=== PATIENT | male | born 1955 | race Caucasian/White ===

== ENCOUNTER → 2016-10-04 | Outpatient (REF) | payer MEDICARE, OTHER ==
[~2016-10-04] MED LIST: AMLO5TAB OR; ASPI81TA31 OR; CLAR5CHW OR; HYDR25TA6 OR; MAXA10TA17 OR; MELOPOW PO; MICA40TA OR; NEXI20CA OR; PERC5TAB8 OR; SYMB80AE IN; TELM20TA OR; VENTAER IN
== END | disposition home or self-care (01) ==
LOC: M LAB REF 16:20
PROVIDERS: ATTEND Surgery
DX: D23.4 Other benign neoplasm of skin of scalp and neck (principal); D18.01 Hemangioma of skin and subcutaneous tissue

== ENCOUNTER → 2016-10-14 | Outpatient (REF) | payer MEDICARE, OTHER | END | disposition home or self-care (01) | LOC: EEVIPCON 16:36 → M LAB REF 16:36 | PROVIDERS: ATTEND Physician Assistant | DX: T81.4XXD Infection following a procedure, subsequent encounter (principal) ==

== ENCOUNTER → 2017-04-26 | Outpatient (REF) | payer MEDICARE, OTHER ==
[~2017-04-26] MED LIST changes: +ALLE10TA2 PO; +ALLO15TA PO; +ASPI81CH PO; +ATOR40TA75 PO; +BREO1INH3 INH; +CELE100C PO; +IMBR1CAP PO; +MAXA10TA15 PO; +METH1TAB40 PO; +MICA40TA PO; +MYRB25TA PO; +PANT40TA2 PO; +PERCOCET PO; +PRED50TA PO; +PROAAER10 INH; +ROBA750T4 PO
[2017-04-26 19:51] LABS: REASON FOR REVIEW COMPREHENSIVE REVIEW
[2017-04-26 20:06] LABS: IMMUNOGLOBULIN M 29.7 MG/DL (40-230)
[2017-04-29 00:07] LABS: BETA 2 MICROGLOBULIN 3.1 mg/L (0.6-2.4); FREE KAPPA LIGHT CHAINS SERUM 51.8 mg/L (3.3-19.4); FREE LAMBDA LIGHT CHAINS SERUM 11.5 mg/L (5.7-26.3); KAPPA/LAMBDA RATIO SERUM 4.5 (0.26-1.65)
== END ==
LOC: M LAB REF 16:45
PROVIDERS: ATTEND Internal Medicine Medical Oncology
DX: R59.0 Localized enlarged lymph nodes (principal); D72.829 Elevated white blood cell count, unspecified

== ENCOUNTER → 2017-05-02 | Outpatient (CLI) | payer MEDICARE, OTHER ==
[~2017-05-02] MED LIST changes: +GASTROGRAFIN SOLUTION 30ML (Q9963) As Ordered ONE; +ISOVUE-370 76% 100ML VIAL (Q9967) As Ordered ONE
--- NOTE | 2017-05-02 16:39 | REP ---
CT NECK WITH CONTRAST: HISTORY: Lymphadenopathy. CONTRAST: Isovue-370 75 mL. The naso-, fransisca-, hypopharynx, larynx, and subglottic trachea are normal in appearance. An enlarged lymph node 1.3 cm in width is present in the left parotid gland. The right parotid submandibular and thyroid glands are normal in size and density. There are multiple enlarged lymph nodes in the internal jugular chains, posterior triangles, submandibular, submental and supraclavicular areas. The largest lymph node mass in the right internal jugular chain measures 2.6 cm. The largest lymph node mass in the left internal jugular chain measures 2 cm. An enlarged lymph node 2.4 cm in width is present in the right submandibular area. An enlarged lymph node mass 2.8 cm in width is present in the left submandibular area. The largest lymph node in the submental area measures 1.2 cm. The largest lymph node in the right posterior triangle measures 1.7 cm. The largest lymph node mass in the left posterior triangle measures 2.7 cm. The largest lymph node mass in the right supraclavicular area measures 1.4 cm. The largest lymph node mass in the left supraclavicular area measures 2.7 cm. Multiple lymph nodes are present in the visualized mediastinum. The largest lymph node measures 1.7 cm in width. The lung apices are clear. Minimal degenerative change is present in the cervical spine. The sinuses are clear. IMPRESSION:Lymphadenopathy as described above. Signed by Ron Myers MD 05/02/2017 04:51 P
--- NOTE | 2017-05-02 16:56 | REP ---
The CT of the chest with IV contrast: Comparison is eight 11/14/2010. There are no lung masses, nodules, infiltrates or effusions. There are multiple enlarged axillary nodes bilaterally. This is an interval change. There are multiple mediastinal nodes, some of which are enlarged measuring up to 15 mm. This is an interval change. There are enlarged bilateral hilar nodes as an interval change measuring up to 11 mm on the right and 11 mm on the left. The thoracic aorta is unremarkable. Cardiac size normal. There is no pericardial effusion. Impression: Multiple enlarged mediastinal, hilar and axillary nodes bilaterally. Signed by Tray Triana MD 05/02/2017 04:49 P
--- NOTE | 2017-05-02 17:05 | REP ---
CT abdomen pelvis without and with IV contrast and with bowel contrast: Comparison is 10/29/2014. The liver is homogeneous and normal size. The spleen is homogeneous and enlarged measuring 15 cm craniocaudad (10 cm previously). The gallbladder and pancreas are unremarkable. There are numerous mesenteric and retroperitoneal lymph nodes many of which are enlarged. These were not present previously. The adrenals are unremarkable. The kidneys are unremarkable. The aorta is unremarkable. There are numerous small round filling defects within the opacified small bowel loops. This is nonspecific and could represent an ingested material or could represent numerous small bowel wall, polypoid lesions. Pelvis: The appendix is unremarkable. There are enlarged internal and external iliac nodes and enlarged femoral nodes bilaterally. There are enlarged inguinal nodes bilaterally. The bladder is unremarkable. There is descending colon and sigmoid colon diverticulosis without diverticulitis. Impression: There are numerous retroperitoneal nodes including periaortic, internal, and external iliac, femoral and inguinal nodes. There are numerous mesenteric nodes. There is no ascites. There are numerous small round filling defects in the opacified small bowel loops, ingested material versus polypoid lesions. Splenomegaly. No ascites. Signed by Tray Triana MD 05/02/2017 04:57 P
== END ==
LOC: M RAD 13:35
PROVIDERS: ATTEND Internal Medicine Medical Oncology
DX: R59.0 Localized enlarged lymph nodes (principal); K57.90 Diverticulosis of intestine, part unspecified, without perforation or abscess without bleeding; R16.1 Splenomegaly, not elsewhere classified; D72.820 Lymphocytosis (symptomatic)
CPT/HCPCS: 70491; 71260; 74178; Q9963; Q9967

== ENCOUNTER → 2017-05-09 | Outpatient (REF) | payer MEDICARE, OTHER ==
[~2017-05-09] MED LIST changes: -GASTROGRAFIN SOLUTION 30ML (Q9963) As Ordered ONE; -ISOVUE-370 76% 100ML VIAL (Q9967) As Ordered ONE
[2017-05-09 19:25] LABS: INR 0.94
== END ==
LOC: M LAB REF 16:30
PROVIDERS: ATTEND Internal Medicine Medical Oncology
DX: D64.9 Anemia, unspecified (principal); D72.829 Elevated white blood cell count, unspecified; D69.6 Thrombocytopenia, unspecified

== ENCOUNTER → 2017-05-10 | Outpatient (REF) | payer MEDICARE, OTHER | LOC: M LAB REF 13:37 | PROVIDERS: ATTEND Internal Medicine Medical Oncology | DX: C91.10 Chronic lymphocytic leukemia of B-cell type not having achieved remission (principal) ==

== ENCOUNTER → 2017-05-15 | Outpatient (CLI) | payer MEDICARE, OTHER ==
[~2017-05-15] MED LIST changes: +GASTROGRAFIN SOLUTION 30ML (Q9963) As Ordered ONE; +ISOVUE-370 76% 100ML VIAL (Q9967) As Ordered ONE
--- NOTE | 2017-05-15 12:41 | REP ---
ABDOMINAL SERIES: Two views. HISTORY: Acute right lower quadrant pain. Rebound tenderness. Comparison is made with recent CT study May 02, 2017. FINDINGS: Supine and erect views of the abdomen are obtained. There is air and stool in a nondistended colon. There are a few small bowel air-fluid levels. No evidence of free air. No mass or organomegaly seen. The spleen appears enlarged and being somewhat elongate in the left upper quadrant 14.6 cm in craniocaudal span on the upright image. There are several loops of air and fluid-filled small bowel, which are mildly dilated in the left mid abdomen. These are nonspecific. Air and stool is seen in a nondistended colon proximally and distally. IMPRESSION: 1. Splenomegaly. 2. Nonspecific mildly dilated air and fluid filled loops of small bowel in the left mid abdomen. Ileus versus obstruction. No colonic dilation seen. Signed by Fidencio Negro MD 05/15/2017 03:01 P
--- NOTE | 2017-05-15 14:48 | REP ---
CT ABDOMEN PELVIS WITH IV AND ORAL CONTRAST: HISTORY: Acute right lower quadrant pain. Rebound tenderness. Comparison CT study May 02, 2017. Comparison is made with today's radiographs. CT contrast dose: 100 mL of intravenous Isovue [address] FINDINGS: The lung bases are clear. The spleen remains enlarged measuring 15.8 cm in greatest anteroposterior span, 17.0 cm on May 02, 2017. No focal splenic lesion is seen. Liver is unremarkable. Gallbladder and pancreas show no abnormality. No adrenal lesion is seen. There is cortical scarring affecting the right kidney unchanged. Small and large bowel loops show no evidence of obstruction. There is left colonic diverticulosis without CT evidence of diverticulitis. There is no evidence of free intraperitoneal air. There is diffuse retroperitoneal bilateral iliac and bilateral inguinal lymphadenopathy. Many of these have enlarged since the recent study of May 02, 2017. There is a lymph node between the portal vein and the vena cava in the upper abdomen, which measures 2.3 cm in short axis dimension today, 1.6 cm on May 02. At the level of the lower pole right kidney, there is a retrocaval lymph node measuring 1.8 cm in short axis dimension today, previously 1.4 cm. A distal left periaortic node has increased from 1.5 to 1.9 cm in short axis dimension. There is a right common iliac artery lymph node which measures 2.8 x 2.7 cm today, previously 2.0 x 2.2 cm. There are several bulky right external iliac lymph nodes and there is some surrounding fat streaking implying edema. Similar slight enlargement is seen in bilateral inguinal and left iliac lymph nodes since the recent prior study. No other acute finding. IMPRESSION: No evidence of bowel obstruction seen. There is progressive and fairly extensive adenopathy in the celiac axis, periportal, periaortic pericaval, bilateral external and internal iliac, and bilateral inguinal lymph node chains. Several lymph nodes at multiple sites have enlarged somewhat since the May 02, 2017 study. Signed by Fidencio Negro MD 05/15/2017 03:08 P
== END ==
LOC: M RAD 11:40
PROVIDERS: ATTEND Internal Medicine Medical Oncology
DX: R16.1 Splenomegaly, not elsewhere classified (principal)
CPT/HCPCS: 74020; 74177; Q9963; Q9967

== ENCOUNTER → 2017-05-17 | Outpatient (CLI) | payer MEDICARE, OTHER ==
[~2017-05-17] MED LIST changes: -GASTROGRAFIN SOLUTION 30ML (Q9963) As Ordered ONE; -ISOVUE-370 76% 100ML VIAL (Q9967) As Ordered ONE
--- NOTE | 2017-05-17 14:30 | REP ---
PET/CT: HISTORY: Restaging B-cell non-Hodgkin's lymphoma. COMPARISONS: Comparison is made with recent CT studies of the neck, chest, abdomen and pelvis. No comparison PET/ CT. TECHNIQUE: 58 minutes following the intravenous injection of a 10.9 mCi dose of F-18 FDG, three-dimensional PET scintigraphy is acquired from the skull base to the proximal thighs. Triplanar noncontrast CT scanning is acquired through the same anatomic range for attenuation correction, and image registration with scan parameters optimized to minimize radiation exposure to the patient. PET scintigraphy and CT datasets were fused and displayed on a workstation with multiplanar and projection display capability. PET/CT FINDINGS: There is fairly extensive hypermetabolic lymphadenopathy bilaterally in the neck, axillary, mediastinal, upper and lower retroperitoneal, iliac, and inguinal lymph node chains. Maximum standard uptake value in the cervical nodes and axillary nodes bilaterally is in the range of 9.8. Mediastinal nodes are somewhat smaller and a little less avid with maximum standard uptake value in the range of 5.6. Retroperitoneal lymph node avidity is fairly high with maximum standard uptake value 11.1 in upper abdominal retroperitoneal nodes. Sofia uptake in the common iliac lymph node chains is in the range of 10.6 to 10.9. Inguinal hypermetabolic sofia uptake shows standard uptake values of 8.0 and 9.3 on the right and left. No abnormal skeletal hypermetabolic uptake is seen. No abnormal pulmonary parenchymal hypermetabolic uptake. IMPRESSION: Extensive hypermetabolic bilateral lymphadenopathy in the neck, axillary, mediastinal, upper and lower retroperitoneal, iliac, and inguinal lymph node chains. Signed by Fidencio Negro MD 05/17/2017 03:25 P
== END ==
LOC: M PLARAD 08:12
PROVIDERS: ATTEND Internal Medicine Medical Oncology
DX: C85.10 Unspecified B-cell lymphoma, unspecified site (principal)
CPT/HCPCS: 78815; A9552

== ENCOUNTER 2017-05-22 10:38 | Day surgery (SDC) | payer MEDICARE, OTHER ==
[~2017-05-22] VITALS: Ht 170.2 cm; Wt 95.7 kg
[~2017-05-22 10:38] MED LIST changes: -ALLO15TA PO; -PERCOCET PO; -PRED50TA PO; -PROAAER10 INH
[2017-05-22] MEDS ORDERED: LR 1,000 ML IV ONE (10:45)
[2017-05-22] MEDS ORDERED: PERCOCET PO (11:37)
[2017-05-22] MEDS ORDERED: BACITRACIN OINT 30GM As Ordered ONE (13:03)
[2017-05-22] MEDS ORDERED: LIDOCAINE W/EPINEPHRINE 1% 20ML VIAL As Ordered ONE (13:04)
[2017-05-22] MEDS ORDERED: fentaNYL 100 MCG/2 ML INJECTION (J3010) As Ordered ONE ×2 (13:41→13:44)
[2017-05-22] MEDS ORDERED: dexameTHASONE 4 MG/ML 1ML VIAL (J1100) As Ordered ONE (13:41)
[2017-05-22] MEDS ORDERED: MIDAZOLAM INJ 2 MG/2 ML VIAL (J2250) As Ordered ONE (13:41)
[2017-05-22] MEDS ORDERED: PHENYLephrine HCL 500 MCG/5 ML (100MCG/ML) SYRINGE (J2370) As Ordered ONE (13:42)
[2017-05-22] MEDS ORDERED: ePHEDrine SULFATE 25 MG/5 ML(5MG/ML) SYRINGE As Ordered ONE ×2 (13:42→14:37)
[2017-05-22] MEDS ORDERED: VASOPRESSIN INJ 20 UNITS/ML VIAL As Ordered ONE (13:56)
[2017-05-22] MEDS ORDERED: ROCURONIUM BROMIDE 50 MG/5 ML VIAL/SYRINGE As Ordered ONE (13:58)
[2017-05-22] MEDS ORDERED: PROPOFOL 200 MG/20 ML VIAL As Ordered ONE ×2 (13:59→14:19)
[2017-05-22] MEDS ORDERED: SUCCINYLCHOLINE 100 MG/5 ML SYRINGE (J0330) As Ordered ONE (13:59)
[2017-05-22] MEDS ORDERED: NEOSTIGMINE 1MG/ML 5 ML SYRINGE (J2710) As Ordered ONE (14:03)
[2017-05-22] MEDS ORDERED: GLYCOPYRROLATE INJ 0.2 MG/ML 2 ML VIAL As Ordered ONE (14:03)
[2017-05-22] MEDS ORDERED: ONDANSETRON 4MG/2ML VIAL (J2405) As Ordered ONE (14:04)
[2017-05-22] MEDS ORDERED: LIDOCAINE 2% INJ 100 MG/5 ML SDV (FOR ANES.) As Ordered ONE (14:05)
[2017-05-22] MEDS: ePHEDrine SULFATE 25 MG/5 ML(5MG/ML) SYRINGE IV SCH ×3 (14:30→14:38)
[2017-05-22] MEDS ORDERED: LR 1,000 ML IV SCH (14:45)
[2017-05-22] MEDS ORDERED: fentaNYL 100 MCG/2 ML INJECTION (J3010) IV PRN (14:45)
[2017-05-22] MEDS ORDERED: PERCOCET 5MG/325MG TAB PO PRN ×2 (14:45)
[2017-05-22] MEDS ORDERED: ONDANSETRON 4 MG TAB (S0181) PO PRN (14:45)
[2017-05-22] MEDS ORDERED: ONDANSETRON 4MG/2ML VIAL (J2405) IV PRN (14:45)
[2017-05-22] MEDS ORDERED: METOCLOPRAMIDE INJ 10MG/2ML VIAL (J2765) IV PRN (14:45)
[2017-05-22 17:30] VITALS: BP 137/79
--- NOTE | 2017-05-22 20:20 | RO ---
DATE OF PROCEDURE: 05/22/2017 PREPROCEDURE DIAGNOSIS: Lymphadenopathy. POSTPROCEDURE DIAGNOSIS: Lymphadenopathy. PROCEDURE: Excision of posterior triangle lymph nodes. SURGEON: Dr. Fabricio Marmolejo FLAT KNITTER: ANESTHESIA: INDICATIONS: This is a patient who presents with diffuse lymphadenopathy, thought to have a hematological or lymphatic neoplasm. Tissue diagnosis is required for establishing treatment plan. DESCRIPTION OF PROCEDURE: Satisfactory general endotracheal anesthesia was administered, patient was placed in a position that allowed access to the posterior triangle of his right neck. He was positioned properly. Then, the neck was prepped and draped in the usual sterile fashion. Horizontal incision was made in nature skin crease of the posterior triangle. Platysma muscle was divided. Immediately below the platysma, a large matted group of lymph nodes was visible everywhere. With hemostat dissection, the largest lymph node in the surgical field was dissected free and removed in its entirety and sent for permanent section. Small vessels feeding lymph node were cauterized using bipolar cautery. One larger pedicle was clamped, cut and then ligated with a #4-0 Vicryl suture. The incision was closed using interrupted #3-0 Vicryl suture, skin was closed using a running locking #5-0 nylon suture. He tolerated the procedure well and was sent to recovery in satisfactory condition. He will be seen back in the office in 1 week for suture removal. Copy To: Dr. Iliana Lombardi, Hematology/Oncology
[2017-06-23] MEDS ORDERED: PRED50TA PO (12:37)
[2017-06-23] MEDS ORDERED: ALLO15TA PO (12:37)
[2017-06-23] MEDS ORDERED: PROAAER10 INH (12:37)
== END 2017-05-22 17:40 | disposition home or self-care (01) ==
LOC: M SDC 10:38
PROVIDERS: ATTEND Specialist
DX: C83.11 Mantle cell lymphoma, lymph nodes of head, face, and neck (principal); D64.9 Anemia, unspecified; I11.9 Hypertensive heart disease without heart failure; J45.909 Unspecified asthma, uncomplicated; G47.33 Obstructive sleep apnea (adult) (pediatric); I45.10 Unspecified right bundle-branch block; Z86.14 Personal history of Methicillin resistant Staphylococcus aureus infection; I25.2 Old myocardial infarction; E78.00 Pure hypercholesterolemia, unspecified; K21.9 Gastro-esophageal reflux disease without esophagitis; C91.10 Chronic lymphocytic leukemia of B-cell type not having achieved remission; N40.0 Benign prostatic hyperplasia without lower urinary tract symptoms; Z79.899 Other long term (current) drug therapy; Z79.51 Long term (current) use of inhaled steroids; Z79.82 Long term (current) use of aspirin; Z88.1 Allergy status to other antibiotic agents; Z86.73 Personal history of transient ischemic attack (TIA), and cerebral infarction without residual deficits
CPT/HCPCS: 38510; 88307; J0330; J1100; J2250; J2370; J2405; J2710; J3010

== ENCOUNTER → 2017-05-23 | Outpatient (REF) | payer MEDICARE, OTHER ==
[~2017-05-23] MED LIST changes: +ALLO15TA PO; +PERCOCET PO; +PRED50TA PO; +PROAAER10 INH
== END ==
LOC: M LAB REF 13:07
PROVIDERS: ATTEND Internal Medicine Medical Oncology
DX: C91.10 Chronic lymphocytic leukemia of B-cell type not having achieved remission (principal)

== ENCOUNTER → 2017-05-24 | Outpatient (REF) | payer MEDICARE, OTHER | LOC: M LAB REF 15:12 | PROVIDERS: ATTEND Internal Medicine Medical Oncology | DX: C91.10 Chronic lymphocytic leukemia of B-cell type not having achieved remission (principal) ==

== ENCOUNTER → 2017-05-25 | Outpatient (REF) | payer MEDICARE, OTHER | LOC: M LAB REF 14:17 | PROVIDERS: ATTEND Internal Medicine Medical Oncology | DX: C91.10 Chronic lymphocytic leukemia of B-cell type not having achieved remission (principal) ==

== ENCOUNTER → 2017-05-26 | Outpatient (REF) | payer MEDICARE, OTHER | LOC: M LAB REF 08:06 | PROVIDERS: ATTEND Internal Medicine Medical Oncology | DX: D72.829 Elevated white blood cell count, unspecified (principal) ==

== ENCOUNTER → 2017-05-30 | Outpatient (REF) | payer MEDICARE, OTHER | LOC: M LAB REF 17:11 | PROVIDERS: ATTEND Internal Medicine Medical Oncology | DX: C91.10 Chronic lymphocytic leukemia of B-cell type not having achieved remission (principal) ==

== ENCOUNTER → 2017-06-14 | Outpatient (CLI) | payer MEDICARE, OTHER ==
[~2017-06-14] MED LIST changes: +ISOVUE-370 76% 100ML VIAL (Q9967) As Ordered ONE
--- NOTE | 2017-06-14 16:44 | REP ---
CT pulmonary angiogram: With IV contrast. History: Increasing back pain. Dyspnea. The patient has known B-cell non-Hodgkin's lymphoma. Comparison studies: Comparison chest CT with contrast from May 02, 2017. Contrast dose: 75 cc's of Isovue [address] technique: Helical scanning is acquired and overlapping 1.5 mm and contiguous 3 mm axial images are reformatted. In addition, a 3-D work station is deployed to generate thick slab maximum intensity projection images in sagittal and coronal imaging projections. CT pulmonary angiographic findings: There is good opacification of the pulmonary arterial tree and there is no CT evidence of pulmonary embolism. Maximum intensity projection images show no vessel cutoff or filling defect in the pulmonary arterial tree. The thoracic aorta enhances homogeneously and is normal in caliber and course. There is no evidence of dissection or aneurysm. No hilar or mediastinal mass is seen. There are scattered normal-sized mediastinal lymph nodes again noted. Bilateral axillary adenopathy is noted, unchanged. No retrocrural adenopathy is seen. There are multiple small celiac axis upper abdominal lymph nodes. The mediastinal lymph nodes and the celiac axis lymph nodes may be somewhat smaller than on the May 02, 2017 study. Lung window settings show no evidence of infiltrate or significant atelectasis. No bony destructive lesion is seen. Impression: 1. No CT evidence of pulmonary embolus or thoracic aortic dissection or aneurysm. 2. Bilateral axillary lymphadenopathy, unchanged. 3. Scattered mediastinal and upper abdominal lymph nodes are a little less prominent than on May 02, 2017.4. Otherwise no significant finding. Signed by Fidencio Negro MD 06/14/2017 06:40 P
== END ==
LOC: M RAD 15:29
PROVIDERS: ATTEND Nurse Practitioner Family
DX: C83.13 Mantle cell lymphoma, intra-abdominal lymph nodes (principal)
CPT/HCPCS: 71275; 81001; Q9967

== ENCOUNTER → 2017-06-14 | Outpatient (REF) | payer MEDICARE, OTHER ==
[~2017-06-14] MED LIST changes: -ISOVUE-370 76% 100ML VIAL (Q9967) As Ordered ONE
[2017-06-14 18:23] LABS: CALCIUM OXALATE CRYSTALS SMALL
== END ==
LOC: M LAB REF 17:23
PROVIDERS: ATTEND Internal Medicine Medical Oncology
DX: C83.13 Mantle cell lymphoma, intra-abdominal lymph nodes (principal)

== ENCOUNTER → 2017-06-16 | Outpatient (REF) | payer MEDICARE, OTHER ==
[2017-06-16 14:06] LABS: INR 0.9
== END ==
LOC: M LAB REF 13:26
PROVIDERS: ATTEND Internal Medicine Medical Oncology
DX: C83.10 Mantle cell lymphoma, unspecified site (principal)

== ENCOUNTER → 2017-06-23 | Outpatient (CLI) | payer MEDICARE, OTHER ==
[2017-06-23 10:49] LABS: BASO # 0.2 10^3/uL (0.0-0.2); BASO % 1.1 % (0.0-1.0); EOS % 0.1 % (0.0-3.0); IMMATURE GRANULOCYTE % 4.7 % (0-0); LYMPH # 0.9 10^3/uL (1.5-4.5); LYMPH % 6.5 % (24.0-44.0); MEAN CORPUSCULAR HEMOGLOBIN 29.9 pg (27.0-33.0); MEAN CORPUSCULAR HGB CONC 34.1 g/dl (32.0-36.5); MEAN CORPUSCULAR VOLUME 87.7 fl (80.0-96.0); MONO # 1.1 10^3/uL (0.0-0.8); MONO % 7.6 % (0.0-5.0); NEUTROPHILS # 11.4 10^3/uL (1.8-7.7); PLATELET COUNT, AUTOMATED 280 10^3/uL (150-450); RED CELL DISTRIBUTION WIDTH 14.1 % (11.5-14.5); WHITE BLOOD COUNT 14.3 10^3/uL (4.0-10.0)
[2017-06-23 11:23] LABS: ANION GAP 8 MEQ/L (8-16); BLOOD UREA NITROGEN 13 MG/DL (7-18); CALCIUM LEVEL 8.8 MG/DL (8.8-10.2); CARBON DIOXIDE LEVEL 24 MEQ/L (21-32); CHLORIDE LEVEL 105 MEQ/L (98-107); CREATININE FOR GFR 1.05 MG/DL (0.70-1.30); GLOMERULAR FILTRATION RATE > 60.0 (>49); GLUCOSE, FASTING 123 MG/DL (80-110); POTASSIUM SERUM 4.2 MEQ/L (3.5-5.1); SODIUM LEVEL 137 MEQ/L (136-145)
--- NOTE | 2017-06-23 16:39 | REP ---
The lung nash are clear. The cardiac size is normal The avtar, mediastinum, and bony thorax are unremarkable. Impression: Negative PA and lateral chest. : Comparison is 08/09/2011. The lung nash are clear. The cardiac size is normal The avtar, mediastinum, and bony thorax are unremarkable. Impression: Negative PA and lateral chest. There is no interval change. Signed by Tray Triana MD 06/23/2017 04:30 P
--- NOTE | 2017-06-23 23:29 | ECGEPIP ---
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
== END ==
LOC: M LAB 10:10
PROVIDERS: ATTEND Thoracic Surgery (Cardiothoracic Vascular Surgery)
DX: Z01.818 Encounter for other preprocedural examination (principal)

== ENCOUNTER → 2017-06-26 | Outpatient (REF) | payer MEDICARE, OTHER | LOC: M LAB REF 13:25 | PROVIDERS: ATTEND Internal Medicine Medical Oncology | DX: C85.90 Non-Hodgkin lymphoma, unspecified, unspecified site (principal) ==

== ENCOUNTER 2017-06-27 08:23 | Day surgery (SDC) | payer MEDICARE, OTHER ==
[~2017-06-27] VITALS: Ht 170.2 cm; Wt 89.8 kg
[2017-06-27] MEDS ORDERED: VANCOMYCIN 1000 MG/20 ML VIAL (J3370) As Ordered ONE (08:37)
[2017-06-27] MEDS ORDERED: HEPARIN SOD (PORCINE) 5000 UNITS/ML VIAL As Ordered ONE (08:39)
[2017-06-27] MEDS ORDERED: BUPIVACAINE LIPOSOME/PF 1.3% 20 ML VIAL (13.3MG/ML)(EXPAREL) As Ordered ONE (08:39)
[2017-06-27] MEDS ORDERED: LIDOCAINE 1% SDV INJ 30 ML VIAL As Ordered ONE (08:40)
[2017-06-27] MEDS ORDERED: LR 1,000 ML IV ONE (08:45)
[2017-06-27] MEDS ORDERED: VANCOMYCIN HCL 1,000 MG, VIAL MATE ADAPTER 1 EACH in D5W 250 ML IV ONE (08:45)
[2017-06-27] MEDS ORDERED: MUPIROCIN 2% OINT 22 GM TUBE TOP ONE (08:45)
[2017-06-27] MEDS ORDERED: fentaNYL 100 MCG/2 ML INJECTION (J3010) As Ordered ONE (10:19)
[2017-06-27] MEDS ORDERED: MIDAZOLAM INJ 2 MG/2 ML VIAL (J2250) As Ordered ONE (10:19)
[2017-06-27] MEDS ORDERED: dexameTHASONE 4 MG/ML 1ML VIAL (J1100) As Ordered ONE (10:20)
[2017-06-27] MEDS ORDERED: LIDOCAINE 2% INJ 100 MG/5 ML SDV (FOR ANES.) As Ordered ONE (10:20)
[2017-06-27] MEDS ORDERED: ONDANSETRON 4MG/2ML VIAL (J2405) As Ordered ONE (10:20)
[2017-06-27] MEDS ORDERED: PROPOFOL 200 MG/20 ML VIAL As Ordered ONE (10:20)
[2017-06-27 11:30] VITALS: BP 133/82
--- NOTE | 2017-06-27 11:51 | REP ---
Chest x-ray: Limited study three views. History: Hswzzz-E-Lxwr insertion. 38 seconds of fluoroscopy time is reported. Findings: A sequence of three last image hold fluoroscopic spot radiographs of the chest document left subclavian Njuzsd-J-Nmso catheter placement. Signed by Fidencio Negro MD 06/27/2017 03:31 P
--- NOTE | 2017-06-27 12:04 | REP ---
Portable chest x-ray: Single view. History: Status post Zpfoth-Z-Vads placement. Comparison study: June 23, 2017. Findings: A left subclavian Lobajf-R-Gfiw catheter has been inserted with its tip in the expected location of the superior vena cava. Heart is not enlarged. There is no evidence of pneumothorax. Pleural angles are sharp. Pulmonary vasculature is not increased. Impression: Ntmgzx-O-Vqyn catheter in place. No pneumothorax or other complication seen. Signed by Fidencio Negro MD 06/27/2017 03:32 P
--- NOTE | 2017-06-27 16:08 | RO ---
DATE OF PROCEDURE: 06/27/2017 PREPROCEDURE DIAGNOSES: Mantle cell lymphoma, need for chemotherapy vascular access. POSTPROCEDURE DIAGNOSES: Mantle cell lymphoma, need for chemotherapy, vascular access. OPERATIVE PROCEDURE: Insertion of left subclavian Jimmcf-W-Fuhn under fluoroscopic control. SURGEON: Freeman Nicolas MD FOOTWEAR STITCHER: ANESTHESIA: FINDINGS: All contours were smooth at the end of the procedure and the catheter was positioned at the junction of the right atrium and superior vena cava. DESCRIPTION OF PROCEDURE: Under satisfactory monitored anesthesia care (MAC) anesthesia, the patient was prepped and draped in the usual sterile fashion. The left infraclavicular fossa was infiltrated with 1% lidocaine and the subclavian vein was found on the second pass. A wire was placed and confirmed via fluoroscopic control. The port incision was then marked, infiltrated with Exparel and an incision was made. A subcutaneous pocket was made by use of electrocautery and sharp and blunt dissection. Hemostasis was controlled by use of electrocautery. The entry point wire site was incised and a dilator passed. A Peel-Away introducer was then attached and the catheter was placed low numbers down into the right atrium. A tunnel was created and the catheter pulled through the tunnel. It has been positioned at the junction of the right atrium and superior vena cava. Catheter was cut to an appropriate length. Collar was placed and the port was placed upon the catheter. The port was secured to the chest wall with #2-0 silk sutures. Port was flushed with heparin and saline and then with a final flush of 100 units per mL of heparin. Subcutaneous tissues were closed with a running #3-0 Vicryl suture and the skin was closed with running #4-0 Monocryl subcuticular suture. The patient tolerated the procedure well and left the operating room in satisfactory condition for recovery.
== END 2017-06-27 11:52 | disposition home or self-care (01) ==
LOC: M SDC 08:23
PROVIDERS: ATTEND Thoracic Surgery (Cardiothoracic Vascular Surgery)
DX: C83.11 Mantle cell lymphoma, lymph nodes of head, face, and neck (principal); C83.12 Mantle cell lymphoma, intrathoracic lymph nodes; I10 Essential (primary) hypertension; I25.2 Old myocardial infarction; K21.9 Gastro-esophageal reflux disease without esophagitis; M12.9 Arthropathy, unspecified; G43.909 Migraine, unspecified, not intractable, without status migrainosus; J45.909 Unspecified asthma, uncomplicated; G47.33 Obstructive sleep apnea (adult) (pediatric); Z88.1 Allergy status to other antibiotic agents; Z79.899 Other long term (current) drug therapy; Z79.82 Long term (current) use of aspirin
CPT/HCPCS: 36561; 71010; 76000; 96374; C1788; J2250; J2405; J3010; J3370

== ENCOUNTER → 2017-06-28 | Outpatient (CLI) | payer MEDICARE, OTHER ==
--- NOTE | 2017-06-29 05:24 | ECHO ---
DATE OF PROCEDURE: 06/28/2017 DATE OF : 1955 AGE: 61 REFERRING PROVIDER: Dr. Iliana Lombardi PATIENT LOCATION: Outpatient. REASON FOR THE ECHOCARDIOGRAM: Chemotherapy drug monitoring. 2D MEASUREMENTS: IVS: 1.2 cm LV: 4.1 cm LVPW: 1.2 cm LA: 3.4 cm Aorta: 3.7 cm IVC: 1.7 cm DOPPLER MEASUREMENTS: Peak velocity across the aortic valve: 1.3 m/s Peak velocity across the LVOT: 0.96 m/s Mitral E: 0.76, Mitral A: 1.1 with a ratio of 0.7 Maximum tricuspid valve velocity: 2.2 m/s 2D COMMENTS: 1. Normal left ventricular size, wall thickness, and normal global left ventricular systolic function. The estimated left ventricular systolic ejection fraction is 65-70%. 2. Normal left atrium. Normal right atrium and right ventricle. 3. The atrial septum appeared to be normal without evidence of defect or shunt. 4. Normal aortic root. 5. Trace pericardial effusion noted, no evidence of cardiac tamponade. 6. The aortic valve, mitral valve, tricuspid valve, and pulmonic valve appear to be normal. The proximal pulmonary artery branches were not well visualized. 7. The inferior vena cava was normal in size, central venous pressure is most likely normal. DOPPLER: It detects mild mitral regurgitation and trace to mild tricuspid regurgitation. The calculated pulmonary artery systolic pressure was normal. Abnormal relaxation pattern was noted across the mitral valve leaflets as well as the mitral valve annulus consistent with grade 1 left ventricular diastolic dysfunction. IMPRESSION: 1. Normal global left ventricular systolic function. There were features of left ventricular diastolic dysfunction manifested by abnormal relaxation. 2. Mild mitral regurgitation. 3. Trace to mild tricuspid regurgitation with a normal calculated pulmonary artery systolic pressure. 4. Trace pericardial effusion noted, no evidence of cardiac tamponade. 5. Patient was noted to be mildly tachycardic during the test with a heart rate that varied between 100-110 beats per minute. Edited: 06/29/2017 0535 robert DIEGO
== END ==
LOC: M CARPUL 11:09
PROVIDERS: ATTEND Internal Medicine Medical Oncology
DX: R06.02 Shortness of breath (principal)

== ENCOUNTER → 2017-06-30 | Outpatient (CLI) | payer MEDICARE, OTHER ==
[~2017-06-30] MED LIST changes: +GASTROGRAFIN SOLUTION 30ML (Q9963) As Ordered ONE; +ISOVUE-370 76% 100ML VIAL (Q9967) As Ordered ONE
--- NOTE | 2017-06-30 15:36 | REP ---
CT of the chest with IV contrast: Comparisons are 05/02/2017 and 06/14/2017. There are bilateral enlarged axillary nodes although they has significantly decreased in size from both prior studies. There are mediastinal nodes. These nodes have decreased in size and appear to be normal size. There is no hilar adenopathy on the right on the left. The hilar adenopathy identified 05/14/2017 has resolved. There are no infiltrates or effusions. The thoracic aorta is unremarkable. Cardiac size is normal. There is no pericardial effusion. No lytic, blastic or destructive skeletal changes are identified. Impression: The previously enlarged axillary nodes have significantly decreased in size. Some are now borderline enlarged. The others appear normal size. The previous enlarged mediastinal and bilateral hilar nodes are not wall normal size. Signed by Tray Triana MD 06/30/2017 03:27 P
--- NOTE | 2017-06-30 16:02 | REP ---
CT of the abdomen pelvis with IV and oral contrast: Comparisons are 05/02/2017 and 05/15/2017. The mesenteric nodes have significantly decreased in number and size . Is difficult to a even the find a mesenteric node on the study today.. The retroperitoneal nodes have significantly decreased in number and size. The remaining mesenteric and retroperitoneal nodes are normal size. There is no ascites. The multiple filling defects that were identified in small bowel loops 05/02/2017 are no longer identified. There is wall thickening of the ascending colon, transverse colon, descending colon and sigmoid colon as an interval change. This is compatible with colitis in the appropriate clinical setting. This was not present on the prior studies. There is no ascites. There are focal zones of renal cortical scarring in the right kidney, unchanged from the prior studies, likely residual of pyelonephritis or renal infarcts. No renal masses are identified. The spleen is enlarged measuring 14 cm craniocaudad. This is unchanged. The number of lymph nodes in the pelvis has decreased bilaterally. These lymph nodes are now normal size. Impression: The number of lymph nodes has significantly decreased. The remaining lymph nodes are normal size. There is wall thickening of the colon. The appropriate clinical setting this is compatible with colitis. This was not present previously. The small bowel filling defects identified on 05/02/2017 are no longer present. Signed by Tray Triana MD 06/30/2017 03:53 P
== END ==
LOC: M RAD 12:53
PROVIDERS: ATTEND Internal Medicine Medical Oncology
DX: C83.30 Diffuse large B-cell lymphoma, unspecified site (principal)
CPT/HCPCS: 71260; 74178; Q9963; Q9967

== ENCOUNTER → 2017-07-03 | Outpatient (CLI) | payer MEDICARE, OTHER ==
[~2017-07-03] MED LIST changes: -GASTROGRAFIN SOLUTION 30ML (Q9963) As Ordered ONE; -ISOVUE-370 76% 100ML VIAL (Q9967) As Ordered ONE
--- NOTE | 2017-07-03 11:24 | REP ---
Chest two views HISTORY: Lymphoma Comparison: 06/27/2017 The lungs are clear. The heart is normal in size. The pulmonary vasculature is normal in appearance. The bony structure is intact. An Utjvib-Q-Qftv catheter is present. IMPRESSION: No acute disease. Signed by Ron Myers MD 07/03/2017 11:16 A
== END ==
LOC: M SMT 10:14
PROVIDERS: ATTEND Thoracic Surgery (Cardiothoracic Vascular Surgery)
DX: C83.10 Mantle cell lymphoma, unspecified site (principal)

== ENCOUNTER → 2017-07-25 | Outpatient (REF) | payer MEDICARE, OTHER | LOC: M LAB REF 13:20 | PROVIDERS: ATTEND Internal Medicine Medical Oncology | DX: C85.90 Non-Hodgkin lymphoma, unspecified, unspecified site (principal) ==

== ENCOUNTER → 2017-08-10 | Outpatient (REF) | payer MEDICARE, OTHER | LOC: M LAB REF 13:33 | PROVIDERS: ATTEND Internal Medicine Medical Oncology | DX: C83.10 Mantle cell lymphoma, unspecified site (principal) ==

== ENCOUNTER → 2017-08-28 | Outpatient (REF) | payer MEDICARE, OTHER ==
[2017-08-28 14:33] LABS: MAGNESIUM LEVEL 1.9 MG/DL (1.8-2.4); URIC ACID 4.7 MG/DL (3.5-7.2)
== END ==
LOC: M LAB REF 13:54
PROVIDERS: ATTEND Internal Medicine Medical Oncology
DX: C83.10 Mantle cell lymphoma, unspecified site (principal)

== ENCOUNTER → 2017-08-31 | Outpatient (REF) | payer MEDICARE, OTHER | LOC: M LAB REF 13:44 | PROVIDERS: ATTEND Internal Medicine Medical Oncology | DX: C83.10 Mantle cell lymphoma, unspecified site (principal) ==

== ENCOUNTER 2017-09-04 18:42 | Outpatient (CLI) | payer MEDICARE, OTHER ==
[~2017-09-04] VITALS: Ht 170.2 cm; Wt 94.6 kg
[2017-09-04] MEDS ORDERED: SODIUM CHLORIDE 0.9% INJ 10 ML SYR IV PRN (19:00)
[2017-09-04] MEDS ORDERED: ACETAMINOPHEN TAB 650MG DOSE (2X325MG) PO ONE (19:15)
[2017-09-04] MEDS ORDERED: diphenhydrAMINE 25 MG CAP PO ONE (19:15)
[2017-09-05] MEDS ORDERED: SODIUM CHLORIDE 0.9% INJ 10 ML SYR IV SCH (09:00)
== END 2017-09-04 23:21 | disposition home or self-care (01) ==
LOC: M INFU 18:42 → M MSPAV 18:46 → M INFU 23:21
PROVIDERS: ATTEND Nurse Practitioner Family
DX: T45.1X5A Adverse effect of antineoplastic and immunosuppressive drugs, initial encounter (principal); C83.10 Mantle cell lymphoma, unspecified site; D69.59 Other secondary thrombocytopenia; Z79.82 Long term (current) use of aspirin; Z79.899 Other long term (current) drug therapy; Z88.1 Allergy status to other antibiotic agents
CPT/HCPCS: 36430; 86900; 86901; P9036

== ENCOUNTER → 2017-09-04 | Outpatient (REF) | payer MEDICARE, OTHER | LOC: M LAB REF 12:11 | PROVIDERS: ATTEND Nurse Practitioner Family | DX: C83.10 Mantle cell lymphoma, unspecified site (principal); D69.59 Other secondary thrombocytopenia; T45.1X5A Adverse effect of antineoplastic and immunosuppressive drugs, initial encounter ==

== ENCOUNTER 2017-09-26 16:21 | Outpatient (CLI) | payer MEDICARE, OTHER ==
[2017-09-26] MEDS: ACETAMINOPHEN TAB 650MG DOSE (2X325MG) PO (17:09)
[2017-09-26] MEDS: diphenhydrAMINE 25 MG CAP PO (17:09)
[2017-09-26] MEDS: SODIUM CHLORIDE 0.9% INJ 10 ML SYR IV (22:45)
== END 2017-09-26 22:50 | disposition home or self-care (01) ==
LOC: M OPCLI4PR 22:50 → M MS4PR 16:29
DX: D64.81 Anemia due to antineoplastic chemotherapy (principal)
CPT/HCPCS: 36430

== ENCOUNTER → 2017-09-26 | Outpatient (REF) | payer MEDICARE, OTHER ==
[2017-09-26 17:52] LABS: IMMEDIATE SPIN CROSSMATCH 1 4
== END ==
LOC: M LAB REF 11:33
DX: D64.81 Anemia due to antineoplastic chemotherapy (principal)

== ENCOUNTER → 2017-10-09 | Outpatient (REF) | payer MEDICARE, OTHER ==
[2017-10-10 10:59] LABS: IMMEDIATE SPIN CROSSMATCH 1 2
== END ==
LOC: M LAB REF 12:24
DX: D64.81 Anemia due to antineoplastic chemotherapy (principal)
CPT/HCPCS: 86900

== ENCOUNTER 2017-10-10 08:39 | Outpatient (CLI) | payer MEDICARE, OTHER ==
[2017-10-10] MEDS: ACETAMINOPHEN TAB 650MG DOSE (2X325MG) PO (08:50)
[2017-10-10] MEDS: diphenhydrAMINE 25 MG CAP PO (08:51)
[2017-10-10] MEDS: SODIUM CHLORIDE 0.9% INJ 10 ML SYR IV (13:03)
== END 2017-10-10 13:30 | disposition home or self-care (01) ==
LOC: M INFU 08:39
DX: D64.81 Anemia due to antineoplastic chemotherapy (principal); C83.13 Mantle cell lymphoma, intra-abdominal lymph nodes; I10 Essential (primary) hypertension; G47.30 Sleep apnea, unspecified; R16.0 Hepatomegaly, not elsewhere classified; J45.909 Unspecified asthma, uncomplicated; M19.90 Unspecified osteoarthritis, unspecified site; Z79.82 Long term (current) use of aspirin; Z79.899 Other long term (current) drug therapy; Z88.0 Allergy status to penicillin; Z98.61 Coronary angioplasty status; Z86.73 Personal history of transient ischemic attack (TIA), and cerebral infarction without residual deficits; Z99.89 Dependence on other enabling machines and devices
CPT/HCPCS: 36430

== ENCOUNTER → 2017-11-02 | Outpatient (CLI) | payer MEDICARE, OTHER | LOC: M RAD 15:48 | DX: C83.10 Mantle cell lymphoma, unspecified site (principal); Z92.21 Personal history of antineoplastic chemotherapy | CPT/HCPCS: 71046 ==

== ENCOUNTER → 2017-11-08 | Outpatient (REF) | payer MEDICARE, OTHER | LOC: M LAB REF 16:18 | DX: C83.10 Mantle cell lymphoma, unspecified site (principal) | CPT/HCPCS: 88300 ==

== ENCOUNTER → 2017-11-23 | Outpatient (REF) | payer MEDICARE, OTHER ==
[2017-11-23 18:59] LABS: ALBUMIN 3.6 GM/DL (3.2-5.2); ALBUMIN/GLOBULIN RATIO 1.44 (1.00-1.93); ALKALINE PHOSPHATASE 86 U/L (45-117); ALT/SGPT 36 U/L (12-78); ANION GAP 8 MEQ/L (8-16); AST/SGOT 19 U/L (7-37); BILIRUBIN,TOTAL 0.5 MG/DL (0.2-1.0); BLOOD UREA NITROGEN 9 MG/DL (7-18); CALCIUM LEVEL 8.6 MG/DL (8.8-10.2); CARBON DIOXIDE LEVEL 28 MEQ/L (21-32); CHLORIDE LEVEL 107 MEQ/L (98-107); CHOLESTEROL LEVEL 156 MG/DL (<200); CREATININE FOR GFR 0.97 MG/DL (0.70-1.30); FREE T4 0.99 NG/DL (0.76-1.46); GLOMERULAR FILTRATION RATE > 60.0 (>49); GLUCOSE, FASTING 165 MG/DL (70-100); HDL CHOLESTEROL 52 MG/DL (>40); LDL CHOLESTEROL 64.6 MG/DL (<100); NON-HDL-C 104 MG/DL; POTASSIUM SERUM 3.7 MEQ/L (3.5-5.1); SODIUM LEVEL 143 MEQ/L (136-145); THYROID STIMULATING HORMONE 0.904 uIU/ML (0.358-3.740); TOTAL PROTEIN 6.1 GM/DL (6.4-8.2); TRIGLYCERIDES LEVEL 197 MG/DL (<150)
[2017-11-23 19:49] LABS: ESTIMATED AVERAGE GLUCOSE 97 MG/DL (60-110)
[2017-11-23 20:04] LABS: TOTAL 25(OH) VITAMIN D 22.5 NG/ML (30.0-100.0)
[2017-11-23 20:05] LABS: FOLATE 11.3 NG/ML; VITAMIN B12 LEVEL > 2000 PG/ML
== END ==
LOC: M LAB REF 17:20
DX: C85.17 Unspecified B-cell lymphoma, spleen (principal); Z79.899 Other long term (current) drug therapy
CPT/HCPCS: 82746

== ENCOUNTER → 2018-03-30 | Outpatient (REF) | payer MEDICARE, OTHER ==
[2018-03-30 13:30] LABS: BASO % 0.3 % (0.0-1.0); EOS # 1.1 10^3/uL (0.0-0.50); EOS % 12.1 % (0.0-3.0); HEMATOCRIT 34.7 % (42.0-52.0); HEMOGLOBIN 12.1 g/dl (13.5-17.5); IMMATURE GRANULOCYTE % 0.4 % (0-3.0); LYMPH # 1.4 10^3/uL (1.5-4.5); LYMPH % 15.3 % (24.0-44.0); MEAN CORPUSCULAR HEMOGLOBIN 32.4 pg (27.0-33.0); MEAN CORPUSCULAR HGB CONC 34.9 g/dl (32.0-36.5); MEAN CORPUSCULAR VOLUME 92.8 fl (80.0-96.0); MONO # 0.8 10^3/uL (0.0-0.8); MONO % 8.3 % (0.0-5.0); NEUTROPHILS # 5.8 10^3/uL (1.8-7.7); NEUTROPHILS % 63.6 % (36.0-66.0); PLATELET COUNT, AUTOMATED 275 10^3/uL (150-450); RED BLOOD COUNT 3.74 10^6/uL (4.30-6.10); RED CELL DISTRIBUTION WIDTH 13.4 % (11.5-14.5); WHITE BLOOD COUNT 9.1 10^3/uL (4.0-10.0)
[2018-03-30 13:57] LABS: ALBUMIN 3.8 GM/DL (3.2-5.2); ALBUMIN/GLOBULIN RATIO 1.36 (1.00-1.93); ALKALINE PHOSPHATASE 117 U/L (45-117); ALT/SGPT 48 U/L (12-78); ANION GAP 9 MEQ/L (8-16); AST/SGOT 24 U/L (7-37); BILIRUBIN,TOTAL 0.4 MG/DL (0.2-1.0); BLOOD UREA NITROGEN 16 MG/DL (7-18); CALCIUM LEVEL 8.9 MG/DL (8.8-10.2); CARBON DIOXIDE LEVEL 24 MEQ/L (21-32); CHLORIDE LEVEL 108 MEQ/L (98-107); CREATININE FOR GFR 1.72 MG/DL (0.70-1.30); GLOMERULAR FILTRATION RATE 43.3 (>49); GLUCOSE, FASTING 202 MG/DL (70-100); LDH LACTATE DEHYDROGENASE 236 U/L (87-241); POTASSIUM SERUM 4.2 MEQ/L (3.5-5.1); SODIUM LEVEL 141 MEQ/L (136-145); TOTAL PROTEIN 6.6 GM/DL (6.4-8.2)
[2018-04-01 16:58] LABS: FK 506 (TACROLIMUS) LABCORP 14.6 ng/mL (2.0-20.0)
== END ==
LOC: M LAB REF 13:19
DX: C83.10 Mantle cell lymphoma, unspecified site (principal); Z94.81 Bone marrow transplant status
CPT/HCPCS: 83615

== ENCOUNTER → 2018-04-06 | Outpatient (REF) | payer MEDICARE, OTHER ==
[2018-04-06 14:32] LABS: BASO # 0.1 10^3/uL (0.0-0.2); BASO % 0.9 % (0.0-1.0); EOS # 1.1 10^3/uL (0.0-0.50); HEMATOCRIT 34.7 % (42.0-52.0); IMMATURE GRANULOCYTE % 0.7 % (0-3.0); LYMPH # 1.3 10^3/uL (1.5-4.5); LYMPH % 23.1 % (24.0-44.0); MEAN CORPUSCULAR HEMOGLOBIN 32.5 pg (27.0-33.0); MEAN CORPUSCULAR HGB CONC 34.6 g/dl (32.0-36.5); MONO # 0.6 10^3/uL (0.0-0.8); MONO % 11.7 % (0.0-5.0); NEUTROPHILS # 2.3 10^3/uL (1.8-7.7); NEUTROPHILS % 43.2 % (36.0-66.0); PLATELET COUNT, AUTOMATED 236 10^3/uL (150-450); RED BLOOD COUNT 3.69 10^6/uL (4.30-6.10); RED CELL DISTRIBUTION WIDTH 13.4 % (11.5-14.5); WHITE BLOOD COUNT 5.4 10^3/uL (4.0-10.0)
[2018-04-06 15:05] LABS: ALBUMIN 3.7 GM/DL (3.2-5.2); ALBUMIN/GLOBULIN RATIO 1.28 (1.00-1.93); ALKALINE PHOSPHATASE 142 U/L (45-117); ALT/SGPT 61 U/L (12-78); ANION GAP 10 MEQ/L (8-16); AST/SGOT 33 U/L (7-37); BILIRUBIN,TOTAL 0.2 MG/DL (0.2-1.0); BLOOD UREA NITROGEN 15 MG/DL (7-18); CALCIUM LEVEL 8.6 MG/DL (8.8-10.2); CARBON DIOXIDE LEVEL 24 MEQ/L (21-32); CHLORIDE LEVEL 107 MEQ/L (98-107); CREATININE FOR GFR 1.73 MG/DL (0.70-1.30); GLUCOSE, FASTING 193 MG/DL (70-100); LDH LACTATE DEHYDROGENASE 234 U/L (87-241); MAGNESIUM LEVEL 1.5 MG/DL (1.8-2.4); POTASSIUM SERUM 4.6 MEQ/L (3.5-5.1); SODIUM LEVEL 141 MEQ/L (136-145); TOTAL PROTEIN 6.6 GM/DL (6.4-8.2)
[2018-04-06 15:16] LABS: EOS % 20.4 % (0.0-3.0); POSITIVE DIFF POS FLAG
[2018-04-11 17:28] LABS: FK 506 (TACROLIMUS) LABCORP 13.1 ng/mL (2.0-20.0)
== END ==
LOC: M LAB REF 13:22
DX: C83.10 Mantle cell lymphoma, unspecified site (principal); Z94.81 Bone marrow transplant status
CPT/HCPCS: 83615

== ENCOUNTER → 2018-04-13 | Outpatient (REF) | payer MEDICARE, OTHER ==
[2018-04-13 14:08] LABS: BASO # 0.1 10^3/uL (0.0-0.2); BASO % 0.8 % (0.0-1.0); EOS # 1.2 10^3/uL (0.0-0.50); EOS % 18.8 % (0.0-3.0); HEMATOCRIT 34.2 % (42.0-52.0); HEMOGLOBIN 11.7 g/dl (13.5-17.5); IMMATURE GRANULOCYTE % 0.2 % (0-3.0); LYMPH % 15.8 % (24.0-44.0); MEAN CORPUSCULAR HEMOGLOBIN 31.5 pg (27.0-33.0); MEAN CORPUSCULAR HGB CONC 34.2 g/dl (32.0-36.5); MEAN CORPUSCULAR VOLUME 92.2 fl (80.0-96.0); MONO # 0.6 10^3/uL (0.0-0.8); MONO % 8.7 % (0.0-5.0); NEUTROPHILS # 3.6 10^3/uL (1.8-7.7); NEUTROPHILS % 55.7 % (36.0-66.0); PLATELET COUNT, AUTOMATED 254 10^3/uL (150-450); RED BLOOD COUNT 3.71 10^6/uL (4.30-6.10); RED CELL DISTRIBUTION WIDTH 13.3 % (11.5-14.5); WHITE BLOOD COUNT 6.5 10^3/uL (4.0-10.0)
[2018-04-13 14:22] LABS: ALBUMIN 3.8 GM/DL (3.2-5.2); ALBUMIN/GLOBULIN RATIO 1.41 (1.00-1.93); ALKALINE PHOSPHATASE 122 U/L (45-117); ALT/SGPT 62 U/L (12-78); ANION GAP 7 MEQ/L (8-16); AST/SGOT 30 U/L (7-37); BILIRUBIN,TOTAL 0.3 MG/DL (0.2-1.0); BLOOD UREA NITROGEN 16 MG/DL (7-18); CALCIUM LEVEL 8.7 MG/DL (8.8-10.2); CARBON DIOXIDE LEVEL 27 MEQ/L (21-32); CHLORIDE LEVEL 107 MEQ/L (98-107); CREATININE FOR GFR 1.75 MG/DL (0.70-1.30); GLOMERULAR FILTRATION RATE 42.4 (>49); GLUCOSE, FASTING 140 MG/DL (70-100); LDH LACTATE DEHYDROGENASE 228 U/L (87-241); MAGNESIUM LEVEL 1.6 MG/DL (1.8-2.4); POTASSIUM SERUM 4.6 MEQ/L (3.5-5.1); SODIUM LEVEL 141 MEQ/L (136-145); TOTAL PROTEIN 6.5 GM/DL (6.4-8.2)
[2018-04-16 10:08] LABS: FK 506 (TACROLIMUS) LABCORP 7.5 ng/mL (2.0-20.0)
== END ==
LOC: M LAB REF 13:16
DX: C83.10 Mantle cell lymphoma, unspecified site (principal); Z94.81 Bone marrow transplant status
CPT/HCPCS: 83615

== ENCOUNTER → 2018-04-20 | Outpatient (REF) | payer MEDICARE, OTHER ==
[2018-04-20 13:47] LABS: BASO # 0.1 10^3/uL (0.0-0.2); BASO % 1.2 % (0.0-1.0); EOS # 0.4 10^3/uL (0.0-0.50); EOS % 8.4 % (0.0-3.0); HEMATOCRIT 34.9 % (42.0-52.0); IMMATURE GRANULOCYTE % 0.6 % (0-3.0); LYMPH % 20.3 % (24.0-44.0); MEAN CORPUSCULAR HEMOGLOBIN 32.4 pg (27.0-33.0); MEAN CORPUSCULAR HGB CONC 34.4 g/dl (32.0-36.5); MEAN CORPUSCULAR VOLUME 94.3 fl (80.0-96.0); MONO # 0.5 10^3/uL (0.0-0.8); MONO % 10.5 % (0.0-5.0); PLATELET COUNT, AUTOMATED 243 10^3/uL (150-450); RED CELL DISTRIBUTION WIDTH 13.6 % (11.5-14.5); WHITE BLOOD COUNT 5.1 10^3/uL (4.0-10.0)
[2018-04-20 14:21] LABS: ALBUMIN 3.9 GM/DL (3.2-5.2); ALBUMIN/GLOBULIN RATIO 1.39 (1.00-1.93); ALKALINE PHOSPHATASE 102 U/L (45-117); ALT/SGPT 57 U/L (12-78); ANION GAP 7 MEQ/L (8-16); AST/SGOT 30 U/L (7-37); BILIRUBIN,TOTAL 0.3 MG/DL (0.2-1.0); BLOOD UREA NITROGEN 16 MG/DL (7-18); CARBON DIOXIDE LEVEL 27 MEQ/L (21-32); CHLORIDE LEVEL 107 MEQ/L (98-107); GLOMERULAR FILTRATION RATE 50.7 (>49); GLUCOSE, FASTING 127 MG/DL (70-100); LDH LACTATE DEHYDROGENASE 200 U/L (87-241); MAGNESIUM LEVEL 1.5 MG/DL (1.8-2.4); POTASSIUM SERUM 4.7 MEQ/L (3.5-5.1); SODIUM LEVEL 141 MEQ/L (136-145); TOTAL PROTEIN 6.7 GM/DL (6.4-8.2)
[2018-04-24 10:21] LABS: FK 506 (TACROLIMUS) LABCORP 8.8 ng/mL (2.0-20.0)
== END ==
LOC: M LAB REF 13:09
DX: C83.10 Mantle cell lymphoma, unspecified site (principal)
CPT/HCPCS: 83615

== ENCOUNTER → 2018-04-27 | Outpatient (REF) | payer MEDICARE, OTHER ==
[2018-04-27 13:59] LABS: BASO # 0.1 10^3/uL (0.0-0.2); BASO % 1.4 % (0.0-1.0); EOS # 0.6 10^3/uL (0.0-0.50); EOS % 10.5 % (0.0-3.0); HEMATOCRIT 35.9 % (42.0-52.0); HEMOGLOBIN 12.5 g/dl (13.5-17.5); IMMATURE GRANULOCYTE % 2.2 % (0-3.0); LYMPH # 1.1 10^3/uL (1.5-4.5); LYMPH % 20.2 % (24.0-44.0); MEAN CORPUSCULAR HEMOGLOBIN 32.2 pg (27.0-33.0); MEAN CORPUSCULAR HGB CONC 34.8 g/dl (32.0-36.5); MEAN CORPUSCULAR VOLUME 92.5 fl (80.0-96.0); MONO # 0.6 10^3/uL (0.0-0.8); MONO % 10.6 % (0.0-5.0); NEUTROPHILS # 3.1 10^3/uL (1.8-7.7); NEUTROPHILS % 55.1 % (36.0-66.0); PLATELET COUNT, AUTOMATED 293 10^3/uL (150-450); RED BLOOD COUNT 3.88 10^6/uL (4.30-6.10); RED CELL DISTRIBUTION WIDTH 13.5 % (11.5-14.5); WHITE BLOOD COUNT 5.6 10^3/uL (4.0-10.0)
[2018-04-27 14:12] LABS: ANION GAP 7 MEQ/L (8-16); BLOOD UREA NITROGEN 21 MG/DL (7-18); CARBON DIOXIDE LEVEL 26 MEQ/L (21-32); CHLORIDE LEVEL 109 MEQ/L (98-107); CREATININE FOR GFR 1.63 MG/DL (0.70-1.30); GLUCOSE, FASTING 128 MG/DL (70-100); POTASSIUM SERUM 4.5 MEQ/L (3.5-5.1); SODIUM LEVEL 142 MEQ/L (136-145)
[2018-04-27 14:13] LABS: ALBUMIN 3.8 GM/DL (3.2-5.2); ALBUMIN/GLOBULIN RATIO 1.36 (1.00-1.93); ALKALINE PHOSPHATASE 105 U/L (45-117); ALT/SGPT 58 U/L (12-78); AST/SGOT 27 U/L (7-37); BILIRUBIN,TOTAL 0.3 MG/DL (0.2-1.0); CALCIUM LEVEL 9.1 MG/DL (8.8-10.2); LDH LACTATE DEHYDROGENASE 177 U/L (87-241); MAGNESIUM LEVEL 1.7 MG/DL (1.8-2.4); TOTAL PROTEIN 6.6 GM/DL (6.4-8.2)
[2018-05-01 00:06] LABS: FK 506 (TACROLIMUS) LABCORP 8.4 ng/mL (2.0-20.0)
== END ==
LOC: M LAB REF 13:43
DX: Z94.81 Bone marrow transplant status (principal)
CPT/HCPCS: 83615

== ENCOUNTER → 2018-05-04 | Outpatient (REF) | payer MEDICARE, OTHER ==
[2018-05-04 13:33] LABS: BASO # 0.1 10^3/uL (0.0-0.2); BASO % 1.1 % (0.0-1.0); EOS # 0.4 10^3/uL (0.0-0.50); EOS % 7.9 % (0.0-3.0); HEMOGLOBIN 12.8 g/dl (13.5-17.5); IMMATURE GRANULOCYTE % 0.9 % (0-3.0); LYMPH % 22.4 % (24.0-44.0); MEAN CORPUSCULAR HEMOGLOBIN 31.8 pg (27.0-33.0); MEAN CORPUSCULAR HGB CONC 34.6 g/dl (32.0-36.5); MONO # 0.6 10^3/uL (0.0-0.8); MONO % 13.8 % (0.0-5.0); NEUTROPHILS # 2.5 10^3/uL (1.8-7.7); NEUTROPHILS % 53.9 % (36.0-66.0); PLATELET COUNT, AUTOMATED 268 10^3/uL (150-450); RED BLOOD COUNT 4.02 10^6/uL (4.30-6.10); RED CELL DISTRIBUTION WIDTH 13.2 % (11.5-14.5); WHITE BLOOD COUNT 4.6 10^3/uL (4.0-10.0)
[2018-05-04 14:00] LABS: ALBUMIN/GLOBULIN RATIO 1.38 (1.00-1.93); ALKALINE PHOSPHATASE 108 U/L (45-117); ALT/SGPT 54 U/L (12-78); ANION GAP 8 MEQ/L (8-16); AST/SGOT 24 U/L (7-37); BILIRUBIN,TOTAL 0.3 MG/DL (0.2-1.0); BLOOD UREA NITROGEN 23 MG/DL (7-18); CALCIUM LEVEL 9.2 MG/DL (8.8-10.2); CARBON DIOXIDE LEVEL 26 MEQ/L (21-32); CHLORIDE LEVEL 106 MEQ/L (98-107); CREATININE FOR GFR 1.95 MG/DL (0.70-1.30); GLOMERULAR FILTRATION RATE 37.4 (>49); GLUCOSE, FASTING 204 MG/DL (70-100); LDH LACTATE DEHYDROGENASE 174 U/L (87-241); MAGNESIUM LEVEL 1.7 MG/DL (1.8-2.4); POTASSIUM SERUM 4.6 MEQ/L (3.5-5.1); SODIUM LEVEL 140 MEQ/L (136-145); TOTAL PROTEIN 6.9 GM/DL (6.4-8.2)
[2018-05-08 08:19] LABS: FK 506 (TACROLIMUS) LABCORP 7.4 ng/mL (2.0-20.0)
== END ==
LOC: M LAB REF 13:24
DX: Z94.81 Bone marrow transplant status (principal)
CPT/HCPCS: 83615

== ENCOUNTER → 2018-05-17 | Outpatient (REF) | payer MEDICARE, OTHER ==
[2018-05-17 14:19] LABS: EOS # 0.3 10^3/uL (0.0-0.50); EOS % 15.4 % (0.0-3.0); HEMOGLOBIN 11.8 g/dl (13.5-17.5); IMMATURE GRANULOCYTE % 0.5 % (0-3.0); LYMPH # 0.7 10^3/uL (1.5-4.5); LYMPH % 35.4 % (24.0-44.0); MEAN CORPUSCULAR HEMOGLOBIN 31.9 pg (27.0-33.0); MEAN CORPUSCULAR HGB CONC 34.7 g/dl (32.0-36.5); MEAN CORPUSCULAR VOLUME 91.9 fl (80.0-96.0); MONO # 0.4 10^3/uL (0.0-0.8); NEUTROPHILS % 27.7 % (36.0-66.0); PLATELET COUNT, AUTOMATED 208 10^3/uL (150-450)
[2018-05-17 14:30] LABS: NEUTROPHILS # 0.5 10^3/uL (1.8-7.7)
[2018-05-17 14:31] LABS: POS COUNT POS FLAG; POSITIVE DIFF POS FLAG
[2018-05-17 14:39] LABS: ALBUMIN 3.4 GM/DL (3.2-5.2); ALBUMIN/GLOBULIN RATIO 1.36 (1.00-1.93); ALKALINE PHOSPHATASE 75 U/L (45-117); ALT/SGPT 35 U/L (12-78); ANION GAP 6 MEQ/L (8-16); AST/SGOT 21 U/L (7-37); BILIRUBIN,TOTAL 0.4 MG/DL (0.2-1.0); BLOOD UREA NITROGEN 16 MG/DL (7-18); CALCIUM LEVEL 8.5 MG/DL (8.8-10.2); CARBON DIOXIDE LEVEL 29 MEQ/L (21-32); CHLORIDE LEVEL 107 MEQ/L (98-107); CREATININE FOR GFR 1.47 MG/DL (0.70-1.30); GLOMERULAR FILTRATION RATE 51.8 (>49); GLUCOSE, FASTING 166 MG/DL (70-100); LDH LACTATE DEHYDROGENASE 174 U/L (87-241); MAGNESIUM LEVEL 1.3 MG/DL (1.8-2.4); POTASSIUM SERUM 4.1 MEQ/L (3.5-5.1); SODIUM LEVEL 142 MEQ/L (136-145); TOTAL PROTEIN 5.9 GM/DL (6.4-8.2)
[2018-05-19 11:31] LABS: FK 506 (TACROLIMUS) LABCORP 5.1 ng/mL (2.0-20.0)
== END ==
LOC: M LAB REF 13:20
DX: Z94.81 Bone marrow transplant status (principal); C83.10 Mantle cell lymphoma, unspecified site
CPT/HCPCS: 83615

== ENCOUNTER → 2018-06-01 | Outpatient (REF) | payer MEDICARE, OTHER ==
[2018-06-01 13:52] LABS: BASO % 1.8 % (0.0-1.0); EOS # 0.4 10^3/uL (0.0-0.50); EOS % 17.2 % (0.0-3.0); HEMATOCRIT 35.7 % (42.0-52.0); HEMOGLOBIN 12.3 g/dl (13.5-17.5); IMMATURE GRANULOCYTE % 0.5 % (0-3.0); LYMPH # 0.8 10^3/uL (1.5-4.5); LYMPH % 33.9 % (24.0-44.0); MEAN CORPUSCULAR HEMOGLOBIN 31.2 pg (27.0-33.0); MEAN CORPUSCULAR HGB CONC 34.5 g/dl (32.0-36.5); MEAN CORPUSCULAR VOLUME 90.6 fl (80.0-96.0); MONO # 0.4 10^3/uL (0.0-0.8); MONO % 17.6 % (0.0-5.0); PLATELET COUNT, AUTOMATED 218 10^3/uL (150-450); RED BLOOD COUNT 3.94 10^6/uL (4.30-6.10); RED CELL DISTRIBUTION WIDTH 12.8 % (11.5-14.5); WHITE BLOOD COUNT 2.2 10^3/uL (4.0-10.0)
[2018-06-01 14:30] LABS: ALBUMIN 3.5 GM/DL (3.2-5.2); ALBUMIN/GLOBULIN RATIO 1.25 (1.00-1.93); ALKALINE PHOSPHATASE 98 U/L (45-117); ALT/SGPT 27 U/L (12-78); ANION GAP 8 MEQ/L (8-16); AST/SGOT 15 U/L (7-37); BILIRUBIN,TOTAL 0.4 MG/DL (0.2-1.0); BLOOD UREA NITROGEN 14 MG/DL (7-18); CALCIUM LEVEL 8.4 MG/DL (8.8-10.2); CARBON DIOXIDE LEVEL 26 MEQ/L (21-32); CHLORIDE LEVEL 109 MEQ/L (98-107); CREATININE FOR GFR 1.16 MG/DL (0.70-1.30); GLOMERULAR FILTRATION RATE > 60.0 (>49); GLUCOSE, FASTING 165 MG/DL (70-100); LDH LACTATE DEHYDROGENASE 176 U/L (87-241); MAGNESIUM LEVEL 1.5 MG/DL (1.8-2.4); POTASSIUM SERUM 4.4 MEQ/L (3.5-5.1); SODIUM LEVEL 143 MEQ/L (136-145); TOTAL PROTEIN 6.3 GM/DL (6.4-8.2)
[2018-06-01 14:36] LABS: NEUTROPHILS # 0.6 10^3/uL (1.8-7.7); POSITIVE DIFF POS FLAG
[2018-06-05 00:07] LABS: FK 506 (TACROLIMUS) LABCORP 7.4 ng/mL (2.0-20.0)
== END ==
LOC: M LAB REF 13:25
DX: C83.10 Mantle cell lymphoma, unspecified site (principal); Z94.81 Bone marrow transplant status
CPT/HCPCS: 83615

== ENCOUNTER → 2018-06-08 | Outpatient (REF) | payer MEDICARE, OTHER ==
[2018-06-08 13:41] LABS: HEMATOCRIT 33.9 % (42.0-52.0); HEMOGLOBIN 11.9 g/dl (13.5-17.5); MEAN CORPUSCULAR HEMOGLOBIN 31.2 pg (27.0-33.0); MEAN CORPUSCULAR HGB CONC 35.1 g/dl (32.0-36.5); MEAN CORPUSCULAR VOLUME 88.7 fl (80.0-96.0); PLATELET COUNT, AUTOMATED 214 10^3/uL (150-450); RED BLOOD COUNT 3.82 10^6/uL (4.30-6.10); RED CELL DISTRIBUTION WIDTH 12.8 % (11.5-14.5); WHITE BLOOD COUNT 2.4 10^3/uL (4.0-10.0)
[2018-06-08 13:49] LABS: POSITIVE DIFF POS FLAG
[2018-06-08 13:50] LABS: ADD MANUAL DIFFER YES; DIFF SLIDE NUMBER 265
[2018-06-08 14:10] LABS: ALBUMIN 3.7 GM/DL (3.2-5.2); ALBUMIN/GLOBULIN RATIO 1.61 (1.00-1.93); ALKALINE PHOSPHATASE 97 U/L (45-117); ALT/SGPT 35 U/L (12-78); ANION GAP 8 MEQ/L (8-16); AST/SGOT 21 U/L (7-37); BILIRUBIN,TOTAL 0.5 MG/DL (0.2-1.0); BLOOD UREA NITROGEN 9 MG/DL (7-18); CALCIUM LEVEL 8.6 MG/DL (8.8-10.2); CARBON DIOXIDE LEVEL 25 MEQ/L (21-32); CHLORIDE LEVEL 109 MEQ/L (98-107); CREATININE FOR GFR 1.18 MG/DL (0.70-1.30); GLOMERULAR FILTRATION RATE > 60.0 (>49); GLUCOSE, FASTING 167 MG/DL (70-100); LDH LACTATE DEHYDROGENASE 163 U/L (87-241); MAGNESIUM LEVEL 1.4 MG/DL (1.8-2.4); SODIUM LEVEL 142 MEQ/L (136-145)
[2018-06-08 14:31] LABS: ATYPICAL LYMPH 19 % (0-5); BASOPHILS 1 % (0-4); EOSINOPHILS 25 % (0-5); LYMPHOCYTES 16 % (16-52); MONOCYTES 39 % (0-8); PLATELET ESTIMATE NORMAL (NORMAL)
[2018-06-08 14:32] LABS: TOXIC VACUOLATION 1+
[2018-06-12 08:06] LABS: FK 506 (TACROLIMUS) LABCORP 6.9 ng/mL (2.0-20.0)
== END ==
LOC: M LAB REF 13:23
DX: C83.10 Mantle cell lymphoma, unspecified site (principal); Z94.81 Bone marrow transplant status
CPT/HCPCS: 83615

== ENCOUNTER → 2018-06-15 | Outpatient (REF) | payer MEDICARE, OTHER ==
[2018-06-15 14:11] LABS: BASO # 0.1 10^3/uL (0.0-0.2); BASO % 1.9 % (0.0-1.0); EOS # 0.4 10^3/uL (0.0-0.50); EOS % 10.1 % (0.0-3.0); HEMATOCRIT 35.9 % (42.0-52.0); HEMOGLOBIN 12.2 g/dl (13.5-17.5); IMMATURE GRANULOCYTE % 0.9 % (0-3.0); LYMPH % 23.8 % (24.0-44.0); MEAN CORPUSCULAR HEMOGLOBIN 30.7 pg (27.0-33.0); MEAN CORPUSCULAR VOLUME 90.2 fl (80.0-96.0); MONO # 0.4 10^3/uL (0.0-0.8); MONO % 8.9 % (0.0-5.0); NEUTROPHILS # 2.3 10^3/uL (1.8-7.7); NEUTROPHILS % 54.4 % (36.0-66.0); PLATELET COUNT, AUTOMATED 211 10^3/uL (150-450); RED BLOOD COUNT 3.98 10^6/uL (4.30-6.10); RED CELL DISTRIBUTION WIDTH 13.1 % (11.5-14.5); WHITE BLOOD COUNT 4.3 10^3/uL (4.0-10.0)
[2018-06-15 14:27] LABS: LDH LACTATE DEHYDROGENASE 190 U/L (87-241)
[2018-06-15 14:27] LABS: MAGNESIUM LEVEL 1.7 MG/DL (1.8-2.4)
[2018-06-18 14:36] LABS: FK 506 (TACROLIMUS) LABCORP 5.8 ng/mL (2.0-20.0)
== END ==
LOC: M LAB REF 13:35
DX: Z94.81 Bone marrow transplant status (principal)
CPT/HCPCS: 83615

== ENCOUNTER → 2018-06-22 | Outpatient (REF) | payer MEDICARE, OTHER ==
[2018-06-22 12:27] LABS: BASO # 0.1 10^3/uL (0.0-0.2); BASO % 1.7 % (0.0-1.0); EOS # 0.3 10^3/uL (0.0-0.50); EOS % 6.1 % (0.0-3.0); HEMATOCRIT 35.9 % (42.0-52.0); HEMOGLOBIN 12.5 g/dl (13.5-17.5); IMMATURE GRANULOCYTE % 0.2 % (0-3.0); LYMPH # 1.1 10^3/uL (1.5-4.5); LYMPH % 21.5 % (24.0-44.0); MEAN CORPUSCULAR HEMOGLOBIN 30.6 pg (27.0-33.0); MEAN CORPUSCULAR HGB CONC 34.8 g/dl (32.0-36.5); MONO # 0.4 10^3/uL (0.0-0.8); NEUTROPHILS # 3.3 10^3/uL (1.8-7.7); NEUTROPHILS % 62.5 % (36.0-66.0); PLATELET COUNT, AUTOMATED 236 10^3/uL (150-450); RED BLOOD COUNT 4.08 10^6/uL (4.30-6.10); RED CELL DISTRIBUTION WIDTH 13.2 % (11.5-14.5); WHITE BLOOD COUNT 5.2 10^3/uL (4.0-10.0)
[2018-06-22 13:21] LABS: ALBUMIN 3.9 GM/DL (3.2-5.2); ALBUMIN/GLOBULIN RATIO 1.77 (1.00-1.93); ALKALINE PHOSPHATASE 84 U/L (45-117); ALT/SGPT 29 U/L (12-78); ANION GAP 10 MEQ/L (8-16); AST/SGOT 16 U/L (7-37); BILIRUBIN,TOTAL 0.4 MG/DL (0.2-1.0); BLOOD UREA NITROGEN 14 MG/DL (7-18); CALCIUM LEVEL 8.9 MG/DL (8.8-10.2); CARBON DIOXIDE LEVEL 24 MEQ/L (21-32); CHLORIDE LEVEL 108 MEQ/L (98-107); CREATININE FOR GFR 1.12 MG/DL (0.70-1.30); GLOMERULAR FILTRATION RATE > 60.0 (>49); GLUCOSE, FASTING 133 MG/DL (70-100); LDH LACTATE DEHYDROGENASE 170 U/L (87-241); POTASSIUM SERUM 4.4 MEQ/L (3.5-5.1); SODIUM LEVEL 142 MEQ/L (136-145); TOTAL PROTEIN 6.1 GM/DL (6.4-8.2)
[2018-06-25 14:16] LABS: FK 506 (TACROLIMUS) LABCORP 6.2 ng/mL (2.0-20.0)
== END ==
LOC: M LAB REF 12:11
DX: Z94.81 Bone marrow transplant status (principal); C83.10 Mantle cell lymphoma, unspecified site
CPT/HCPCS: 83615

== ENCOUNTER → 2018-06-29 | Outpatient (REF) | payer MEDICARE, OTHER ==
[2018-06-29 12:43] LABS: BASO # 0.1 10^3/uL (0.0-0.2); BASO % 0.9 % (0.0-1.0); EOS # 0.5 10^3/uL (0.0-0.50); EOS % 8.5 % (0.0-3.0); HEMATOCRIT 37.1 % (42.0-52.0); HEMOGLOBIN 12.6 g/dl (13.5-17.5); IMMATURE GRANULOCYTE % 0.3 % (0-3.0); LYMPH # 1.2 10^3/uL (1.5-4.5); LYMPH % 21.5 % (24.0-44.0); MEAN CORPUSCULAR HEMOGLOBIN 30.5 pg (27.0-33.0); MEAN CORPUSCULAR VOLUME 89.8 fl (80.0-96.0); MONO # 0.5 10^3/uL (0.0-0.8); MONO % 8.7 % (0.0-5.0); NEUTROPHILS # 3.5 10^3/uL (1.8-7.7); NEUTROPHILS % 60.1 % (36.0-66.0); PLATELET COUNT, AUTOMATED 234 10^3/uL (150-450); RED BLOOD COUNT 4.13 10^6/uL (4.30-6.10); RED CELL DISTRIBUTION WIDTH 13.2 % (11.5-14.5); WHITE BLOOD COUNT 5.8 10^3/uL (4.0-10.0)
[2018-06-29 13:19] LABS: ALBUMIN 3.8 GM/DL (3.2-5.2); ALBUMIN/GLOBULIN RATIO 1.46 (1.00-1.93); ALKALINE PHOSPHATASE 102 U/L (45-117); ALT/SGPT 63 U/L (12-78); ANION GAP 10 MEQ/L (8-16); AST/SGOT 37 U/L (7-37); BILIRUBIN,TOTAL 0.4 MG/DL (0.2-1.0); BLOOD UREA NITROGEN 17 MG/DL (7-18); CALCIUM LEVEL 8.4 MG/DL (8.8-10.2); CARBON DIOXIDE LEVEL 27 MEQ/L (21-32); CHLORIDE LEVEL 107 MEQ/L (98-107); CREATININE FOR GFR 1.25 MG/DL (0.70-1.30); GLOMERULAR FILTRATION RATE > 60.0 (>49); GLUCOSE, FASTING 130 MG/DL (70-100); LDH LACTATE DEHYDROGENASE 170 U/L (87-241); POTASSIUM SERUM 4.5 MEQ/L (3.5-5.1); SODIUM LEVEL 144 MEQ/L (136-145); TOTAL PROTEIN 6.4 GM/DL (6.4-8.2)
[2018-07-02 00:09] LABS: FK 506 (TACROLIMUS) LABCORP 6.4 ng/mL (2.0-20.0)
== END ==
LOC: M LAB REF 11:42
DX: Z94.81 Bone marrow transplant status (principal)
CPT/HCPCS: 83615

== ENCOUNTER → 2018-07-06 | Outpatient (REF) | payer MEDICARE, OTHER ==
[2018-07-06 12:19] LABS: BASO # 0.1 10^3/uL (0.0-0.2); BASO % 0.9 % (0.0-1.0); EOS # 0.4 10^3/uL (0.0-0.50); EOS % 6.1 % (0.0-3.0); HEMATOCRIT 35.9 % (42.0-52.0); HEMOGLOBIN 12.6 g/dl (13.5-17.5); IMMATURE GRANULOCYTE % 0.7 % (0-3.0); LYMPH # 1.1 10^3/uL (1.5-4.5); LYMPH % 18.5 % (24.0-44.0); MEAN CORPUSCULAR HEMOGLOBIN 30.8 pg (27.0-33.0); MEAN CORPUSCULAR HGB CONC 35.1 g/dl (32.0-36.5); MEAN CORPUSCULAR VOLUME 87.8 fl (80.0-96.0); MONO # 0.4 10^3/uL (0.0-0.8); MONO % 7.7 % (0.0-5.0); NEUTROPHILS # 3.8 10^3/uL (1.8-7.7); NEUTROPHILS % 66.1 % (36.0-66.0); PLATELET COUNT, AUTOMATED 236 10^3/uL (150-450); RED BLOOD COUNT 4.09 10^6/uL (4.30-6.10); RED CELL DISTRIBUTION WIDTH 13.2 % (11.5-14.5); WHITE BLOOD COUNT 5.7 10^3/uL (4.0-10.0)
[2018-07-06 12:49] LABS: ALBUMIN 3.8 GM/DL (3.2-5.2); ALBUMIN/GLOBULIN RATIO 1.65 (1.00-1.93); ALKALINE PHOSPHATASE 86 U/L (45-117); ALT/SGPT 32 U/L (12-78); ANION GAP 9 MEQ/L (8-16); AST/SGOT 15 U/L (7-37); BILIRUBIN,TOTAL 0.3 MG/DL (0.2-1.0); BLOOD UREA NITROGEN 18 MG/DL (7-18); CALCIUM LEVEL 8.8 MG/DL (8.8-10.2); CARBON DIOXIDE LEVEL 27 MEQ/L (21-32); CHLORIDE LEVEL 108 MEQ/L (98-107); CREATININE FOR GFR 1.17 MG/DL (0.70-1.30); GLOMERULAR FILTRATION RATE > 60.0 (>49); GLUCOSE, FASTING 127 MG/DL (70-100); LDH LACTATE DEHYDROGENASE 161 U/L (87-241); MAGNESIUM LEVEL 1.7 MG/DL (1.8-2.4); POTASSIUM SERUM 4.5 MEQ/L (3.5-5.1); SODIUM LEVEL 144 MEQ/L (136-145); TOTAL PROTEIN 6.1 GM/DL (6.4-8.2)
[2018-07-09 10:07] LABS: FK 506 (TACROLIMUS) LABCORP 5.9 ng/mL (2.0-20.0)
== END ==
LOC: M LAB REF 11:32
DX: Z94.81 Bone marrow transplant status (principal); C83.10 Mantle cell lymphoma, unspecified site
CPT/HCPCS: 83615

== ENCOUNTER → 2018-07-13 | Outpatient (REF) | payer MEDICARE, OTHER ==
[2018-07-13 11:54] LABS: BASO % 0.5 % (0.0-1.0); EOS # 0.4 10^3/uL (0.0-0.50); EOS % 6.5 % (0.0-3.0); HEMATOCRIT 36.6 % (42.0-52.0); HEMOGLOBIN 12.8 g/dl (13.5-17.5); IMMATURE GRANULOCYTE % 1.6 % (0-3.0); LYMPH # 1.1 10^3/uL (1.5-4.5); LYMPH % 17.5 % (24.0-44.0); MEAN CORPUSCULAR HEMOGLOBIN 30.9 pg (27.0-33.0); MEAN CORPUSCULAR VOLUME 88.4 fl (80.0-96.0); MONO # 0.5 10^3/uL (0.0-0.8); MONO % 7.3 % (0.0-5.0); NEUTROPHILS # 4.1 10^3/uL (1.8-7.7); NEUTROPHILS % 66.6 % (36.0-66.0); PLATELET COUNT, AUTOMATED 204 10^3/uL (150-450); RED BLOOD COUNT 4.14 10^6/uL (4.30-6.10); WHITE BLOOD COUNT 6.2 10^3/uL (4.0-10.0)
[2018-07-13 12:29] LABS: ALBUMIN 3.7 GM/DL (3.2-5.2); ALBUMIN/GLOBULIN RATIO 1.61 (1.00-1.93); ALKALINE PHOSPHATASE 95 U/L (45-117); ALT/SGPT 28 U/L (12-78); ANION GAP 6 MEQ/L (8-16); AST/SGOT 18 U/L (7-37); BILIRUBIN,TOTAL 0.4 MG/DL (0.2-1.0); BLOOD UREA NITROGEN 15 MG/DL (7-18); CALCIUM LEVEL 8.6 MG/DL (8.8-10.2); CARBON DIOXIDE LEVEL 28 MEQ/L (21-32); CHLORIDE LEVEL 108 MEQ/L (98-107); CREATININE FOR GFR 1.15 MG/DL (0.70-1.30); GLOMERULAR FILTRATION RATE > 60.0 (>49); GLUCOSE, FASTING 130 MG/DL (70-100); LDH LACTATE DEHYDROGENASE 182 U/L (87-241); MAGNESIUM LEVEL 1.5 MG/DL (1.8-2.4); POTASSIUM SERUM 4.8 MEQ/L (3.5-5.1); SODIUM LEVEL 142 MEQ/L (136-145)
[2018-07-16 14:11] LABS: FK 506 (TACROLIMUS) LABCORP 6.1 ng/mL (2.0-20.0)
== END ==
LOC: M LAB REF 11:29
DX: Z94.81 Bone marrow transplant status (principal); C83.10 Mantle cell lymphoma, unspecified site
CPT/HCPCS: 83615

== ENCOUNTER → 2018-07-20 | Outpatient (REF) | payer MEDICARE, OTHER ==
[2018-07-20 11:50] LABS: HEMATOCRIT 37.2 % (42.0-52.0); HEMOGLOBIN 12.7 g/dl (13.5-17.5); MEAN CORPUSCULAR HEMOGLOBIN 30.3 pg (27.0-33.0); MEAN CORPUSCULAR HGB CONC 34.1 g/dl (32.0-36.5); MEAN CORPUSCULAR VOLUME 88.8 fl (80.0-96.0); PLATELET COUNT, AUTOMATED 220 10^3/uL (150-450); RED BLOOD COUNT 4.19 10^6/uL (4.30-6.10); RED CELL DISTRIBUTION WIDTH 12.9 % (11.5-14.5)
[2018-07-20 12:01] LABS: ADD MANUAL DIFFER YES; DIFF SLIDE NUMBER 185; POS COUNT POS FLAG; POSITIVE MORPH POS FLAG
[2018-07-20 12:28] LABS: ATYPICAL LYMPH 4 % (0-5); BASOPHILS 1 % (0-4); EOSINOPHILS 9 % (0-5); LYMPHOCYTES 12 % (16-52); MONOCYTES 6 % (0-8); NEUTROPHILS 68 % (35-75); PLATELET ESTIMATE NORMAL (NORMAL)
[2018-07-20 16:02] LABS: ALBUMIN 3.7 GM/DL (3.2-5.2); ALBUMIN/GLOBULIN RATIO 1.42 (1.00-1.93); ALKALINE PHOSPHATASE 94 U/L (45-117); ALT/SGPT 41 U/L (12-78); ANION GAP 10 MEQ/L (8-16); AST/SGOT 29 U/L (7-37); BILIRUBIN,TOTAL 0.5 MG/DL (0.2-1.0); BLOOD UREA NITROGEN 16 MG/DL (7-18); CALCIUM LEVEL 8.6 MG/DL (8.8-10.2); CARBON DIOXIDE LEVEL 25 MEQ/L (21-32); CHLORIDE LEVEL 108 MEQ/L (98-107); CREATININE FOR GFR 1.18 MG/DL (0.70-1.30); GLOMERULAR FILTRATION RATE > 60.0 (>49); GLUCOSE, FASTING 112 MG/DL (70-100); LDH LACTATE DEHYDROGENASE 219 U/L (87-241); MAGNESIUM LEVEL 1.6 MG/DL (1.8-2.4); POTASSIUM SERUM 4.3 MEQ/L (3.5-5.1); SODIUM LEVEL 143 MEQ/L (136-145); TOTAL PROTEIN 6.3 GM/DL (6.4-8.2)
[2018-07-23 00:14] LABS: FK 506 (TACROLIMUS) LABCORP 4.5 ng/mL (2.0-20.0)
== END ==
LOC: M LAB REF 11:07
DX: C83.10 Mantle cell lymphoma, unspecified site (principal); Z94.81 Bone marrow transplant status
CPT/HCPCS: 83615

== ENCOUNTER → 2018-07-27 | Outpatient (REF) | payer MEDICARE, OTHER ==
[2018-07-27 11:01] LABS: BASO % 0.6 % (0.0-1.0); EOS # 0.2 10^3/uL (0.0-0.50); EOS % 4.9 % (0.0-3.0); HEMATOCRIT 36.4 % (42.0-52.0); HEMOGLOBIN 12.8 g/dl (13.5-17.5); IMMATURE GRANULOCYTE % 3.2 % (0-3.0); LYMPH # 0.9 10^3/uL (1.5-4.5); LYMPH % 19.1 % (24.0-44.0); MEAN CORPUSCULAR HEMOGLOBIN 30.7 pg (27.0-33.0); MEAN CORPUSCULAR HGB CONC 35.2 g/dl (32.0-36.5); MEAN CORPUSCULAR VOLUME 87.3 fl (80.0-96.0); MONO # 0.5 10^3/uL (0.0-0.8); MONO % 10.5 % (0.0-5.0); NEUTROPHILS # 2.9 10^3/uL (1.8-7.7); NEUTROPHILS % 61.7 % (36.0-66.0); PLATELET COUNT, AUTOMATED 214 10^3/uL (150-450); RED BLOOD COUNT 4.17 10^6/uL (4.30-6.10); RED CELL DISTRIBUTION WIDTH 12.8 % (11.5-14.5); WHITE BLOOD COUNT 4.7 10^3/uL (4.0-10.0)
[2018-07-27 11:42] LABS: ALBUMIN 3.8 GM/DL (3.2-5.2); ALBUMIN/GLOBULIN RATIO 1.58 (1.00-1.93); ALKALINE PHOSPHATASE 92 U/L (45-117); ALT/SGPT 31 U/L (12-78); ANION GAP 9 MEQ/L (8-16); AST/SGOT 21 U/L (7-37); BILIRUBIN,TOTAL 0.4 MG/DL (0.2-1.0); BLOOD UREA NITROGEN 15 MG/DL (7-18); CALCIUM LEVEL 8.5 MG/DL (8.8-10.2); CARBON DIOXIDE LEVEL 27 MEQ/L (21-32); CHLORIDE LEVEL 107 MEQ/L (98-107); CREATININE FOR GFR 1.18 MG/DL (0.70-1.30); GLOMERULAR FILTRATION RATE > 60.0 (>49); GLUCOSE, FASTING 126 MG/DL (70-100); MAGNESIUM LEVEL 1.7 MG/DL (1.8-2.4); POTASSIUM SERUM 4.1 MEQ/L (3.5-5.1); SODIUM LEVEL 143 MEQ/L (136-145); TOTAL PROTEIN 6.2 GM/DL (6.4-8.2)
[2018-07-27 11:57] LABS: LDH LACTATE DEHYDROGENASE 234 U/L (87-241)
[2018-07-29 08:06] LABS: FK 506 (TACROLIMUS) LABCORP 3.6 ng/mL (2.0-20.0)
== END ==
LOC: M LAB REF 10:44
DX: C83.10 Mantle cell lymphoma, unspecified site (principal); Z94.81 Bone marrow transplant status
CPT/HCPCS: 83615

== ENCOUNTER → 2018-08-03 | Outpatient (REF) | payer MEDICARE, OTHER ==
[2018-08-03 11:42] LABS: EOS # 0.2 10^3/uL (0.0-0.50); HEMATOCRIT 36.9 % (42.0-52.0); IMMATURE GRANULOCYTE % 1.7 % (0-3.0); LYMPH # 0.8 10^3/uL (1.5-4.5); LYMPH % 19.9 % (24.0-44.0); MEAN CORPUSCULAR HEMOGLOBIN 30.4 pg (27.0-33.0); MEAN CORPUSCULAR HGB CONC 35.2 g/dl (32.0-36.5); MEAN CORPUSCULAR VOLUME 86.2 fl (80.0-96.0); MONO # 0.4 10^3/uL (0.0-0.8); MONO % 10.5 % (0.0-5.0); NEUTROPHILS # 2.6 10^3/uL (1.8-7.7); NEUTROPHILS % 61.9 % (36.0-66.0); PLATELET COUNT, AUTOMATED 219 10^3/uL (150-450); RED BLOOD COUNT 4.28 10^6/uL (4.30-6.10); RED CELL DISTRIBUTION WIDTH 12.7 % (11.5-14.5); WHITE BLOOD COUNT 4.2 10^3/uL (4.0-10.0)
[2018-08-03 12:32] LABS: ALBUMIN 3.9 GM/DL (3.2-5.2); ALBUMIN/GLOBULIN RATIO 1.63 (1.00-1.93); ALKALINE PHOSPHATASE 96 U/L (45-117); ALT/SGPT 35 U/L (12-78); ANION GAP 9 MEQ/L (8-16); AST/SGOT 22 U/L (7-37); BILIRUBIN,TOTAL 0.4 MG/DL (0.2-1.0); BLOOD UREA NITROGEN 16 MG/DL (7-18); CALCIUM LEVEL 8.8 MG/DL (8.8-10.2); CARBON DIOXIDE LEVEL 26 MEQ/L (21-32); CHLORIDE LEVEL 104 MEQ/L (98-107); CREATININE FOR GFR 1.31 MG/DL (0.70-1.30); GLOMERULAR FILTRATION RATE 59.2 (>49); GLUCOSE, FASTING 157 MG/DL (70-100); LDH LACTATE DEHYDROGENASE 287 U/L (87-241); POTASSIUM SERUM 4.2 MEQ/L (3.5-5.1); SODIUM LEVEL 139 MEQ/L (136-145); TOTAL PROTEIN 6.3 GM/DL (6.4-8.2)
[2018-08-05 14:08] LABS: FK 506 (TACROLIMUS) LABCORP 4.7 ng/mL (2.0-20.0)
== END ==
LOC: M LAB REF 11:14
DX: Z94.81 Bone marrow transplant status (principal)
CPT/HCPCS: 83615

== ENCOUNTER → 2018-08-10 | Outpatient (REF) | payer MEDICARE, OTHER ==
[2018-08-10 13:08] LABS: HEMATOCRIT 37.8 % (42.0-52.0); MEAN CORPUSCULAR HGB CONC 34.4 g/dl (32.0-36.5); MEAN CORPUSCULAR VOLUME 87.1 fl (80.0-96.0); PLATELET COUNT, AUTOMATED 221 10^3/uL (150-450); RED BLOOD COUNT 4.34 10^6/uL (4.30-6.10); RED CELL DISTRIBUTION WIDTH 13.1 % (11.5-14.5)
[2018-08-10 13:11] LABS: ADD MANUAL DIFFER YES; DIFF SLIDE NUMBER 216; POS COUNT POS FLAG; POSITIVE MORPH POS FLAG
[2018-08-10 13:34] LABS: ALBUMIN 3.9 GM/DL (3.2-5.2); ALBUMIN/GLOBULIN RATIO 1.63 (1.00-1.93); ALKALINE PHOSPHATASE 87 U/L (45-117); ALT/SGPT 34 U/L (12-78); ANION GAP 7 MEQ/L (8-16); AST/SGOT 21 U/L (7-37); BILIRUBIN,TOTAL 0.4 MG/DL (0.2-1.0); BLOOD UREA NITROGEN 18 MG/DL (7-18); CALCIUM LEVEL 8.6 MG/DL (8.8-10.2); CARBON DIOXIDE LEVEL 26 MEQ/L (21-32); CHLORIDE LEVEL 107 MEQ/L (98-107); CREATININE FOR GFR 1.16 MG/DL (0.70-1.30); GLOMERULAR FILTRATION RATE > 60.0 (>49); GLUCOSE, FASTING 142 MG/DL (70-100); LDH LACTATE DEHYDROGENASE 282 U/L (87-241); MAGNESIUM LEVEL 1.6 MG/DL (1.8-2.4); POTASSIUM SERUM 4.1 MEQ/L (3.5-5.1); SODIUM LEVEL 140 MEQ/L (136-145); TOTAL PROTEIN 6.3 GM/DL (6.4-8.2)
[2018-08-10 13:55] LABS: ATYPICAL LYMPH 9 % (0-5); BANDS 1 % (< 11); BASOPHILS 2 % (0-4); EOSINOPHILS 6 % (0-5); LYMPHOCYTES 11 % (16-52); MONOCYTES 9 % (0-8); NEUTROPHILS 62 % (35-75); NUCLEATED RED BLOOD CELL 5 % (0-0); PLATELET ESTIMATE NORMAL (NORMAL)
[2018-08-13 00:08] LABS: FK 506 (TACROLIMUS) LABCORP 2.3 ng/mL (2.0-20.0)
== END ==
LOC: M LAB REF 12:16
DX: C83.10 Mantle cell lymphoma, unspecified site (principal); Z94.81 Bone marrow transplant status
CPT/HCPCS: 83615

== ENCOUNTER → 2018-08-17 | Outpatient (REF) | payer MEDICARE, OTHER ==
[2018-08-17 11:45] LABS: HEMATOCRIT 38.6 % (42.0-52.0); HEMOGLOBIN 13.4 g/dl (13.5-17.5); MEAN CORPUSCULAR HEMOGLOBIN 30.5 pg (27.0-33.0); MEAN CORPUSCULAR HGB CONC 34.7 g/dl (32.0-36.5); MEAN CORPUSCULAR VOLUME 87.9 fl (80.0-96.0); PLATELET COUNT, AUTOMATED 201 10^3/uL (150-450); RED BLOOD COUNT 4.39 10^6/uL (4.30-6.10); RED CELL DISTRIBUTION WIDTH 13.1 % (11.5-14.5); WHITE BLOOD COUNT 4.3 10^3/uL (4.0-10.0)
[2018-08-17 11:48] LABS: ADD MANUAL DIFFER YES; DIFF SLIDE NUMBER 141; POS COUNT POS FLAG; POSITIVE MORPH POS FLAG
[2018-08-17 13:01] LABS: ATYPICAL LYMPH 2 % (0-5); BANDS 3 % (< 11); EOSINOPHILS 1 % (0-5); LYMPHOCYTES 18 % (16-52); MONOCYTES 6 % (0-8); NEUTROPHILS 70 % (35-75)
[2018-08-17 13:02] LABS: ANISOCYTOSIS 1+; PLATELET ESTIMATE NORMAL (NORMAL)
[2018-08-17 13:45] LABS: ALBUMIN 3.7 GM/DL (3.2-5.2); ALBUMIN/GLOBULIN RATIO 1.48 (1.00-1.93); ALKALINE PHOSPHATASE 87 U/L (45-117); ALT/SGPT 28 U/L (12-78); ANION GAP 7 MEQ/L (8-16); AST/SGOT 16 U/L (7-37); BILIRUBIN,TOTAL 0.5 MG/DL (0.2-1.0); BLOOD UREA NITROGEN 15 MG/DL (7-18); CALCIUM LEVEL 8.3 MG/DL (8.8-10.2); CARBON DIOXIDE LEVEL 27 MEQ/L (21-32); CHLORIDE LEVEL 106 MEQ/L (98-107); CREATININE FOR GFR 1.16 MG/DL (0.70-1.30); GLOMERULAR FILTRATION RATE > 60.0 (>49); GLUCOSE, FASTING 137 MG/DL (70-100); MAGNESIUM LEVEL 1.6 MG/DL (1.8-2.4); SODIUM LEVEL 140 MEQ/L (136-145); TOTAL PROTEIN 6.2 GM/DL (6.4-8.2)
[2018-08-17 14:01] LABS: LDH LACTATE DEHYDROGENASE 210 U/L (87-241)
[2018-08-20 10:08] LABS: FK 506 (TACROLIMUS) LABCORP 2.5 ng/mL (2.0-20.0)
== END ==
LOC: M LAB REF 11:32
DX: Z94.81 Bone marrow transplant status (principal)
CPT/HCPCS: 83615

== ENCOUNTER → 2018-08-24 | Outpatient (REF) | payer MEDICARE, OTHER ==
[2018-08-24 13:32] LABS: ALBUMIN 3.8 GM/DL (3.2-5.2); ALBUMIN/GLOBULIN RATIO 1.58 (1.00-1.93); ALKALINE PHOSPHATASE 86 U/L (45-117); ALT/SGPT 29 U/L (12-78); ANION GAP 7 MEQ/L (8-16); AST/SGOT 19 U/L (7-37); BILIRUBIN,TOTAL 0.5 MG/DL (0.2-1.0); BLOOD UREA NITROGEN 16 MG/DL (7-18); CALCIUM LEVEL 8.4 MG/DL (8.8-10.2); CARBON DIOXIDE LEVEL 28 MEQ/L (21-32); CHLORIDE LEVEL 110 MEQ/L (98-107); CREATININE FOR GFR 1.11 MG/DL (0.70-1.30); GLOMERULAR FILTRATION RATE > 60.0 (>49); GLUCOSE, FASTING 106 MG/DL (70-100); LDH LACTATE DEHYDROGENASE 239 U/L (87-241); POTASSIUM SERUM 4.1 MEQ/L (3.5-5.1); SODIUM LEVEL 145 MEQ/L (136-145); TOTAL PROTEIN 6.2 GM/DL (6.4-8.2)
[2018-08-24 15:22] LABS: BASO % 0.8 % (0.0-1.0); EOS # 0.1 10^3/uL (0.0-0.50); EOS % 3.9 % (0.0-3.0); HEMATOCRIT 36.9 % (42.0-52.0); HEMOGLOBIN 12.8 g/dl (13.5-17.5); IMMATURE GRANULOCYTE % 1.6 % (0-3.0); LYMPH # 1.1 10^3/uL (1.5-4.5); LYMPH % 43.4 % (24.0-44.0); MEAN CORPUSCULAR HEMOGLOBIN 30.3 pg (27.0-33.0); MEAN CORPUSCULAR HGB CONC 34.7 g/dl (32.0-36.5); MEAN CORPUSCULAR VOLUME 87.4 fl (80.0-96.0); MONO # 0.3 10^3/uL (0.0-0.8); MONO % 10.2 % (0.0-5.0); NEUTROPHILS % 40.1 % (36.0-66.0); RED BLOOD COUNT 4.22 10^6/uL (4.30-6.10); WHITE BLOOD COUNT 2.6 10^3/uL (4.0-10.0)
[2018-08-24 16:03] LABS: POS COUNT POS FLAG
[2018-08-27 14:10] LABS: FK 506 (TACROLIMUS) LABCORP 1.9 ng/mL (2.0-20.0)
== END ==
LOC: M LAB REF 12:08
DX: C83.10 Mantle cell lymphoma, unspecified site (principal); Z94.81 Bone marrow transplant status
CPT/HCPCS: 83615

== ENCOUNTER → 2018-09-03 | Outpatient (REF) | payer MEDICARE, OTHER ==
[2018-09-03 12:04] LABS: BASO % 0.6 % (0.0-1.0); EOS # 0.2 10^3/uL (0.0-0.50); EOS % 4.4 % (0.0-3.0); HEMATOCRIT 37.9 % (42.0-52.0); HEMOGLOBIN 13.3 g/dl (13.5-17.5); IMMATURE GRANULOCYTE % 0.3 % (0-3.0); LYMPH % 30.2 % (24.0-44.0); MEAN CORPUSCULAR HEMOGLOBIN 30.4 pg (27.0-33.0); MEAN CORPUSCULAR HGB CONC 35.1 g/dl (32.0-36.5); MEAN CORPUSCULAR VOLUME 86.5 fl (80.0-96.0); MONO # 0.5 10^3/uL (0.0-0.8); MONO % 14.1 % (0.0-5.0); NEUTROPHILS # 1.7 10^3/uL (1.8-7.7); NEUTROPHILS % 50.4 % (36.0-66.0); PLATELET COUNT, AUTOMATED 192 10^3/uL (150-450); RED BLOOD COUNT 4.38 10^6/uL (4.30-6.10); RED CELL DISTRIBUTION WIDTH 13.2 % (11.5-14.5); WHITE BLOOD COUNT 3.4 10^3/uL (4.0-10.0)
[2018-09-03 12:37] LABS: ALBUMIN 3.8 GM/DL (3.2-5.2); ALBUMIN/GLOBULIN RATIO 1.58 (1.00-1.93); ALKALINE PHOSPHATASE 96 U/L (45-117); ALT/SGPT 59 U/L (12-78); ANION GAP 8 MEQ/L (8-16); AST/SGOT 37 U/L (7-37); BILIRUBIN,TOTAL 0.5 MG/DL (0.2-1.0); BLOOD UREA NITROGEN 12 MG/DL (7-18); CALCIUM LEVEL 8.4 MG/DL (8.8-10.2); CARBON DIOXIDE LEVEL 26 MEQ/L (21-32); CHLORIDE LEVEL 106 MEQ/L (98-107); CREATININE FOR GFR 1.11 MG/DL (0.70-1.30); GLOMERULAR FILTRATION RATE > 60.0 (>49); GLUCOSE, FASTING 149 MG/DL (70-100); LDH LACTATE DEHYDROGENASE 239 U/L (87-241); POTASSIUM SERUM 3.9 MEQ/L (3.5-5.1); SODIUM LEVEL 140 MEQ/L (136-145); TOTAL PROTEIN 6.2 GM/DL (6.4-8.2)
[2018-09-07 14:13] LABS: FK 506 (TACROLIMUS) LABCORP 1.3 ng/mL (2.0-20.0)
== END ==
LOC: M LAB REF 11:44
DX: Z94.81 Bone marrow transplant status (principal); C83.10 Mantle cell lymphoma, unspecified site
CPT/HCPCS: 83615

== ENCOUNTER → 2018-09-07 | Outpatient (REF) | payer MEDICARE, OTHER ==
[~2018-09-07] MED LIST changes: -PANT40TA2 PO; +PANT40TA3 PO
[2018-09-07 12:06] LABS: BASO % 0.5 % (0.0-1.0); EOS # 0.3 10^3/uL (0.0-0.50); EOS % 8.4 % (0.0-3.0); HEMATOCRIT 38.3 % (42.0-52.0); HEMOGLOBIN 13.4 g/dl (13.5-17.5); LYMPH # 1.1 10^3/uL (1.5-4.5); LYMPH % 28.9 % (24.0-44.0); MEAN CORPUSCULAR VOLUME 85.7 fl (80.0-96.0); MONO # 0.6 10^3/uL (0.0-0.8); NEUTROPHILS # 1.8 10^3/uL (1.8-7.7); NEUTROPHILS % 45.7 % (36.0-66.0); PLATELET COUNT, AUTOMATED 217 10^3/uL (150-450); RED BLOOD COUNT 4.47 10^6/uL (4.30-6.10); WHITE BLOOD COUNT 3.9 10^3/uL (4.0-10.0)
[2018-09-07 12:57] LABS: ALBUMIN 3.7 GM/DL (3.2-5.2); ALT/SGPT 69 U/L (12-78); BILIRUBIN,TOTAL 0.4 MG/DL (0.2-1.0); BLOOD UREA NITROGEN 9 MG/DL (7-18); CALCIUM LEVEL 8.7 MG/DL (8.8-10.2); CARBON DIOXIDE LEVEL 24 MEQ/L (21-32); CHLORIDE LEVEL 109 MEQ/L (98-107); CREATININE FOR GFR 1.05 MG/DL (0.70-1.30); GLOMERULAR FILTRATION RATE > 60.0 (>49); GLUCOSE, FASTING 139 MG/DL (70-100); LDH LACTATE DEHYDROGENASE 216 U/L (87-241); MAGNESIUM LEVEL 1.8 MG/DL (1.8-2.4); POTASSIUM SERUM 4.2 MEQ/L (3.5-5.1); SODIUM LEVEL 141 MEQ/L (136-145); TOTAL PROTEIN 6.2 GM/DL (6.4-8.2)
== END ==
LOC: M LAB REF 11:09
PROVIDERS: ATTEND Internal Medicine Hematology
DX: Z94.81 Bone marrow transplant status (principal)

== ENCOUNTER → 2018-09-21 | Outpatient (REF) | payer MEDICARE, OTHER ==
[2018-09-21 11:39] LABS: BASO # 0.1 10^3/uL (0.0-0.2); BASO % 0.7 % (0.0-1.0); EOS # 0.8 10^3/uL (0.0-0.50); EOS % 11.5 % (0.0-3.0); HEMATOCRIT 41.7 % (42.0-52.0); HEMOGLOBIN 14.4 g/dl (13.5-17.5); LYMPH # 1.1 10^3/uL (1.5-4.5); LYMPH % 14.8 % (24.0-44.0); MEAN CORPUSCULAR HEMOGLOBIN 29.8 pg (27.0-33.0); MEAN CORPUSCULAR HGB CONC 34.5 g/dl (32.0-36.5); MEAN CORPUSCULAR VOLUME 86.3 fl (80.0-96.0); MONO # 0.7 10^3/uL (0.0-0.8); MONO % 9.4 % (0.0-5.0); NEUTROPHILS # 4.6 10^3/uL (1.8-7.7); NEUTROPHILS % 63.2 % (36.0-66.0); PLATELET COUNT, AUTOMATED 250 10^3/uL (150-450); RED BLOOD COUNT 4.83 10^6/uL (4.30-6.10); WHITE BLOOD COUNT 7.3 10^3/uL (4.0-10.0)
[2018-09-21 12:16] LABS: ALBUMIN 3.5 GM/DL (3.2-5.2); ALT/SGPT 43 U/L (12-78); BILIRUBIN,TOTAL 0.6 MG/DL (0.2-1.0); BLOOD UREA NITROGEN 11 MG/DL (7-18); CALCIUM LEVEL 8.4 MG/DL (8.8-10.2); CARBON DIOXIDE LEVEL 26 MEQ/L (21-32); CHLORIDE LEVEL 108 MEQ/L (98-107); CREATININE FOR GFR 1.17 MG/DL (0.70-1.30); GLOMERULAR FILTRATION RATE > 60.0 (>49); GLUCOSE, FASTING 119 MG/DL (70-100); LDH LACTATE DEHYDROGENASE 199 U/L (87-241); MAGNESIUM LEVEL 1.8 MG/DL (1.8-2.4); POTASSIUM SERUM 3.9 MEQ/L (3.5-5.1); SODIUM LEVEL 142 MEQ/L (136-145); TOTAL PROTEIN 5.8 GM/DL (6.4-8.2)
== END ==
LOC: M LAB REF 11:21
PROVIDERS: ATTEND Internal Medicine Hematology
DX: Z94.81 Bone marrow transplant status (principal)

== ENCOUNTER → 2018-10-05 | Outpatient (REF) | payer MEDICARE, OTHER ==
[2018-10-05 12:14] LABS: BASO # 0.1 10^3/uL (0.0-0.2); BASO % 0.7 % (0.0-1.0); EOS # 1.2 10^3/uL (0.0-0.50); EOS % 17.2 % (0.0-3.0); HEMATOCRIT 39.9 % (42.0-52.0); HEMOGLOBIN 13.5 g/dl (13.5-17.5); LYMPH # 0.8 10^3/uL (1.5-4.5); LYMPH % 11.5 % (24.0-44.0); MEAN CORPUSCULAR HEMOGLOBIN 29.8 pg (27.0-33.0); MEAN CORPUSCULAR HGB CONC 33.8 g/dl (32.0-36.5); MEAN CORPUSCULAR VOLUME 88.1 fl (80.0-96.0); MONO # 0.5 10^3/uL (0.0-0.8); MONO % 7.2 % (0.0-5.0); NEUTROPHILS # 4.6 10^3/uL (1.8-7.7); PLATELET COUNT, AUTOMATED 261 10^3/uL (150-450); RED BLOOD COUNT 4.53 10^6/uL (4.30-6.10); WHITE BLOOD COUNT 7.2 10^3/uL (4.0-10.0)
[2018-10-05 12:35] LABS: ALBUMIN 3.5 GM/DL (3.2-5.2); ALT/SGPT 106 U/L (12-78); BILIRUBIN,TOTAL 0.7 MG/DL (0.2-1.0); BLOOD UREA NITROGEN 11 MG/DL (7-18); CALCIUM LEVEL 8.7 MG/DL (8.8-10.2); CARBON DIOXIDE LEVEL 25 MEQ/L (21-32); CHLORIDE LEVEL 108 MEQ/L (98-107); CREATININE FOR GFR 1.07 MG/DL (0.70-1.30); GLOMERULAR FILTRATION RATE > 60.0 (>49); GLUCOSE, FASTING 135 MG/DL (70-100); LDH LACTATE DEHYDROGENASE 232 U/L (87-241); MAGNESIUM LEVEL 1.7 MG/DL (1.8-2.4); POTASSIUM SERUM 3.9 MEQ/L (3.5-5.1); SODIUM LEVEL 141 MEQ/L (136-145); TOTAL PROTEIN 5.8 GM/DL (6.4-8.2)
== END ==
LOC: M LAB REF 11:31
PROVIDERS: ATTEND Internal Medicine Hematology
DX: Z94.81 Bone marrow transplant status (principal)

== ENCOUNTER → 2018-10-12 | Outpatient (REF) | payer MEDICARE, OTHER ==
[2018-10-12 12:24] LABS: BASO % 0.4 % (0.0-1.0); EOS # 0.2 10^3/uL (0.0-0.50); EOS % 1.5 % (0.0-3.0); HEMATOCRIT 38.9 % (42.0-52.0); HEMOGLOBIN 13.4 g/dl (13.5-17.5); LYMPH # 1.4 10^3/uL (1.5-4.5); LYMPH % 13.7 % (24.0-44.0); MEAN CORPUSCULAR HEMOGLOBIN 29.9 pg (27.0-33.0); MEAN CORPUSCULAR HGB CONC 34.4 g/dl (32.0-36.5); MEAN CORPUSCULAR VOLUME 86.8 fl (80.0-96.0); MONO # 0.8 10^3/uL (0.0-0.8); MONO % 8.2 % (0.0-5.0); NEUTROPHILS # 7.5 10^3/uL (1.8-7.7); NEUTROPHILS % 75.9 % (36.0-66.0); PLATELET COUNT, AUTOMATED 245 10^3/uL (150-450); RED BLOOD COUNT 4.48 10^6/uL (4.30-6.10); WHITE BLOOD COUNT 9.8 10^3/uL (4.0-10.0)
[2018-10-12 12:34] LABS: ALBUMIN 3.6 GM/DL (3.2-5.2); ALT/SGPT 179 U/L (12-78); BILIRUBIN,TOTAL 0.4 MG/DL (0.2-1.0); BLOOD UREA NITROGEN 15 MG/DL (7-18); CALCIUM LEVEL 8.6 MG/DL (8.8-10.2); CARBON DIOXIDE LEVEL 27 MEQ/L (21-32); CHLORIDE LEVEL 109 MEQ/L (98-107); CREATININE FOR GFR 0.99 MG/DL (0.70-1.30); GLOMERULAR FILTRATION RATE > 60.0 (>49); GLUCOSE, FASTING 114 MG/DL (70-100); LDH LACTATE DEHYDROGENASE 220 U/L (87-241); MAGNESIUM LEVEL 1.8 MG/DL (1.8-2.4); POTASSIUM SERUM 3.6 MEQ/L (3.5-5.1); SODIUM LEVEL 143 MEQ/L (136-145); TOTAL PROTEIN 6.1 GM/DL (6.4-8.2)
== END ==
LOC: M LAB REF 11:14
PROVIDERS: ATTEND Internal Medicine Hematology
DX: Z94.81 Bone marrow transplant status (principal)

== ENCOUNTER → 2018-10-19 | Outpatient (REF) | payer MEDICARE, OTHER ==
[2018-10-19 11:08] LABS: BASO % 0.2 % (0.0-1.0); EOS # 0.1 10^3/uL (0.0-0.50); EOS % 1.2 % (0.0-3.0); HEMOGLOBIN 14.6 g/dl (13.5-17.5); LYMPH # 1.2 10^3/uL (1.5-4.5); LYMPH % 14.2 % (24.0-44.0); MEAN CORPUSCULAR HEMOGLOBIN 30.3 pg (27.0-33.0); MEAN CORPUSCULAR VOLUME 89.2 fl (80.0-96.0); MONO # 0.7 10^3/uL (0.0-0.8); MONO % 7.8 % (0.0-5.0); NEUTROPHILS # 6.5 10^3/uL (1.8-7.7); NEUTROPHILS % 75.7 % (36.0-66.0); PLATELET COUNT, AUTOMATED 224 10^3/uL (150-450); RED BLOOD COUNT 4.82 10^6/uL (4.30-6.10); WHITE BLOOD COUNT 8.6 10^3/uL (4.0-10.0)
[2018-10-19 11:33] LABS: ALBUMIN 3.5 GM/DL (3.2-5.2); BILIRUBIN,TOTAL 0.5 MG/DL (0.2-1.0); CALCIUM LEVEL 8.7 MG/DL (8.8-10.2); CREATININE FOR GFR 1.32 MG/DL (0.70-1.30); GLOMERULAR FILTRATION RATE 58.7 (>49); MAGNESIUM LEVEL 1.5 MG/DL (1.8-2.4); POTASSIUM SERUM 3.8 MEQ/L (3.5-5.1)
== END ==
LOC: M LAB REF 10:46
PROVIDERS: ATTEND Internal Medicine Hematology
DX: Z94.81 Bone marrow transplant status (principal)

== ENCOUNTER → 2018-10-26 | Outpatient (REF) | payer MEDICARE, OTHER ==
[~2018-10-26] MED LIST changes: +ACYC200C8 PO; +FLUC100T PO; +HYDR-3363 PO; +METO1TAB87 PO; +PRED10TA2 PO; +TACR0.5C3 PO
[2018-10-26 11:11] LABS: BASO % 0.2 % (0.0-1.0); EOS # 0.1 10^3/uL (0.0-0.50); EOS % 0.9 % (0.0-3.0); HEMATOCRIT 43.4 % (42.0-52.0); HEMOGLOBIN 14.5 g/dl (13.5-17.5); LYMPH # 1.4 10^3/uL (1.5-4.5); LYMPH % 23.5 % (24.0-44.0); MEAN CORPUSCULAR HEMOGLOBIN 30.2 pg (27.0-33.0); MEAN CORPUSCULAR HGB CONC 33.4 g/dl (32.0-36.5); MEAN CORPUSCULAR VOLUME 90.4 fl (80.0-96.0); MONO # 0.5 10^3/uL (0.0-0.8); MONO % 8.9 % (0.0-5.0); NEUTROPHILS # 3.9 10^3/uL (1.8-7.7); NEUTROPHILS % 66.2 % (36.0-66.0); PLATELET COUNT, AUTOMATED 215 10^3/uL (150-450); WHITE BLOOD COUNT 5.9 10^3/uL (4.0-10.0)
[2018-10-26 11:37] LABS: ALBUMIN 3.3 GM/DL (3.2-5.2); BILIRUBIN,TOTAL 0.4 MG/DL (0.2-1.0); CALCIUM LEVEL 8.7 MG/DL (8.8-10.2); CREATININE FOR GFR 1.39 MG/DL (0.70-1.30); GLOMERULAR FILTRATION RATE 55.3 (>49); MAGNESIUM LEVEL 1.9 MG/DL (1.8-2.4); POTASSIUM SERUM 3.9 MEQ/L (3.5-5.1); TOTAL PROTEIN 6.3 GM/DL (6.4-8.2)
== END ==
LOC: M LAB REF 10:21
PROVIDERS: ATTEND Internal Medicine Hematology
DX: Z94.81 Bone marrow transplant status (principal)

== ENCOUNTER → 2018-11-01 | Outpatient (REF) | payer MEDICARE, OTHER ==
[2018-11-01 11:28] LABS: BASO % 0.2 % (0.0-1.0); EOS # 0.2 10^3/uL (0.0-0.50); EOS % 2.2 % (0.0-3.0); HEMATOCRIT 41.5 % (42.0-52.0); HEMOGLOBIN 14.2 g/dl (13.5-17.5); LYMPH # 1.9 10^3/uL (1.5-4.5); LYMPH % 22.7 % (24.0-44.0); MEAN CORPUSCULAR HEMOGLOBIN 30.1 pg (27.0-33.0); MEAN CORPUSCULAR HGB CONC 34.2 g/dl (32.0-36.5); MEAN CORPUSCULAR VOLUME 88.1 fl (80.0-96.0); MONO # 0.7 10^3/uL (0.0-0.8); MONO % 8.1 % (0.0-5.0); NEUTROPHILS # 5.4 10^3/uL (1.8-7.7); NEUTROPHILS % 66.1 % (36.0-66.0); PLATELET COUNT, AUTOMATED 258 10^3/uL (150-450); RED BLOOD COUNT 4.71 10^6/uL (4.30-6.10); WHITE BLOOD COUNT 8.1 10^3/uL (4.0-10.0)
[2018-11-01 12:05] LABS: ALBUMIN 3.4 GM/DL (3.2-5.2); BILIRUBIN,TOTAL 0.4 MG/DL (0.2-1.0); CREATININE FOR GFR 1.38 MG/DL (0.70-1.30); GLOMERULAR FILTRATION RATE 55.8 (>49); MAGNESIUM LEVEL 1.6 MG/DL (1.8-2.4); TOTAL PROTEIN 6.1 GM/DL (6.4-8.2)
== END ==
LOC: M LAB REF 11:12
PROVIDERS: ATTEND Internal Medicine Hematology
DX: Z94.81 Bone marrow transplant status (principal)

== ENCOUNTER → 2018-11-09 | Outpatient (REF) | payer MEDICARE, OTHER ==
[~2018-11-09] MED LIST changes: +BACT800T5 PO; +LEVO750T13 PO
[2018-11-09 12:02] LABS: BASO % 0.2 % (0.0-1.0); EOS # 0.1 10^3/uL (0.0-0.50); EOS % 1.9 % (0.0-3.0); HEMOGLOBIN 13.1 g/dl (13.5-17.5); LYMPH # 1.1 10^3/uL (1.5-4.5); LYMPH % 18.2 % (24.0-44.0); MEAN CORPUSCULAR HEMOGLOBIN 30.3 pg (27.0-33.0); MEAN CORPUSCULAR HGB CONC 34.5 g/dl (32.0-36.5); MEAN CORPUSCULAR VOLUME 87.8 fl (80.0-96.0); MONO # 0.6 10^3/uL (0.0-0.8); MONO % 10.1 % (0.0-5.0); NEUTROPHILS # 4.3 10^3/uL (1.8-7.7); PLATELET COUNT, AUTOMATED 205 10^3/uL (150-450); RED BLOOD COUNT 4.33 10^6/uL (4.30-6.10); WHITE BLOOD COUNT 6.3 10^3/uL (4.0-10.0)
[2018-11-09 12:51] LABS: ALBUMIN 3.4 GM/DL (3.2-5.2); BILIRUBIN,TOTAL 0.4 MG/DL (0.2-1.0); CALCIUM LEVEL 8.6 MG/DL (8.8-10.2); CREATININE FOR GFR 1.43 MG/DL (0.70-1.30); GLOMERULAR FILTRATION RATE 53.5 (>49); MAGNESIUM LEVEL 1.5 MG/DL (1.8-2.4); POTASSIUM SERUM 3.9 MEQ/L (3.5-5.1); TOTAL PROTEIN 6.1 GM/DL (6.4-8.2)
== END ==
LOC: M LAB REF 11:09
PROVIDERS: ATTEND Internal Medicine Hematology
DX: Z94.81 Bone marrow transplant status (principal)

== ENCOUNTER → 2018-11-13 | Outpatient (CLI) | payer MEDICARE, OTHER ==
--- NOTE | 2018-11-13 14:21 | REP ---
Chest two views HISTORY: Post bone marrow transplant Comparison: 11/02/2017 The lungs are clear. The heart is normal in size. The pulmonary vasculature is normal in appearance. The bony structure is intact. An Amwsaq-I-Gojz catheter is present. IMPRESSION: No acute disease. Electronically Signed by Ron Myers MD 11/13/2018 02:11 P
== END ==
LOC: M LAB 13:42 → M RAD 13:42
PROVIDERS: ATTEND Internal Medicine Medical Oncology
DX: R05 Cough (principal); C83.10 Mantle cell lymphoma, unspecified site

== ENCOUNTER → 2018-11-16 | Outpatient (REF) | payer MEDICARE, OTHER ==
[2018-11-16 11:30] LABS: BASO % 0.3 % (0.0-1.0); EOS # 0.1 10^3/uL (0.0-0.50); EOS % 1.2 % (0.0-3.0); HEMATOCRIT 41.6 % (42.0-52.0); LYMPH # 1.5 10^3/uL (1.5-4.5); LYMPH % 22.2 % (24.0-44.0); MEAN CORPUSCULAR HEMOGLOBIN 30.2 pg (27.0-33.0); MEAN CORPUSCULAR HGB CONC 33.7 g/dl (32.0-36.5); MEAN CORPUSCULAR VOLUME 89.7 fl (80.0-96.0); MONO # 0.6 10^3/uL (0.0-0.8); MONO % 8.7 % (0.0-5.0); NEUTROPHILS # 4.5 10^3/uL (1.8-7.7); NEUTROPHILS % 67.2 % (36.0-66.0); PLATELET COUNT, AUTOMATED 151 10^3/uL (150-450); RED BLOOD COUNT 4.64 10^6/uL (4.30-6.10); WHITE BLOOD COUNT 6.7 10^3/uL (4.0-10.0)
[2018-11-16 11:42] LABS: ALBUMIN 3.4 GM/DL (3.2-5.2); BILIRUBIN,TOTAL 0.4 MG/DL (0.2-1.0); CALCIUM LEVEL 8.7 MG/DL (8.8-10.2); CREATININE FOR GFR 1.47 MG/DL (0.70-1.30); GLOMERULAR FILTRATION RATE 51.7 (>49); MAGNESIUM LEVEL 1.7 MG/DL (1.8-2.4); POTASSIUM SERUM 3.7 MEQ/L (3.5-5.1); TOTAL PROTEIN 6.3 GM/DL (6.4-8.2)
== END ==
LOC: M LAB REF 10:51
PROVIDERS: ATTEND Internal Medicine Hematology
DX: Z94.81 Bone marrow transplant status (principal)

== ENCOUNTER → 2018-11-23 | Outpatient (REF) | payer MEDICARE, OTHER ==
[~2018-11-23] MED LIST changes: +ENOX100I3 SC; +ENOX30IN3 SC; +LIDO2.5C15 TOP
[2018-11-23 11:29] LABS: BASO % 0.5 % (0.0-1.0); EOS # 0.3 10^3/uL (0.0-0.50); HEMATOCRIT 40.2 % (42.0-52.0); LYMPH # 1.7 10^3/uL (1.5-4.5); LYMPH % 20.3 % (24.0-44.0); MEAN CORPUSCULAR HEMOGLOBIN 30.8 pg (27.0-33.0); MEAN CORPUSCULAR HGB CONC 34.8 g/dl (32.0-36.5); MEAN CORPUSCULAR VOLUME 88.5 fl (80.0-96.0); MONO # 0.7 10^3/uL (0.0-0.8); MONO % 8.1 % (0.0-5.0); NEUTROPHILS # 5.8 10^3/uL (1.8-7.7); NEUTROPHILS % 67.3 % (36.0-66.0); PLATELET COUNT, AUTOMATED 197 10^3/uL (150-450); RED BLOOD COUNT 4.54 10^6/uL (4.30-6.10); WHITE BLOOD COUNT 8.5 10^3/uL (4.0-10.0)
[2018-11-23 12:07] LABS: ALBUMIN 3.4 GM/DL (3.2-5.2); ALT/SGPT 41 U/L (12-78); BILIRUBIN,TOTAL 0.6 MG/DL (0.2-1.0); BLOOD UREA NITROGEN 17 MG/DL (7-18); CARBON DIOXIDE LEVEL 27 MEQ/L (21-32); CHLORIDE LEVEL 106 MEQ/L (98-107); CREATININE FOR GFR 1.15 MG/DL (0.70-1.30); GLOMERULAR FILTRATION RATE > 60.0 (>49); GLUCOSE, FASTING 197 MG/DL (70-100); LDH LACTATE DEHYDROGENASE 249 U/L (87-241); MAGNESIUM LEVEL 1.9 MG/DL (1.8-2.4); POTASSIUM SERUM 3.9 MEQ/L (3.5-5.1); SODIUM LEVEL 141 MEQ/L (136-145); TOTAL PROTEIN 6.3 GM/DL (6.4-8.2)
== END ==
LOC: M LAB REF 11:10
PROVIDERS: ATTEND Internal Medicine Hematology
DX: Z94.81 Bone marrow transplant status (principal)

== ENCOUNTER → 2018-11-26 | Outpatient (CLI) | payer MEDICARE, OTHER ==
--- NOTE | 2018-11-26 16:59 | REP ---
Right lower extremity duplex venous ultrasound: History: Right calf pain. Findings: There is occlusive deep venous thrombosis involving the right femoral vein from proximal thigh through the popliteal vein segment in the right lower extremity. the common femoral vein is patent. Impression: Positive study. Occlusive deep venous thrombosis throughout the femoral vein and popliteal vein in the right lower extremity. Electronically Signed by Fidencio Negro MD 11/26/2018 05:02 P
--- NOTE | 2018-11-26 17:22 | REP ---
Soft-tissue ultrasound right calf: History: Rule out tendon rupture. Right calf pain. Mantel cell lymphoma status post transplant. Treatment with Levaquin. Calf ultrasound findings: Scanning of the right calf is performed from the popliteal fossa the ankle. No abnormal fluid collection is seen. No other abnormality is noted. The Achilles tendon appears intact by ultrasound. Impression: Negative right calf sonography. No evidence by ultrasound to suggest Achilles tendon tear. Electronically Signed by Fidencio Negro MD 11/26/2018 05:25 P
== END ==
LOC: M RAD 15:11
PROVIDERS: ATTEND Internal Medicine Medical Oncology
DX: M79.661 Pain in right lower leg (principal)

== ENCOUNTER → 2018-11-30 | Outpatient (REF) | payer MEDICARE, OTHER ==
[2018-11-30 11:46] LABS: BASO % 0.3 % (0.0-1.0); EOS # 0.1 10^3/uL (0.0-0.50); EOS % 1.5 % (0.0-3.0); HEMATOCRIT 39.5 % (42.0-52.0); HEMOGLOBIN 13.2 g/dl (13.5-17.5); LYMPH # 1.5 10^3/uL (1.5-4.5); LYMPH % 16.5 % (24.0-44.0); MEAN CORPUSCULAR HGB CONC 33.4 g/dl (32.0-36.5); MEAN CORPUSCULAR VOLUME 89.8 fl (80.0-96.0); MONO # 0.7 10^3/uL (0.0-0.8); MONO % 7.6 % (0.0-5.0); NEUTROPHILS # 6.8 10^3/uL (1.8-7.7); NEUTROPHILS % 73.4 % (36.0-66.0); PLATELET COUNT, AUTOMATED 244 10^3/uL (150-450); WHITE BLOOD COUNT 9.2 10^3/uL (4.0-10.0)
[2018-11-30 12:00] LABS: ALBUMIN 3.6 GM/DL (3.2-5.2); BILIRUBIN,TOTAL 0.3 MG/DL (0.2-1.0); CREATININE FOR GFR 1.33 MG/DL (0.70-1.30); MAGNESIUM LEVEL 1.7 MG/DL (1.8-2.4); POTASSIUM SERUM 4.4 MEQ/L (3.5-5.1)
== END ==
LOC: M LAB REF 10:58
PROVIDERS: ATTEND Internal Medicine Hematology
DX: Z94.81 Bone marrow transplant status (principal)

== ENCOUNTER → 2018-12-07 | Outpatient (REF) | payer MEDICARE, OTHER ==
[2018-12-07 11:13] LABS: BASO % 0.5 % (0.0-1.0); EOS # 0.2 10^3/uL (0.0-0.50); HEMATOCRIT 43.5 % (42.0-52.0); HEMOGLOBIN 14.8 g/dl (13.5-17.5); LYMPH # 2.1 10^3/uL (1.5-4.5); LYMPH % 25.8 % (24.0-44.0); MEAN CORPUSCULAR HEMOGLOBIN 30.4 pg (27.0-33.0); MEAN CORPUSCULAR VOLUME 89.3 fl (80.0-96.0); MONO # 0.7 10^3/uL (0.0-0.8); MONO % 7.9 % (0.0-5.0); NEUTROPHILS # 5.1 10^3/uL (1.8-7.7); NEUTROPHILS % 62.5 % (36.0-66.0); PLATELET COUNT, AUTOMATED 264 10^3/uL (150-450); RED BLOOD COUNT 4.87 10^6/uL (4.30-6.10); WHITE BLOOD COUNT 8.2 10^3/uL (4.0-10.0)
[2018-12-07 11:53] LABS: ALBUMIN 3.9 GM/DL (3.2-5.2); BILIRUBIN,TOTAL 0.4 MG/DL (0.2-1.0); CALCIUM LEVEL 9.2 MG/DL (8.8-10.2); CREATININE FOR GFR 1.49 MG/DL (0.70-1.30); GLOMERULAR FILTRATION RATE 50.9 (>49); MAGNESIUM LEVEL 1.6 MG/DL (1.8-2.4); POTASSIUM SERUM 3.9 MEQ/L (3.5-5.1)
== END ==
LOC: M LAB REF 11:01
PROVIDERS: ATTEND Internal Medicine Hematology
DX: Z94.81 Bone marrow transplant status (principal)

== ENCOUNTER → 2018-12-21 | Outpatient (REF) | payer MEDICARE, OTHER ==
[~2018-12-21] MED LIST changes: +ALCOPAD22 XX; +ASPI81TAEC PO; +CETI10TA PO; +CETI1SYP16 PO; +COLA100C5 PO; +DOCU100C16 PO; +FREEMIS42 TOP; +FREETES VI; +INSUDET SC; +LIDO2.5C15 EXT; +NOVOINJ3 SC; +TRIA1OI80 TOP; +[UNRECOGNIZED DRUG - CODE] SC; +[UNRECOGNIZED DRUG - CODE] XX
[2018-12-21 11:15] LABS: BASO % 0.3 % (0.0-1.0); EOS # 0.1 10^3/uL (0.0-0.50); EOS % 1.3 % (0.0-3.0); HEMATOCRIT 40.6 % (42.0-52.0); HEMOGLOBIN 13.9 g/dl (13.5-17.5); LYMPH # 1.8 10^3/uL (1.5-4.5); LYMPH % 25.5 % (24.0-44.0); MEAN CORPUSCULAR HEMOGLOBIN 30.5 pg (27.0-33.0); MEAN CORPUSCULAR HGB CONC 34.2 g/dl (32.0-36.5); MONO # 0.5 10^3/uL (0.0-0.8); MONO % 7.4 % (0.0-5.0); NEUTROPHILS # 4.5 10^3/uL (1.8-7.7); NEUTROPHILS % 64.5 % (36.0-66.0); PLATELET COUNT, AUTOMATED 221 10^3/uL (150-450); RED BLOOD COUNT 4.56 10^6/uL (4.30-6.10)
[2018-12-21 11:25] LABS: ALBUMIN 3.6 GM/DL (3.2-5.2); BILIRUBIN,TOTAL 0.5 MG/DL (0.2-1.0); CALCIUM LEVEL 8.9 MG/DL (8.8-10.2); CREATININE FOR GFR 1.35 MG/DL (0.70-1.30); TOTAL PROTEIN 6.3 GM/DL (6.4-8.2)
== END ==
LOC: M LAB REF 10:36
PROVIDERS: ATTEND Internal Medicine Hematology
DX: Z94.81 Bone marrow transplant status (principal)

== ENCOUNTER 2018-12-25 18:02 | Observation (INO) | payer MEDICARE, OTHER ==
[~2018-12-25] VITALS: Ht 170.2 cm; Wt 84.9 kg
[~2018-12-25 18:02] MED LIST changes: -ALCOPAD22 XX; -ALLE10TA2 PO; -ALLO15TA PO; +ALLO300T2 PO; -ASPI81CH PO; +ASPI81CH49 PO; -ASPI81TAEC PO; -CETI10TA PO; -CETI1SYP16 PO; -COLA100C5 PO; -DOCU100C16 PO; -FREEMIS42 TOP; -FREETES VI; -INSUDET SC; -LIDO2.5C15 EXT; +LORA-753 PO; +MICA5TAB OR; -NOVOINJ3 SC; -TELM20TA OR; -TRIA1OI80 TOP; -[UNRECOGNIZED DRUG - CODE] SC; -[UNRECOGNIZED DRUG - CODE] XX
[2018-12-25] MEDS ORDERED: NS 500 ML IV ONE (19:15)
[2018-12-25] MEDS ORDERED: NS 1,000 ML IV SCH (19:15)
[2018-12-25] MEDS ORDERED: COLA100C5 PO (19:46)
[2018-12-25] MEDS ORDERED: CETI1SYP16 PO (19:46)
[2018-12-25 20:43] LABS: BASO % 0.2 % (0.0-1.0); EOS % 0.1 % (0.0-3.0); HEMATOCRIT 39.7 % (42.0-52.0); HEMOGLOBIN 13.9 g/dl (13.5-17.5); LYMPH % 9.1 % (24.0-44.0); MEAN CORPUSCULAR HEMOGLOBIN 31.1 pg (27.0-33.0); MEAN CORPUSCULAR VOLUME 88.8 fl (80.0-96.0); MONO # 0.3 10^3/uL (0.0-0.8); MONO % 3.1 % (0.0-5.0); NEUTROPHILS % 86.1 % (36.0-66.0); PLATELET COUNT, AUTOMATED 229 10^3/uL (150-450); RED BLOOD COUNT 4.47 10^6/uL (4.30-6.10); VENOUS BASE EXCESS -0.9 (-2.0-2.0); VENOUS HCO3 24.5 MEQ/L (23.0-27.0); VENOUS O2 SATURATION 87.5 % (60.0-80.0); VENOUS PARTIAL PRESSURE CO2 42.9 mmHg (38.0-50.0); VENOUS PARTIAL PRESSURE O2 54.6 mmHg (30.0-50.0); VENOUS PH 7.374 UNITS (7.330-7.430); VENOUS STANDARD HCO3 23.5 MEQ/L; VENOUS TOTAL CO2 25.8 MEQ/L (24.0-28.0); WHITE BLOOD COUNT 10.4 10^3/uL (4.0-10.0)
[2018-12-25] MEDS ORDERED: HumaLOG INSULIN (NovoLOG) PER UNIT SC SCH (21:00)
[2018-12-25 21:02] LABS: HEMOGLOBIN A1c 10.6 %
[2018-12-25 21:21] LABS: OSMOLALITY SERUM 291 MOSM/KG (280-301)
[2018-12-25 21:26] LABS: ACETONE/KETONE 2.36 MG/DL (<2.81); ALBUMIN 3.8 GM/DL (3.2-5.2); ALT/SGPT 78 U/L (12-78); BILIRUBIN,DIRECT < 0.1 MG/DL (0.0-0.2); BILIRUBIN,TOTAL 0.4 MG/DL (0.2-1.0); BLOOD UREA NITROGEN 20 MG/DL (7-18); CALCIUM LEVEL 9.1 MG/DL (8.8-10.2); CARBON DIOXIDE LEVEL 26 MEQ/L (21-32); CHLORIDE LEVEL 99 MEQ/L (98-107); CK-MB VALUE MASS < 1.0 NG/ML (<3.6); CPK CREATINE PHOSPHOKINASE 25 U/L (39-308); CREATININE FOR GFR 1.53 MG/DL (0.70-1.30); GLOMERULAR FILTRATION RATE 49.3 (>49); GLUCOSE, FASTING 430 MG/DL (70-100); LIPASE 198 U/L (73-393); MAGNESIUM LEVEL 1.9 MG/DL (1.8-2.4); PHOSPHORUS LEVEL 2.6 MG/DL (2.5-4.9); POTASSIUM SERUM 4.5 MEQ/L (3.5-5.1); SODIUM LEVEL 133 MEQ/L (136-145); TOTAL PROTEIN 6.4 GM/DL (6.4-8.2); TROPONIN I < 0.02 NG/ML (< 0.10)
[2018-12-25] MEDS ORDERED: HumuLIN R (REGULAR) INSULIN (NovoLIN R) **100U/ML** PER UNIT SC ONE (22:30)
[2018-12-25] MEDS ORDERED: HumuLIN R (REGULAR) INSULIN (NovoLIN R) **100U/ML** PER UNIT SC STA (22:44)
[2018-12-25] MEDS ORDERED: LIDO2.5C15 EXT (23:20)
[2018-12-25] MEDS ORDERED: ENOX30IN3 SC (23:20)
[2018-12-25] MEDS ORDERED: DOCU100C16 PO (23:20)
[2018-12-25] MEDS ORDERED: ASPI81TAEC PO (23:20)
[2018-12-25] MEDS ORDERED: CETI10TA PO (23:20)
[2018-12-25] MEDS ORDERED: ENOX100I3 SC (23:20)
[2018-12-25] MEDS ORDERED: MAXA10TA15 PO (23:25)
[2018-12-25] MEDS ORDERED: MYRB25TA PO (23:25)
[2018-12-25] MEDS ORDERED: PRED10TA2 PO (23:25)
[2018-12-25] MEDS ORDERED: TRIA1OI80 TOP (23:25)
[2018-12-25] MEDS ORDERED: ACETAMINOPHEN TAB 650MG DOSE (2X325MG) PO PRN (23:45)
[2018-12-26] MEDS ORDERED: GLUCOSE 4 GM CHEW TABLET PO PRN
[2018-12-26] MEDS ORDERED: GLUCAGON FOR INJ 1 MG VIAL (J1610) SC PRN
[2018-12-26] MEDS ORDERED: RIZATRIPTAN MLT 10 MG TAB PO PRN
[2018-12-26] MEDS ORDERED: DEXTROSE 50% 50 ML SYRINGE IV PRN
[2018-12-26] MEDS ORDERED: LEVEMIR (INSULIN DETEMIR) 1 UNITS/0.01ML SC ONE
--- NOTE | 2018-12-26 00:17 | HPEPDOC ---
[facility] Medical History & Physical Date of Admission Dec 25, 2018 Primary Care Physician: A Other Provider Dr. Lafleur and Dr. 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 Had been tapered to 30 mg daily to 20 mg daily starting today. Blood sugar noted to be up to 430 in ER but no evidence of DKA. No history of DM or hyperglycemia in the past. Patient reported thirst otherwise denies any other symptoms including fever, chills, shortness of breath or any other symptoms. Oncologist: Dr. Mcfadden at [place] PAST MEDICAL HISTORY: 1. Mantle cell lymphoma status post stem cell transplant 1 year prior. 2. Jqkyx-fqclot-fhci ejection on chronic steroids and immunosuppressive. 3. Hyperglycemia. 4. Hypertension. 5. Right lower extremity DVT on Lovenox SURGICAL HISTORY: Abdominal hernia repair SOCIAL HISTORY: Denies alcohol, tobacco or illicit drug use FAMILY HISTORY: Mother with lung cancer ALLERGIES: Erythromycin REVIEW OF SYSTEMS: General: Denies fever and chills Eyes: Denies visual changes/pain HENT: Denies hearing changes, discharge, sore throat Cardiovascular: denies chest pain, palpitations Pulmonary: no cough, dyspnea, wheezing GI: denies nausea, vomiting, abdominal pain : denies dysuria, urinary frequency Neuro: denies numbness or weakness HOME MEDICATIONS: Please see below. PHYSICAL EXAMINATION: General: No acute distress, Alert Eyes: Normal sclera, EOMI, AZC HENT: Atraumatic, neck supple, moist mucous membranes Cardiovascular: Normal rate, normal rhythm. No murmurs appreciated. Pulmonary: Clear to auscultation b/l, no wheezing. L. chest with chemo port in place. GI: Soft, nontender, nondistended Skin: Warm and dry Neuro: CN grossly intact. No focal deficits. Strengths equal b/l. Psych: oriented x 3 LABORATORY DATA: See below. MICROBIOLOGY: Please see below. ASSESSMENT and PLAN: 1. Hyperglycemia - Hyperglycemia secondary to steroid use. - Insulin ayaka. We'll start on low-dose 10 units of Levemir with insulin sliding scale tonight. - We'll continue to monitor with Accu-Cheks and adjust as needed. - May need short-term insulin at home until prednisone is tapered and blood suga r improves. - Has been on prednisone for about 3 months, just completed course of 30 mg daily and to start 20 mg daily today. 2. DVT - Right lower extremity DVT started on Lovenox for several weeks. - Continue home dose Lovenox daily. 3. 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 Mcfadden in [place]. - c/w home medications including prednisone and immunosupressant. 4. HTN - Resume home medications. Patient is high risk due to severe hyperglycemia in setting of underlying immunosupression and chronic steroid use. Estimated length of stay less than 2 midnights with expected disposition to home. Vital Signs Vital Signs Date Time Temp Pulse Resp B/P (MAP) Pulse Ox O2 Delivery O2 Flow Rate FiO2 12/25/18 19:33 12/25/18 18:03 98.4 100 17 96 Room Air Laboratory Data Labs 24H Laboratory Tests 2 12/25/18 20:05: Immature Granulocyte % (Auto) 1.4, White Blood Count 10.4H, Red Blood Count 4.47, Hemoglobin 13.9, Hematocrit 39.7L, Mean Corpuscular Volume 88.8, Mean Corpuscular Hemoglobin 31.1, Mean Corpuscular Hemoglobin Concent 35.0, Red Cell Distribution Width 13.9, Platelet Count 229, Neutrophils (%) (Auto) 86.1H, Lymphocytes (%) (Auto) 9.1L, Monocytes (%) (Auto) 3.1, Eosinophils (%) (Auto) 0.1, Basophils (%) (Auto) 0.2, Neutrophils # (Auto) 9.0H, Lymphocytes # (Auto) 1.0L, Monocytes # (Auto) 0.3, Eosinophils # (Auto) 0.0, Basophils # (Auto) 0.0, Nucleated Red Blood Cells % (auto) 0.0, Blood Gas Bicarbonate Standard 23.5, Venous Blood pH 7.374, Venous Blood Partial Pressure CO2 42.9, Venous Blood Partial Pressure O2 54.6H, Venous Blood Total Carbon Dioxide 25.8, Venous Blood HCO3 24.5, Venous Blood Oxygen Saturation 87.5H, Venous Blood Base Excess -0.9, Anion Gap 8, Glomerular Filtration Rate 49.3, Estimated Mean Plasma Glucose 258H, Hemoglobin A1c 10.6, Osmolality 291, Calcium Level 9.1, Phosphorus Level 2.6, Magnesium Level 1.9, Aspartate Amino Transf (AST/SGOT) 28, Alanine Aminotransferase (ALT/SGPT) 78, Alkaline Phosphatase 115, Total Bilirubin 0.4, Direct Bilirubin < 0.1, Total Creatine Kinase 25L, Creatine Kinase MB < 1.0, C reatine Kinase MB Relative Index 4.00, Troponin I < 0.02, Total Protein 6.4, Albumin 3.8, Albumin/Globulin Ratio 1.46, Lipase 198, B-Hydroxybutyrate 2.36 12/25/18 20:08: Urine Color STRAW, Urine Appearance CLEAR, Urine pH 5.0, Urine Specific [place] 1.031, Urine Protein NEGATIVE, Urine Glucose (UA) 3+H, Urine Ketones NEGATIVE, Urine Blood NEGATIVE, Urine Nitrite NEGATIVE, Urine Bilirubin NEGATIVE, Urine Urobilinogen 0.2, Urine Leukocyte Esterase NEGATIVE, Urine WBC (Auto) 0, Urine RBC (Auto) 1, Urine Hyaline Casts (Auto) 0, Urine Bacteria (Auto) NEGATIVE, Urine Squamous Epithelial Cells 0, Urine Sperm (Auto) 12/25/18 21:40: Bedside Glucose (Misc Panel) 393H CBC/BMP Laboratory Tests 12/25/18 20:05 Red Blood Count 4.47, Mean Corpuscular Volume 88.8, Mean Corpuscular Hemoglobin 31.1, Mean Corpuscular Hemoglobin Concent 35.0, Red Cell Distribution Width 13.9, Neutrophils (%) (Auto) 86.1 H, Lymphocytes (%) (Auto) 9.1 L, Monocytes (%) (Auto) 3.1, Eosinophils (%) (Auto) 0.1, Basophils (%) (Auto) 0.2, Neutrophils # (Auto) 9.0 H, Lymphocytes # (Auto) 1.0 L, Monocytes # (Auto) 0.3, Eosinophils # (Auto) 0.0, Basophils # (Auto) 0.0 Home Medications Scheduled (Acyclovir) 200 Mg Cap, 400 MG PO BID (Lidocaine/Prilocaine 2.5-2.5 %) 1 Cre Cre, 1 CRE EXT ASDIRECTED USES AROUND PORT PRIOR TO APPOINTMENTS Aspirin (Aspirin EC) 81 Mg Tabec, 81 MG PO DAILY Cetirizine HCl (Cetirizine HCl) 10 Mg Tab, 10 MG PO BID Docusate Sodium (Docusate Sodium) 100 Mg Cap, 100 MG PO BID Enoxaparin Sodium (Enoxaparin Sodium) 30 Mg/0.3 Ml Inj, 30 MG SC DAILY TAKES WITH 100MG FOR 130MG TOTAL Enoxaparin Sodium (Enoxaparin Sodium) 100 Mg/Ml Inj, 100 MG SC DAILY TAKES WITH 30MG FOR 130MG TOTAL Fluconazole (Fluconazole) 100 Mg Tab, 200 MG PO QPM TAKES AT DINNERTIME Fluticasone/Vilanterol (Breo Ellipta 200-25 Mcg/INH) 1 Inh Inh, 2 PUFFS INH DAILY Hydroxyzine HCl (Hydroxyzine HCl) 25 Mg Tab, 50 MG PO QHS Metoprolol Tartrate (Metoprolol Tartrate) 25 Mg Tab, 25 MG PO BID Mirabegron Base (Myrbetriq) 25 Mg Tab, 25 MG PO DAILY Pantoprazole Sodium (Pantoprazole Sodium) 40 Mg Tab, 40 MG PO BID Prednisone (Prednisone) 10 Mg Tab, 20 MG PO DAILY TOOK 30MG FOR 12/25/18 DOSE BUT DOCTORS LOWERED DOSE TO 20MG FOR FUTURE DOSES Tacrolimus (Tacrolimus) 0.5 Mg Cap, 0.5 MG PO BID Triamcinolone Acet (Triamcinolone Acetonide 0.1% Oint) 1 Dose/80 Gm Oint, 1 DOSE TOP DAILY USES UNDER ABDOMINAL FOLDS Trimethoprim/Sulfamethoxazole (Bactrim Ds 800-160 mg) 1 Tab Tab, 1 TAB PO 3XW TAKES MONDAY, MONDAY AND MONDAY Scheduled PRN Albuterol Sulfate (Proair Hfa) 108 Mcg/Act Aer, 2 PUFF INH Q4H PRN for SHORTNESS OF BREATH Rizatriptan Benzoate (Maxalt-Director Of Market Intelligence) 10 Mg Tab, 10 MG PO BID PRN for MIGRAINE Allergies Coded Allergies: erythromycin base (Verified Allergy, Severe, HIVES, DIFFICULTY, 12/21/18) EPHRAIM GAYTAN MD Dec 26, 2018 00:17
[2018-12-26 01:21] VITALS: BP 133/86
[2018-12-26] MEDS: PANTOPRAZOLE 40MG TAB (PROTONIX) PO SCH ×2 (01:55→10:20)
[2018-12-26] MEDS: CETIRIZINE (ZyrTEC) 10 MG TAB PO SCH ×2 (01:55→10:21)
[2018-12-26] MEDS: METOPROLOL TART 25 MG TABLET PO SCH ×2 (01:55→10:20)
[2018-12-26] MEDS: TACROLIMUS 0.5 MG CAP PO SCH ×3 (02:10→12:31)
[2018-12-26] MEDS ORDERED: SODIUM CHLORIDE 0.9% INJ 10 ML SYR IV PRN (03:00)
[2018-12-26 06:00] VITALS: BP 105/71
[2018-12-26 06:04] LABS: HEMATOCRIT 37.8 % (42.0-52.0); MEAN CORPUSCULAR HEMOGLOBIN 30.5 pg (27.0-33.0); MEAN CORPUSCULAR HGB CONC 34.4 g/dl (32.0-36.5); MEAN CORPUSCULAR VOLUME 88.7 fl (80.0-96.0); PLATELET COUNT, AUTOMATED 207 10^3/uL (150-450); RED BLOOD COUNT 4.26 10^6/uL (4.30-6.10); WHITE BLOOD COUNT 8.8 10^3/uL (4.0-10.0)
[2018-12-26 06:39] LABS: ALT/SGPT 58 U/L (12-78); BILIRUBIN,TOTAL 0.3 MG/DL (0.2-1.0); BLOOD UREA NITROGEN 18 MG/DL (7-18); CALCIUM LEVEL 8.4 MG/DL (8.8-10.2); CARBON DIOXIDE LEVEL 27 MEQ/L (21-32); CHLORIDE LEVEL 104 MEQ/L (98-107); CREATININE FOR GFR 1.17 MG/DL (0.70-1.30); GLOMERULAR FILTRATION RATE > 60.0 (>49); GLUCOSE, FASTING 234 MG/DL (70-100); POTASSIUM SERUM 4.1 MEQ/L (3.5-5.1); SODIUM LEVEL 138 MEQ/L (136-145); TOTAL PROTEIN 5.5 GM/DL (6.4-8.2)
[2018-12-26] MEDS ORDERED: BACTRIM 160MG/800MG DS TAB PO SCH (09:00)
[2018-12-26] MEDS ORDERED: ASPIRIN 81 MG ENTERIC TAB PO SCH (09:00)
[2018-12-26] MEDS ORDERED: DOCUSATE SODIUM 100 MG CAP PO SCH (09:00)
[2018-12-26] MEDS ORDERED: SODIUM CHLORIDE 0.9% INJ 10 ML SYR IV SCH (09:00)
[2018-12-26] MEDS ORDERED: TRIAMCINOLONE ACET 0.1% OINTMENT 80 GM TOP SCH (09:00)
[2018-12-26] MEDS ORDERED: predniSONE 20 MG TAB PO SCH (09:00)
[2018-12-26 10:00] VITALS: BP 128/96
[2018-12-26] MEDS ORDERED: ENOXAPARIN 100MG/1ML SYRINGE (J1650) SC SCH (10:00)
[2018-12-26] MEDS ORDERED: ENOXAPARIN 30 MG/0.3 ML SYR (J1650) SC SCH (10:00)
[2018-12-26] MEDS: HumaLOG INSULIN (NovoLOG) PER UNIT SC SCH ×2 (10:17→13:13)
[2018-12-26 10:20] VITALS: BP 132/84
[2018-12-26] MEDS ORDERED: INSUDET SC (12:26)
[2018-12-26] MEDS ORDERED: FREETES VI (12:26)
[2018-12-26] MEDS ORDERED: [UNRECOGNIZED DRUG - CODE] XX (12:26)
[2018-12-26] MEDS ORDERED: NOVOINJ3 SC (12:26)
[2018-12-26] MEDS ORDERED: FREEMIS42 TOP (12:26)
[2018-12-26] MEDS ORDERED: ALCOPAD22 XX (12:26)
[2018-12-26] MEDS ORDERED: [UNRECOGNIZED DRUG - CODE] SC (12:26)
[2018-12-26] MEDS ORDERED: FLUCONAZOLE 100 MG TAB PO SCH (18:00)
--- NOTE | 2018-12-26 19:05 | DS.PDOC ---
Discharge Summary General Date of Admission Dec 25, 2018 at 23:45 Date of Discharge 12/26/2018 Discharge Summary PROCEDURES PERFORMED DURING STAY: None. 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 HISTORY OF PRESENT ILLNESS: The patient is a 63-year-old gentleman with a previous history of mantle cell lymphoma status post an cell transplant followed by [facility] on chronic prednisone therapy who presented to the ER after he noticed elevated blood sugars at home. The patient's is a diabetic. P the patient had been quite thirsty with a [place]. The patient reports they're known that he was having some problems with slightly elevated blood sugars. However, since he seemed to have symptoms associated with hyperglycemia including increased thirst, his checked his fingerstick which read "high". Subsequently, she brought him to the ER for further evaluation. HOSPITAL COURSE: Initial workup in the ER showed a blood glucose 430. The patient was admitted to our facility as observation status. He was started on Levemir 10 units basal insulin as well as sliding scale insulin. His fingersticks did improve with the samelast fingerstick was 162. Patient's labs looked fairly unremarkable today. Hemoglobin A1c was 10.6. He was seen in consultation by nurse rn diabetes educator. He was advised regarding continuing basal insulin as well as sliding scale at home. Once the patient weans off the prednisone, he may be able to come off the basal insulin and eventually perhaps even off the sliding scale. He was also advised regarding carbohydrate consistent diet an 1800 kcal diet. Home health nursing will also be arranged for. The patient otherwise is doing well, tolerating oral intake, able to ablate and plan is for him to discharge home today. I have updated the patient's oncologist at [facility] regarding the plan of care. DISCHARGE MEDICATIONS: Please see below. ALLERGIES: Please see below. PHYSICAL EXAMINATION ON DISCHARGE: VITAL SIGNS: Please see below. GENERAL: Sitting up in bed. No distress CARDIOVASCULAR EXAMINATION: S1-S2 heard, no rubs or gallops RESPIRATORY EXAMINATION: Clear to auscultation bilaterally ABDOMINAL EXAMINATION: Soft, nontender NEUROLOGICAL EXAMINATION: Awake, alert, answering questions appropriately LABORATORY DATA: Please see below. IMAGING: None ACTIVITY: As tolerated DIET: 1800 carbohydrate consistent DISCHARGE PLAN: Patient will be discharged home today. Outpatient follow-up with his primary care provider in one week. Advised him to take his fingersticks reading for follow-up appointment to assist with further titration of insulin regimen. Home nursing to be arranged for. Outpatient follow-up with his oncologist her previous appointment. DISPOSITION: Home with home health DISCHARGE CONDITION: Stable. TIME SPENT ON DISCHARGE: 37 minutes. Vital Signs/I&Os Vital Signs Date Time Temp Pulse Resp B/P (MAP) Pulse Ox O2 Delivery O2 Flow Rate FiO2 12/26/18 10:20 76 132/84 12/26/18 10:00 98.6 19 96 12/26/18 01:13 Room Air I&O- Last 24 Hours up to 6 AM 12/26/18 05:59 Intake Total 500 ml Balance 500 ml Laboratory Data Labs 24H Laboratory Tests 2 12/25/18 20:05: Immature Granulocyte % (Auto) 1.4, White Blood Count 10.4H, Red Blood Count 4.47, Hemoglobin 13.9, Hematocrit 39.7L, Mean Corpuscular Volume 88.8, Mean Corpuscular Hemoglobin 31.1, Mean Corpuscular Hemoglobin Concent 35.0, Red Cell Distribution Width 13.9, Platelet Count 229, Neutrophils (%) (Auto) 86.1H, Lymphocytes (%) (Auto) 9.1L, Monocytes (%) (Auto) 3.1, Eosinophils (%) (Auto) 0.1, Basophils (%) (Auto) 0.2, Neutrophils # (Auto) 9.0H, Lymphocytes # (Auto) 1.0L, Monocytes # (Auto) 0.3, Eosinophils # (Auto) 0.0, Basophils # (Auto) 0.0, Nucleated Red Blood Cells % (auto) 0.0, Blood Gas Bicarbonate Standard 23.5, Venous Blood pH 7.374, Venous Blood Partial Pressure CO2 42.9, Venous Blood Partial Pressure O2 54.6H, Venous Blood Total Carbon Dioxide 25.8, Venous Blood HCO3 24.5, Venous Blood Oxygen Saturation 87.5H, Venous Blood Base Excess -0.9, Anion Gap 8, Glomerular Filtration Rate 49.3, Estimated Mean Plasma Glucose 258H, Hemoglobin A1c 10.6, Osmolality 291, Calcium Level 9.1, Phosphorus Level 2.6, Magnesium Level 1.9, Aspartate Amino Transf (AST/SGOT) 28, Alanine Aminotransferase (ALT/SGPT) 78, Alkaline Phosphatase 115, Total Bilirubin 0.4, Direct Bilirubin < 0.1, Total Creatine Kinase 25L, Creatine Kinase MB < 1.0, Creatine Kinase MB Relative Index 4.00, Troponin I < 0.02, Total Protein 6.4, Albumin 3.8, Albumin/Globulin Ratio 1.46, Lipase 198, B-Hydroxybutyrate 2.36 12/25/18 20:08: Urine Color STRAW, Urine Appearance CLEAR, Urine pH 5.0, Urine Specific [place] 1.031, Urine Protein NEGATIVE, Urine Glucose (UA) 3+H, Urine Ketones NEGATIVE, Urine Blood NEGATIVE, Urine Nitrite NEGATIVE, Urine Bilirubin NEGATIVE, Urine Urobilinogen 0.2, Urine Leukocyte Esterase NEGATIVE, Urine WBC (Auto) 0, Urine RBC (Auto) 1, Urine Hyaline Casts (Auto) 0, Urine Bacteria (Auto) NEGATIVE, Urine Squamous Epithelial Cells 0, Urine Sperm (Auto) 12/25/18 21:40: Bedside Glucose (Misc Panel) 393H 12/26/18 01:42: Bedside Glucose (Misc Panel) 245H 12/26/18 05:44: Nucleated Red Blood Cells % (auto) 0.0, Anion Gap 7L, Glomerular Filtration Rate > 60.0, Blood Urea Nitrogen 18, Creatinine 1.17, Sodium Level 138, Potassium Level 4.1, Chloride Level 104, Carbon Dioxide Level 27, Calcium Level 8.4L, Aspartate Amino Transf (AST/SGOT) 18, Alanine Aminotransferase (ALT/SGPT) 58, Alkaline Phosphatase 84, Total Bilirubin 0.3, Total Protein 5.5L, Albumin 3.0#L, Albumin/Globulin Ratio 1.20 12/26/18 11:43: Bedside Glucose (Misc Panel) 163H CBC/BMP Laboratory Tests 12/25/18 20:05 Red Blood Count 4.47, Mean Corpuscular Volume 88.8, Mean Corpuscular Hemoglobin 31.1, Mean Corpuscular Hemoglobin Concent 35.0, Red Cell Distribution Width 13.9, Neutrophils (%) (Auto) 86.1 H, Lymphocytes (%) (Auto) 9.1 L, Monocytes (%) (Auto) 3.1, Eosinophils (%) (Auto) 0.1, Basophils (%) (Auto) 0.2, Neutrophils # (Auto) 9.0 H, Lymphocytes # (Auto) 1.0 L, Monocytes # (Auto) 0.3, Eosinophils # (Auto) 0.0, Basophils # (Auto) 0.0 12/26/18 05:44 Red Blood Count 4.26 L, Mean Corpuscular Volume 88.7, Mean Corpuscular Hemoglobin 30.5, Mean Corpuscular Hemoglobin Concent 34.4, Red Cell Distribution Width 14.0, Calcium Level 8.4 L, Aspartate Amino Transf (AST/SGOT) 18, Alanine Aminotransferase (ALT/SGPT) 58, Alkaline Phosphatase 84, Total Bilirubin 0.3, Total Protein 5.5 L, Albumin 3.0 #L FSBS Laboratory Tests Test 12/25/18 21:40 12/26/18 01:42 12/26/18 11:43 Range/Units Bedside Glucose (Misc Panel) 393 245 163 80-115 MG/DL Discharge Medications Scheduled (Acyclovir) 200 Mg Cap, 400 MG PO BID, (Reported) (Lidocaine/Prilocaine 2.5-2.5 %) 1 Cre Cre, 1 CRE EXT ASDIRECTED, (Reported) USES AROUND PORT PRIOR TO APPOINTMENTS (Freestyle Lite Test Strip) 1 Emerson Emerson, 1 EMERSON ACHS Use to test fingerstick glucose before meals and at bedtime as advised Aspirin (Aspirin EC) 81 Mg Tabec, 81 MG PO DAILY, (Reported) Cetirizine HCl (Cetirizine HCl) 10 Mg Tab, 10 MG PO BID, (Reported) Docusate Sodium (Docusate Sodium) 100 Mg Cap, 100 MG PO BID, (Reported) Enoxaparin Sodium (Enoxaparin Sodium) 30 Mg/0.3 Ml Inj, 30 MG SC DAILY, (Reported) TAKES WITH 100MG FOR 130MG TOTAL Enoxaparin Sodium (Enoxaparin Sodium) 100 Mg/Ml Inj, 100 MG SC DAILY, (Reported) TAKES WITH 30MG FOR 130MG TOTAL Fluconazole (Fluconazole) 100 Mg Tab, 200 MG PO QPM, (Reported) TAKES AT DINNERTIME Fluticasone/Vilanterol (Breo Ellipta 200-25 Mcg/INH) 1 Inh Inh, 2 PUFFS INH DAILY, (Reported) Hydroxyzine HCl (Hydroxyzine HCl) 25 Mg Tab, 50 MG PO QHS, (Reported) Insulin Aspart (Novolog Flexpen) 100 Unit/Ml Inj, 0-8 UNITS SC ACHS Per sliding scale. 0-250: none, 250-300: 2 units, 301-350: 4 units, 351-400: 6 units, >400: 8 units Insulin Detemir (Levemir) 1 Units/0.01 Ml Susp, 10 UNITS SC QHS Metoprolol Tartrate (Metoprolol Tartrate) 25 Mg Tab, 25 MG PO BID, (Reported) Mirabegron Base (Myrbetriq) 25 Mg Tab, 25 MG PO DAILY, (Reported) Pantoprazole Sodium (Pantoprazole Sodium) 40 Mg Tab, 40 MG PO BID, (Reported) Prednisone (Prednisone) 10 Mg Tab, 20 MG PO DAILY, (Reported) TOOK 30MG FOR 12/25/18 DOSE BUT DOCTORS LOWERED DOSE TO 20MG FOR FUTURE DOSES Tacrolimus (Tacrolimus) 0.5 Mg Cap, 0.5 MG PO BID, (Reported) Triamcinolone Acet (Triamcinolone Acetonide 0.1% Oint) 1 Dose/80 Gm Oint, 1 DOSE TOP DAILY, (Reported) USES UNDER ABDOMINAL FOLDS Trimethoprim/Sulfamethoxazole (Bactrim Ds 800-160 mg) 1 Tab Tab, 1 TAB PO 3XW, (Reported) TAKES MONDAY, MONDAY AND MONDAY Scheduled PRN Albuterol Sulfate (Proair Hfa) 108 Mcg/Act Aer, 2 PUFF INH Q4H PRN for SHORTNESS OF BREATH, (Reported) Rizatriptan Benzoate (Maxalt-Heavy Cleaner) 10 Mg Tab, 10 MG PO BID PRN for MIGRAINE, (Reported) Allergies Coded Allergies: erythromycin base (Verified Allergy, Severe, HIVES, DIFFICULTY, 12/21/18) NIKKI OVIEDO MD Dec 26, 2018 12:27
[2018-12-26] MEDS ORDERED: LEVEMIR (INSULIN DETEMIR) 1 UNITS/0.01ML SC SCH (21:00)
== END 2018-12-26 15:00 | disposition home health service (06) ==
LOC: M ED 18:02 → M ED INP 23:45 → M MSPAV 12-26 01:19
PROVIDERS: ADMIT Student in an Organized Health Care Education/Training Program; ATTEND Internal Medicine
DX: E11.9 Type 2 diabetes mellitus without complications (principal); Z79.4 Long term (current) use of insulin; I82.491 Acute embolism and thrombosis of other specified deep vein of right lower extremity; Z79.01 Long term (current) use of anticoagulants; C83.10 Mantle cell lymphoma, unspecified site; I10 Essential (primary) hypertension; Z79.52 Long term (current) use of systemic steroids; Z79.82 Long term (current) use of aspirin; Z79.899 Other long term (current) drug therapy
CPT/HCPCS: 36415; 80048; 80053; 80076; 81001; 82010; 82550; 82553; 82803; 83036; 83690; 83735; 83930; 84100; 84484; 85025; 85027; 96360; 96361; 96372; 99284; G0378; J1650

== ENCOUNTER → 2019-01-04 | Outpatient (REF) | payer MEDICARE, OTHER ==
[~2019-01-04] MED LIST changes: +ALCOPAD22 XX; +ASPI81TAEC PO; +CETI10TA PO; +CETI1SYP16 PO; +COLA100C5 PO; +DOCU100C16 PO; +FREEMIS42 TOP; +FREETES VI; +INSUDET SC; +LIDO2.5C15 EXT; +NOVOINJ3 SC; +TRIA1OI80 TOP; +[UNRECOGNIZED DRUG - CODE] SC; +[UNRECOGNIZED DRUG - CODE] XX
[2019-01-04 12:58] LABS: ALBUMIN 3.4 GM/DL (3.2-5.2); ALT/SGPT 34 U/L (12-78); BILIRUBIN,TOTAL 0.3 MG/DL (0.2-1.0); BLOOD UREA NITROGEN 20 MG/DL (7-18); CALCIUM LEVEL 8.4 MG/DL (8.8-10.2); CARBON DIOXIDE LEVEL 26 MEQ/L (21-32); CHLORIDE LEVEL 105 MEQ/L (98-107); GLOMERULAR FILTRATION RATE > 60.0 (>49); GLUCOSE, FASTING 300 MG/DL (70-100); LDH LACTATE DEHYDROGENASE 207 U/L (87-241); MAGNESIUM LEVEL 1.8 MG/DL (1.8-2.4); POTASSIUM SERUM 4.2 MEQ/L (3.5-5.1); SODIUM LEVEL 139 MEQ/L (136-145); TOTAL PROTEIN 5.9 GM/DL (6.4-8.2)
== END ==
LOC: M LAB REF 11:24
PROVIDERS: ATTEND Internal Medicine Hematology
DX: Z94.81 Bone marrow transplant status (principal)

== ENCOUNTER → 2019-01-16 | Outpatient (REF) | payer MEDICARE, OTHER ==
[2019-01-16 11:14] LABS: BASO % 0.5 % (0.0-1.0); EOS # 0.2 10^3/uL (0.0-0.50); EOS % 2.6 % (0.0-3.0); HEMATOCRIT 40.1 % (42.0-52.0); HEMOGLOBIN 13.3 g/dl (13.5-17.5); LYMPH # 1.8 10^3/uL (1.5-4.5); LYMPH % 27.3 % (24.0-44.0); MEAN CORPUSCULAR HEMOGLOBIN 30.4 pg (27.0-33.0); MEAN CORPUSCULAR HGB CONC 33.2 g/dl (32.0-36.5); MEAN CORPUSCULAR VOLUME 91.8 fl (80.0-96.0); MONO # 0.7 10^3/uL (0.0-0.8); MONO % 10.1 % (0.0-5.0); NEUTROPHILS # 3.8 10^3/uL (1.8-7.7); NEUTROPHILS % 58.4 % (36.0-66.0); PLATELET COUNT, AUTOMATED 223 10^3/uL (150-450); RED BLOOD COUNT 4.37 10^6/uL (4.30-6.10); WHITE BLOOD COUNT 6.4 10^3/uL (4.0-10.0)
[2019-01-16 11:44] LABS: ALBUMIN 3.3 GM/DL (3.2-5.2); ALT/SGPT 41 U/L (12-78); BILIRUBIN,TOTAL 0.4 MG/DL (0.2-1.0); BLOOD UREA NITROGEN 17 MG/DL (7-18); CALCIUM LEVEL 8.6 MG/DL (8.8-10.2); CARBON DIOXIDE LEVEL 25 MEQ/L (21-32); CHLORIDE LEVEL 106 MEQ/L (98-107); CREATININE FOR GFR 1.09 MG/DL (0.70-1.30); GLOMERULAR FILTRATION RATE > 60.0 (>49); GLUCOSE, FASTING 225 MG/DL (70-100); LDH LACTATE DEHYDROGENASE 189 U/L (87-241); MAGNESIUM LEVEL 1.7 MG/DL (1.8-2.4); POTASSIUM SERUM 3.9 MEQ/L (3.5-5.1); SODIUM LEVEL 141 MEQ/L (136-145)
== END ==
LOC: M LAB REF 07:41
PROVIDERS: ATTEND Internal Medicine Hematology
DX: Z94.81 Bone marrow transplant status (principal)

== ENCOUNTER → 2019-01-25 | Outpatient (REF) | payer MEDICARE, OTHER ==
[~2019-01-25] MED LIST changes: +JANU100T PO; +LANTINJ4 SC
[2019-01-25 10:13] LABS: BASO # 0.1 10^3/uL (0.0-0.2); BASO % 0.8 % (0.0-1.0); EOS # 0.2 10^3/uL (0.0-0.50); EOS % 3.4 % (0.0-3.0); HEMOGLOBIN 12.7 g/dl (13.5-17.5); LYMPH # 1.6 10^3/uL (1.5-4.5); LYMPH % 24.1 % (24.0-44.0); MEAN CORPUSCULAR HEMOGLOBIN 30.4 pg (27.0-33.0); MEAN CORPUSCULAR HGB CONC 32.6 g/dl (32.0-36.5); MEAN CORPUSCULAR VOLUME 93.3 fl (80.0-96.0); MONO # 0.7 10^3/uL (0.0-0.8); NEUTROPHILS % 61.1 % (36.0-66.0); PLATELET COUNT, AUTOMATED 252 10^3/uL (150-450); RED BLOOD COUNT 4.18 10^6/uL (4.30-6.10); WHITE BLOOD COUNT 6.5 10^3/uL (4.0-10.0)
[2019-01-25 11:40] LABS: ALBUMIN 3.5 GM/DL (3.2-5.2); BILIRUBIN,TOTAL 0.4 MG/DL (0.2-1.0); CALCIUM LEVEL 8.7 MG/DL (8.8-10.2); CREATININE FOR GFR 1.4 MG/DL (0.70-1.30); GLOMERULAR FILTRATION RATE 54.7 (>49); PHOSPHORUS LEVEL 4.7 MG/DL (2.5-4.9); POTASSIUM SERUM 4.1 MEQ/L (3.5-5.1)
== END ==
LOC: M LAB REF 09:06
PROVIDERS: ATTEND Internal Medicine Hematology
DX: Z94.81 Bone marrow transplant status (principal)
CPT/HCPCS: 80053; 83615; 84100; 85025; J1642

== ENCOUNTER → 2019-02-12 | Outpatient (REF) | payer MEDICARE, OTHER ==
[2019-02-12 12:02] LABS: BASO # 0.1 10^3/uL (0.0-0.2); BASO % 0.7 % (0.0-1.0); EOS # 0.4 10^3/uL (0.0-0.50); EOS % 5.6 % (0.0-3.0); HEMATOCRIT 37.8 % (42.0-52.0); HEMOGLOBIN 12.7 g/dl (13.5-17.5); LYMPH # 1.2 10^3/uL (1.5-4.5); LYMPH % 17.3 % (24.0-44.0); MEAN CORPUSCULAR HEMOGLOBIN 32.2 pg (27.0-33.0); MEAN CORPUSCULAR HGB CONC 33.6 g/dl (32.0-36.5); MEAN CORPUSCULAR VOLUME 95.7 fl (80.0-96.0); MONO # 0.6 10^3/uL (0.0-0.8); MONO % 8.6 % (0.0-5.0); NEUTROPHILS # 4.5 10^3/uL (1.8-7.7); NEUTROPHILS % 66.6 % (36.0-66.0); PLATELET COUNT, AUTOMATED 244 10^3/uL (150-450); RED BLOOD COUNT 3.95 10^6/uL (4.30-6.10); WHITE BLOOD COUNT 6.8 10^3/uL (4.0-10.0)
[2019-02-12 12:57] LABS: ALBUMIN 3.4 GM/DL (3.2-5.2); ALT/SGPT 69 U/L (12-78); BILIRUBIN,TOTAL 0.3 MG/DL (0.2-1.0); BLOOD UREA NITROGEN 16 MG/DL (7-18); CALCIUM LEVEL 8.9 MG/DL (8.8-10.2); CARBON DIOXIDE LEVEL 27 MEQ/L (21-32); CHLORIDE LEVEL 109 MEQ/L (98-107); GLOMERULAR FILTRATION RATE > 60.0 (>49); GLUCOSE, FASTING 180 MG/DL (70-100); LDH LACTATE DEHYDROGENASE 228 U/L (87-241); MAGNESIUM LEVEL 1.7 MG/DL (1.8-2.4); POTASSIUM SERUM 3.6 MEQ/L (3.5-5.1); SODIUM LEVEL 143 MEQ/L (136-145); TOTAL PROTEIN 5.9 GM/DL (6.4-8.2)
== END ==
LOC: M LAB REF 11:42
PROVIDERS: ATTEND Internal Medicine Hematology
DX: Z94.81 Bone marrow transplant status (principal)

== ENCOUNTER → 2019-03-12 | Outpatient (REF) | payer MEDICARE, OTHER ==
[2019-03-12 11:01] LABS: BASO # 0.1 10^3/uL (0.0-0.2); BASO % 0.7 % (0.0-1.0); EOS # 0.3 10^3/uL (0.0-0.50); EOS % 3.5 % (0.0-3.0); HEMATOCRIT 41.4 % (42.0-52.0); HEMOGLOBIN 13.7 g/dl (13.5-17.5); LYMPH # 1.5 10^3/uL (1.5-4.5); LYMPH % 19.9 % (24.0-44.0); MEAN CORPUSCULAR HEMOGLOBIN 31.1 pg (27.0-33.0); MEAN CORPUSCULAR HGB CONC 33.1 g/dl (32.0-36.5); MEAN CORPUSCULAR VOLUME 94.1 fl (80.0-96.0); MONO # 0.8 10^3/uL (0.0-0.8); MONO % 10.1 % (0.0-5.0); NEUTROPHILS # 4.8 10^3/uL (1.8-7.7); NEUTROPHILS % 65.1 % (36.0-66.0); PLATELET COUNT, AUTOMATED 226 10^3/uL (150-450); WHITE BLOOD COUNT 7.4 10^3/uL (4.0-10.0)
[2019-03-12 11:26] LABS: ALBUMIN 3.6 GM/DL (3.2-5.2); ALT/SGPT 43 U/L (12-78); BILIRUBIN,TOTAL 0.3 MG/DL (0.2-1.0); BLOOD UREA NITROGEN 22 MG/DL (7-18); CALCIUM LEVEL 8.8 MG/DL (8.8-10.2); CARBON DIOXIDE LEVEL 28 MEQ/L (21-32); CHLORIDE LEVEL 109 MEQ/L (98-107); CREATININE FOR GFR 1.18 MG/DL (0.70-1.30); GLOMERULAR FILTRATION RATE > 60.0 (>49); GLUCOSE, FASTING 78 MG/DL (70-100); LDH LACTATE DEHYDROGENASE 204 U/L (87-241); MAGNESIUM LEVEL 1.7 MG/DL (1.8-2.4); POTASSIUM SERUM 3.9 MEQ/L (3.5-5.1); SODIUM LEVEL 143 MEQ/L (136-145); TOTAL PROTEIN 6.2 GM/DL (6.4-8.2)
== END ==
LOC: M LAB REF 10:43
PROVIDERS: ATTEND Internal Medicine Hematology
DX: Z94.81 Bone marrow transplant status (principal)
CPT/HCPCS: 80053; 83615; 83735; 85025; J1642

== ENCOUNTER → 2019-04-09 | Outpatient (REF) | payer MEDICARE, OTHER ==
[2019-04-09 13:45] LABS: BASO % 0.5 % (0.0-1.0); EOS # 0.5 10^3/uL (0.0-0.50); EOS % 8.5 % (0.0-3.0); HEMATOCRIT 40.8 % (42.0-52.0); HEMOGLOBIN 13.7 g/dl (13.5-17.5); LYMPH # 1.1 10^3/uL (1.5-4.5); LYMPH % 17.1 % (24.0-44.0); MEAN CORPUSCULAR HEMOGLOBIN 31.4 pg (27.0-33.0); MEAN CORPUSCULAR HGB CONC 33.6 g/dl (32.0-36.5); MEAN CORPUSCULAR VOLUME 93.6 fl (80.0-96.0); MONO # 0.5 10^3/uL (0.0-0.8); MONO % 8.6 % (0.0-5.0); NEUTROPHILS # 4.1 10^3/uL (1.8-7.7); PLATELET COUNT, AUTOMATED 225 10^3/uL (150-450); RED BLOOD COUNT 4.36 10^6/uL (4.30-6.10); WHITE BLOOD COUNT 6.3 10^3/uL (4.0-10.0)
[2019-04-09 14:13] LABS: ALBUMIN 3.5 GM/DL (3.2-5.2); ALT/SGPT 74 U/L (12-78); BILIRUBIN,TOTAL 0.3 MG/DL (0.2-1.0); BLOOD UREA NITROGEN 15 MG/DL (7-18); CALCIUM LEVEL 9.2 MG/DL (8.8-10.2); CARBON DIOXIDE LEVEL 28 MEQ/L (21-32); CHLORIDE LEVEL 112 MEQ/L (98-107); CREATININE FOR GFR 1.28 MG/DL (0.70-1.30); GLOMERULAR FILTRATION RATE > 60.0 (>49); GLUCOSE, FASTING 146 MG/DL (70-100); LDH LACTATE DEHYDROGENASE 206 U/L (87-241); MAGNESIUM LEVEL 1.7 MG/DL (1.8-2.4); POTASSIUM SERUM 3.7 MEQ/L (3.5-5.1); SODIUM LEVEL 146 MEQ/L (136-145); TOTAL PROTEIN 6.2 GM/DL (6.4-8.2)
== END ==
LOC: M LAB REF 10:52
PROVIDERS: ATTEND Internal Medicine Hematology
DX: Z94.81 Bone marrow transplant status (principal)
CPT/HCPCS: 80053; 83615; 83735; 85025; J1642

== ENCOUNTER → 2019-06-13 | Outpatient (REF) | payer MEDICARE, OTHER ==
[~2019-06-13] MED LIST changes: +FOLGTAB5 PO
[2019-06-13 12:06] LABS: BASO # 0.1 10^3/uL (0.0-0.2); EOS # 1.1 10^3/uL (0.0-0.5); EOS % 12.8 % (0.0-3.0); HEMATOCRIT 43.2 % (42.0-52.0); HEMOGLOBIN 14.3 g/dl (13.5-17.5); LYMPH # 1.3 10^3/uL (1.5-5.0); LYMPH % 15.3 % (24.0-44.0); MEAN CORPUSCULAR HEMOGLOBIN 30.2 pg (27.0-33.0); MEAN CORPUSCULAR HGB CONC 33.1 g/dl (32.0-36.5); MEAN CORPUSCULAR VOLUME 91.1 fl (80.0-96.0); MONO # 0.8 10^3/uL (0.0-0.8); MONO % 8.8 % (0.0-5.0); NEUTROPHILS # 5.3 10^3/uL (1.5-8.5); NEUTROPHILS % 61.6 % (36.0-66.0); PLATELET COUNT, AUTOMATED 234 10^3/uL (150-450); RED BLOOD COUNT 4.74 10^6/uL (4.30-6.10); WHITE BLOOD COUNT 8.6 10^3/uL (4.0-10.0)
[2019-06-13 13:36] LABS: ALBUMIN 3.7 GM/DL (3.2-5.2); ALT/SGPT 94 U/L (12-78); BILIRUBIN,TOTAL 0.4 MG/DL (0.2-1.0); BLOOD UREA NITROGEN 18 MG/DL (7-18); CARBON DIOXIDE LEVEL 27 MEQ/L (21-32); CHLORIDE LEVEL 108 MEQ/L (98-107); CREATININE FOR GFR 1.27 MG/DL (0.70-1.30); GLOMERULAR FILTRATION RATE > 60.0 (>49); GLUCOSE, FASTING 109 MG/DL (70-100); LDH LACTATE DEHYDROGENASE 207 U/L (87-241); MAGNESIUM LEVEL 1.9 MG/DL (1.8-2.4); POTASSIUM SERUM 4.2 MEQ/L (3.5-5.1); SODIUM LEVEL 144 MEQ/L (136-145); TOTAL PROTEIN 5.9 GM/DL (6.4-8.2)
== END ==
LOC: M LAB REF 11:26
PROVIDERS: ATTEND Internal Medicine Hematology
DX: Z94.81 Bone marrow transplant status (principal)
CPT/HCPCS: 80053; 83615; 83735; 85025; J1642

== ENCOUNTER → 2019-07-11 | Outpatient (REF) | payer MEDICARE, OTHER ==
[2019-07-11 13:36] LABS: BASO % 0.4 % (0.0-1.0); EOS # 0.2 10^3/uL (0.0-0.5); EOS % 2.8 % (0.0-3.0); HEMATOCRIT 42.7 % (42.0-52.0); HEMOGLOBIN 14.2 g/dl (13.5-17.5); LYMPH # 0.9 10^3/uL (1.5-5.0); LYMPH % 10.3 % (24.0-44.0); MEAN CORPUSCULAR HEMOGLOBIN 30.7 pg (27.0-33.0); MEAN CORPUSCULAR HGB CONC 33.3 g/dl (32.0-36.5); MEAN CORPUSCULAR VOLUME 92.2 fl (80.0-96.0); MONO # 0.6 10^3/uL (0.0-0.8); MONO % 6.5 % (0.0-5.0); NEUTROPHILS # 6.8 10^3/uL (1.5-8.5); NEUTROPHILS % 79.4 % (36.0-66.0); PLATELET COUNT, AUTOMATED 227 10^3/uL (150-450); RED BLOOD COUNT 4.63 10^6/uL (4.30-6.10); WHITE BLOOD COUNT 8.6 10^3/uL (4.0-10.0)
[2019-07-11 14:10] LABS: ALBUMIN 3.5 GM/DL (3.2-5.2); BILIRUBIN,TOTAL 0.4 MG/DL (0.2-1.0); CALCIUM LEVEL 8.8 MG/DL (8.8-10.2); CREATININE FOR GFR 1.48 MG/DL (0.70-1.30); GLOMERULAR FILTRATION RATE 51.3 (>49); MAGNESIUM LEVEL 1.6 MG/DL (1.8-2.4); POTASSIUM SERUM 3.9 MEQ/L (3.5-5.1); TOTAL PROTEIN 6.1 GM/DL (6.4-8.2)
== END ==
LOC: M LAB REF 11:21
PROVIDERS: ATTEND Internal Medicine Hematology
DX: Z94.81 Bone marrow transplant status (principal)

== ENCOUNTER → 2019-11-14 | Outpatient (REF) | payer MEDICARE, OTHER ==
[~2019-11-14] MED LIST changes: +MAGN300C PO
[2019-11-14 11:46] LABS: BASO % 0.5 % (0.0-1.0); EOS # 0.4 10^3/uL (0.0-0.5); EOS % 5.5 % (0.0-3.0); HEMATOCRIT 41.5 % (42.0-52.0); HEMOGLOBIN 13.8 g/dl (13.5-17.5); LYMPH # 1.4 10^3/uL (1.5-5.0); LYMPH % 17.7 % (24.0-44.0); MEAN CORPUSCULAR HEMOGLOBIN 29.7 pg (27.0-33.0); MEAN CORPUSCULAR HGB CONC 33.3 g/dl (32.0-36.5); MEAN CORPUSCULAR VOLUME 89.4 fl (80.0-96.0); MONO # 0.7 10^3/uL (0.0-0.8); MONO % 9.1 % (0.0-5.0); NEUTROPHILS # 5.2 10^3/uL (1.5-8.5); NEUTROPHILS % 66.8 % (36.0-66.0); PLATELET COUNT, AUTOMATED 215 10^3/uL (150-450); RED BLOOD COUNT 4.64 10^6/uL (4.30-6.10); WHITE BLOOD COUNT 7.8 10^3/uL (4.0-10.0)
[2019-11-14 12:14] LABS: ALBUMIN 3.6 GM/DL (3.2-5.2); BILIRUBIN,TOTAL 0.5 MG/DL (0.2-1.0); CALCIUM LEVEL 8.4 MG/DL (8.8-10.2); CREATININE FOR GFR 1.31 MG/DL (0.70-1.30); POTASSIUM SERUM 3.9 MEQ/L (3.5-5.1); TOTAL PROTEIN 6.3 GM/DL (6.4-8.2)
== END ==
LOC: M LAB REF 10:46
PROVIDERS: ATTEND Nurse Practitioner Acute Care
DX: Z94.81 Bone marrow transplant status (principal); D89.813 Graft-versus-host disease, unspecified

== ENCOUNTER → 2019-12-06 | Outpatient (REF) | payer MEDICARE, OTHER ==
[2019-12-06 12:11] LABS: BASO % 0.6 % (0.0-1.0); EOS # 0.3 10^3/uL (0.0-0.5); EOS % 4.4 % (0.0-3.0); HEMATOCRIT 41.4 % (42.0-52.0); HEMOGLOBIN 14.3 g/dl (13.5-17.5); LYMPH # 1.5 10^3/uL (1.5-5.0); LYMPH % 22.2 % (24.0-44.0); MEAN CORPUSCULAR HEMOGLOBIN 30.4 pg (27.0-33.0); MEAN CORPUSCULAR HGB CONC 34.5 g/dl (32.0-36.5); MEAN CORPUSCULAR VOLUME 88.1 fl (80.0-96.0); MONO # 0.7 10^3/uL (0.0-0.8); MONO % 9.9 % (0.0-5.0); NEUTROPHILS # 4.3 10^3/uL (1.5-8.5); NEUTROPHILS % 62.8 % (36.0-66.0); PLATELET COUNT, AUTOMATED 213 10^3/uL (150-450); WHITE BLOOD COUNT 6.8 10^3/uL (4.0-10.0)
[2019-12-06 12:38] LABS: ALBUMIN 3.4 GM/DL (3.2-5.2); ALT/SGPT 33 U/L (12-78); BILIRUBIN,TOTAL 0.5 MG/DL (0.2-1.0); BLOOD UREA NITROGEN 16 MG/DL (7-18); CALCIUM LEVEL 8.9 MG/DL (8.8-10.2); CARBON DIOXIDE LEVEL 29 MEQ/L (21-32); CHLORIDE LEVEL 108 MEQ/L (98-107); CREATININE FOR GFR 1.24 MG/DL (0.70-1.30); GLOMERULAR FILTRATION RATE > 60.0 (>49); GLUCOSE, FASTING 151 MG/DL (70-100); POTASSIUM SERUM 3.7 MEQ/L (3.5-5.1); SODIUM LEVEL 142 MEQ/L (136-145); TOTAL PROTEIN 6.2 GM/DL (6.4-8.2)
== END ==
LOC: M LAB REF 11:57
PROVIDERS: ATTEND Nurse Practitioner Acute Care
DX: Z94.81 Bone marrow transplant status (principal); D89.813 Graft-versus-host disease, unspecified

== ENCOUNTER → 2020-01-16 | Outpatient (REF) | payer MEDICARE, OTHER ==
[2020-01-16 15:03] LABS: BASO % 0.5 % (0.0-1.0); EOS # 0.3 10^3/uL (0.0-0.5); EOS % 3.2 % (0.0-3.0); HEMATOCRIT 41.3 % (42.0-52.0); HEMOGLOBIN 14.2 g/dl (13.5-17.5); LYMPH # 1.2 10^3/uL (1.5-5.0); MEAN CORPUSCULAR HEMOGLOBIN 30.3 pg (27.0-33.0); MEAN CORPUSCULAR HGB CONC 34.4 g/dl (32.0-36.5); MEAN CORPUSCULAR VOLUME 88.1 fl (80.0-96.0); MONO # 0.6 10^3/uL (0.0-0.8); MONO % 7.2 % (0.0-5.0); NEUTROPHILS # 6.5 10^3/uL (1.5-8.5); NEUTROPHILS % 74.6 % (36.0-66.0); PLATELET COUNT, AUTOMATED 216 10^3/uL (150-450); RED BLOOD COUNT 4.69 10^6/uL (4.30-6.10); WHITE BLOOD COUNT 8.7 10^3/uL (4.0-10.0)
[2020-01-16 15:27] LABS: ALBUMIN 3.5 GM/DL (3.2-5.2); ALT/SGPT 32 U/L (12-78); BILIRUBIN,TOTAL 0.6 MG/DL (0.2-1.0); BLOOD UREA NITROGEN 16 MG/DL (7-18); CALCIUM LEVEL 9.2 MG/DL (8.8-10.2); CARBON DIOXIDE LEVEL 30 MEQ/L (21-32); CHLORIDE LEVEL 107 MEQ/L (98-107); CREATININE FOR GFR 1.22 MG/DL (0.70-1.30); GLOMERULAR FILTRATION RATE > 60.0 (>49); GLUCOSE, FASTING 137 MG/DL (70-100); SODIUM LEVEL 140 MEQ/L (136-145); TOTAL PROTEIN 6.7 GM/DL (6.4-8.2)
== END ==
LOC: M LAB REF 14:22
PROVIDERS: ATTEND Nurse Practitioner Acute Care
DX: Z94.81 Bone marrow transplant status (principal); D89.813 Graft-versus-host disease, unspecified

== ENCOUNTER → 2020-02-24 | Outpatient (REF) | payer MEDICARE, OTHER ==
[2020-02-24 10:54] LABS: BASO % 0.6 % (0.0-1.0); EOS # 0.4 10^3/uL (0.0-0.5); EOS % 5.4 % (0.0-3.0); HEMATOCRIT 41.3 % (42.0-52.0); LYMPH # 1.6 10^3/uL (1.5-5.0); LYMPH % 22.2 % (24.0-44.0); MEAN CORPUSCULAR HGB CONC 33.9 g/dl (32.0-36.5); MEAN CORPUSCULAR VOLUME 88.6 fl (80.0-96.0); MONO # 0.6 10^3/uL (0.0-0.8); NEUTROPHILS # 4.4 10^3/uL (1.5-8.5); NEUTROPHILS % 62.5 % (36.0-66.0); PLATELET COUNT, AUTOMATED 218 10^3/uL (150-450); RED BLOOD COUNT 4.66 10^6/uL (4.30-6.10); WHITE BLOOD COUNT 7.1 10^3/uL (4.0-10.0)
[2020-02-24 11:32] LABS: ALBUMIN 3.6 GM/DL (3.2-5.2); ALT/SGPT 31 U/L (12-78); BILIRUBIN,TOTAL 0.8 MG/DL (0.2-1.0); BLOOD UREA NITROGEN 13 MG/DL (7-18); CALCIUM LEVEL 8.5 MG/DL (8.8-10.2); CARBON DIOXIDE LEVEL 28 MEQ/L (21-32); CHLORIDE LEVEL 108 MEQ/L (98-107); CREATININE FOR GFR 1.22 MG/DL (0.70-1.30); GLOMERULAR FILTRATION RATE > 60.0 (>49); GLUCOSE, FASTING 110 MG/DL (70-100); POTASSIUM SERUM 3.9 MEQ/L (3.5-5.1); SODIUM LEVEL 140 MEQ/L (136-145); TOTAL PROTEIN 6.4 GM/DL (6.4-8.2)
== END ==
LOC: M LAB REF 10:40
PROVIDERS: ATTEND Nurse Practitioner Acute Care
DX: Z94.81 Bone marrow transplant status (principal); D89.813 Graft-versus-host disease, unspecified

== ENCOUNTER → 2020-05-12 | Outpatient (REF) | payer MEDICARE, OTHER ==
[~2020-05-12] MED LIST changes: +PANT40TA29 PO; -PANT40TA3 PO
[2020-06-22 12:48] LABS: CMV QUANT DNA PCR (PLASMA) SEE SEPARATE REPORT; log10 CMV QN DNA P1 SEE SEPARATE REPORT
[2020-07-29 09:17] LABS: BASO # 0.1 10^3/uL (0.0-0.2); BASO % 0.6 % (0.0-1.0); EOS # 0.2 10^3/uL (0.0-0.5); EOS % 2.7 % (0.0-3.0); HEMATOCRIT 42.7 % (42.0-52.0); HEMOGLOBIN 14.4 g/dl (13.5-17.5); LYMPH # 1.5 10^3/uL (1.5-5.0); LYMPH % 16.3 % (24.0-44.0); MEAN CORPUSCULAR HEMOGLOBIN 30.4 pg (27.0-33.0); MEAN CORPUSCULAR HGB CONC 33.7 g/dl (32.0-36.5); MEAN CORPUSCULAR VOLUME 90.1 fl (80.0-96.0); MONO # 0.7 10^3/uL (0.0-0.8); MONO % 8.1 % (0.0-5.0); NEUTROPHILS # 6.5 10^3/uL (1.5-8.5); PLATELET COUNT, AUTOMATED 197 10^3/uL (150-450); RED BLOOD COUNT 4.74 10^6/uL (4.30-6.10)
[2020-08-01 08:31] LABS: ALBUMIN 3.5 GM/DL (3.2-5.2); BILIRUBIN,TOTAL 0.6 MG/DL (0.2-1.0); CALCIUM LEVEL 8.7 MG/DL (8.8-10.2); CREATININE FOR GFR 1.3 MG/DL (0.70-1.30); GLOMERULAR FILTRATION RATE 59.4 (>49); MAGNESIUM LEVEL 1.6 MG/DL (1.8-2.4); POTASSIUM SERUM 4.4 MEQ/L (3.5-5.1)
== END ==
LOC: M LAB REF 09:41
PROVIDERS: ATTEND Internal Medicine Hematology
DX: Z94.81 Bone marrow transplant status (principal); D89.813 Graft-versus-host disease, unspecified

== ENCOUNTER → 2020-08-06 | Outpatient (REF) | payer MEDICARE, OTHER ==
[2020-08-06 11:01] LABS: BASO # 0.1 10^3/uL (0.0-0.2); BASO % 0.5 % (0.0-1.0); EOS # 0.4 10^3/uL (0.0-0.5); EOS % 3.9 % (0.0-3.0); HEMATOCRIT 41.7 % (42.0-52.0); HEMOGLOBIN 14.1 g/dl (13.5-17.5); LYMPH # 1.2 10^3/uL (1.5-5.0); LYMPH % 12.9 % (24.0-44.0); MEAN CORPUSCULAR HGB CONC 33.8 g/dl (32.0-36.5); MEAN CORPUSCULAR VOLUME 88.7 fl (80.0-96.0); MONO # 0.6 10^3/uL (0.0-0.8); MONO % 6.9 % (0.0-5.0); NEUTROPHILS % 75.3 % (36.0-66.0); PLATELET COUNT, AUTOMATED 182 10^3/uL (150-450); WHITE BLOOD COUNT 9.3 10^3/uL (4.0-10.0)
[2020-08-06 11:26] LABS: ALBUMIN 3.5 GM/DL (3.2-5.2); BILIRUBIN,TOTAL 0.6 MG/DL (0.2-1.0); CALCIUM LEVEL 8.7 MG/DL (8.8-10.2); CREATININE FOR GFR 1.38 MG/DL (0.70-1.30); GLOMERULAR FILTRATION RATE 55.4 (>49); MAGNESIUM LEVEL 1.5 MG/DL (1.8-2.4); POTASSIUM SERUM 4.2 MEQ/L (3.5-5.1); TOTAL PROTEIN 5.9 GM/DL (6.4-8.2)
[2020-08-11 07:07] LABS: CMV QUANT DNA PCR (PLASMA) Negative (Negative)
== END ==
LOC: M LAB REF 10:31
PROVIDERS: ATTEND Internal Medicine Hematology
DX: C83.10 Mantle cell lymphoma, unspecified site (principal); D89.813 Graft-versus-host disease, unspecified; Z94.81 Bone marrow transplant status

== ENCOUNTER → 2020-08-06 | Outpatient (CLI) | payer MEDICARE, OTHER ==
[~2020-08-06] MED LIST changes: +SODIUM CHLORIDE 0.9% INJ 10 ML SYR IV PRN
== END ==
LOC: M ONCM 10:35
PROVIDERS: ATTEND Internal Medicine Hematology
DX: C83.10 Mantle cell lymphoma, unspecified site (principal); D89.813 Graft-versus-host disease, unspecified; Z94.81 Bone marrow transplant status
CPT/HCPCS: 80053; 83615; 83735; 85025; 87497; J1642

== ENCOUNTER → 2020-10-05 | Outpatient (REF) | payer MEDICARE, OTHER ==
[~2020-10-05] MED LIST changes: +DYAZ37.5 PO; -SODIUM CHLORIDE 0.9% INJ 10 ML SYR IV PRN
[2020-10-05 10:22] LABS: BASO # 0.1 10^3/uL (0.0-0.2); BASO % 0.6 % (0.0-1.0); EOS # 0.4 10^3/uL (0.0-0.5); EOS % 4.9 % (0.0-3.0); HEMATOCRIT 40.8 % (42.0-52.0); HEMOGLOBIN 13.8 g/dl (13.5-17.5); LYMPH # 1.9 10^3/uL (1.5-5.0); LYMPH % 23.1 % (24.0-44.0); MEAN CORPUSCULAR HEMOGLOBIN 29.2 pg (27.0-33.0); MEAN CORPUSCULAR HGB CONC 33.8 g/dl (32.0-36.5); MEAN CORPUSCULAR VOLUME 86.4 fl (80.0-96.0); MONO # 0.7 10^3/uL (0.0-0.8); MONO % 9.1 % (0.0-5.0); NEUTROPHILS % 61.9 % (36.0-66.0); PLATELET COUNT, AUTOMATED 220 10^3/uL (150-450); RED BLOOD COUNT 4.72 10^6/uL (4.30-6.10)
[2020-10-05 10:47] LABS: ALBUMIN 3.8 GM/DL (3.2-5.2); BILIRUBIN,TOTAL 0.6 MG/DL (0.2-1.0); CALCIUM LEVEL 8.9 MG/DL (8.8-10.2); CREATININE FOR GFR 1.91 MG/DL (0.70-1.30); GLOMERULAR FILTRATION RATE 38.1 (>49); MAGNESIUM LEVEL 1.7 MG/DL (1.8-2.4); POTASSIUM SERUM 3.7 MEQ/L (3.5-5.1); TOTAL PROTEIN 6.2 GM/DL (6.4-8.2)
[2020-10-08 23:16] LABS: CMV QUANT DNA PCR (PLASMA) Negative (Negative)
== END ==
LOC: M LAB REF 10:03
PROVIDERS: ATTEND Internal Medicine Hematology
DX: C83.10 Mantle cell lymphoma, unspecified site (principal); Z94.81 Bone marrow transplant status; D89.813 Graft-versus-host disease, unspecified

== ENCOUNTER → 2020-11-19 | Outpatient (REF) | payer MEDICARE, OTHER ==
[~2020-11-19] MED LIST changes: +METH-1164 PO; -METH1TAB40 PO
[2020-11-19 11:58] LABS: BASO # 0.1 10^3/uL (0.0-0.2); BASO % 0.7 % (0.0-1.0); EOS # 0.3 10^3/uL (0.0-0.5); EOS % 4.1 % (0.0-3.0); HEMATOCRIT 39.9 % (42.0-52.0); HEMOGLOBIN 13.7 g/dl (13.5-17.5); LYMPH # 2.1 10^3/uL (1.5-5.0); LYMPH % 25.2 % (24.0-44.0); MEAN CORPUSCULAR HEMOGLOBIN 29.8 pg (27.0-33.0); MEAN CORPUSCULAR HGB CONC 34.3 g/dl (32.0-36.5); MEAN CORPUSCULAR VOLUME 86.7 fl (80.0-96.0); MONO # 0.7 10^3/uL (0.0-0.8); NEUTROPHILS % 60.8 % (36.0-66.0); PLATELET COUNT, AUTOMATED 208 10^3/uL (150-450); WHITE BLOOD COUNT 8.2 10^3/uL (4.0-10.0)
[2020-11-19 12:16] LABS: ALBUMIN 3.7 GM/DL (3.2-5.2); BILIRUBIN,TOTAL 0.5 MG/DL (0.2-1.0); CALCIUM LEVEL 9.1 MG/DL (8.8-10.2); CREATININE FOR GFR 2.5 MG/DL (0.70-1.30); GLOMERULAR FILTRATION RATE 27.8 (>49); MAGNESIUM LEVEL 1.8 MG/DL (1.8-2.4); POTASSIUM SERUM 3.4 MEQ/L (3.5-5.1); TOTAL PROTEIN 6.3 GM/DL (6.4-8.2)
== END ==
LOC: M LAB REF 08:59
PROVIDERS: ATTEND Internal Medicine Hematology
DX: Z94.81 Bone marrow transplant status (principal); C83.10 Mantle cell lymphoma, unspecified site; D89.813 Graft-versus-host disease, unspecified

== ENCOUNTER → 2020-11-27 | Outpatient (REF) | payer MEDICARE, OTHER ==
[~2020-11-27] MED LIST changes: +ASPI-569 PO; -ASPI81TAEC PO
[2020-11-27 12:05] LABS: BASO % 0.1 % (0.0-1.0); EOS % 0.3 % (0.0-3.0); HEMATOCRIT 40.2 % (42.0-52.0); HEMOGLOBIN 13.5 g/dl (13.5-17.5); LYMPH # 0.9 10^3/uL (1.5-5.0); LYMPH % 7.5 % (24.0-44.0); MEAN CORPUSCULAR HEMOGLOBIN 29.7 pg (27.0-33.0); MEAN CORPUSCULAR HGB CONC 33.6 g/dl (32.0-36.5); MEAN CORPUSCULAR VOLUME 88.5 fl (80.0-96.0); MONO # 0.4 10^3/uL (0.0-0.8); NEUTROPHILS # 10.4 10^3/uL (1.5-8.5); NEUTROPHILS % 88.5 % (36.0-66.0); PLATELET COUNT, AUTOMATED 215 10^3/uL (150-450); RED BLOOD COUNT 4.54 10^6/uL (4.30-6.10); WHITE BLOOD COUNT 11.7 10^3/uL (4.0-10.0)
[2020-11-27 12:42] LABS: ALBUMIN 3.6 GM/DL (3.2-5.2); BILIRUBIN,TOTAL 0.4 MG/DL (0.2-1.0); CALCIUM LEVEL 8.6 MG/DL (8.8-10.2); CREATININE FOR GFR 1.44 MG/DL (0.70-1.30); GLOMERULAR FILTRATION RATE 52.6 (>49); MAGNESIUM LEVEL 1.6 MG/DL (1.8-2.4); POTASSIUM SERUM 4.7 MEQ/L (3.5-5.1); TOTAL PROTEIN 6.1 GM/DL (6.4-8.2)
== END ==
LOC: M LAB REF 11:33
PROVIDERS: ATTEND Internal Medicine Hematology
DX: Z94.81 Bone marrow transplant status (principal); C83.10 Mantle cell lymphoma, unspecified site; D89.813 Graft-versus-host disease, unspecified

== ENCOUNTER → 2020-12-09 | Outpatient (REF) | payer MEDICARE, OTHER ==
[2020-12-09 14:01] LABS: APPEARANCE, URINE CLEAR (CLEAR); BACTERIA, URINE AUTO NEGATIVE (NEGATIVE); BILIRUBIN, URINE AUTO NEGATIVE (NEGATIVE); BLOOD, URINE BLOOD NEGATIVE (NEGATIVE); COLOR, URINE STRAW (YELLOW); GLUCOSE, URINE (UA) AUTO 3+ mg/dL (NEGATIVE); KETONE, URINE AUTO NEGATIVE (NEGATIVE); LEUKOCYTE ESTERASE, URINE AUTO NEGATIVE (NEGATIVE); NITRITE, URINE AUTO NEGATIVE (NEGATIVE); PROTEIN, URINE AUTO NEGATIVE (NEGATIVE); RBC, URINE AUTO 1 /HPF (0-3); SPECIFIC GRAVITY URINE AUTO 1.027 (1.002-1.035); SQUAMOUS EPITHELIAL CELL UR AU 0 /HPF (0-6); UROBILINOGEN, URINE AUTO 0.2 mg/dL (0.0-2.0); WBC, URINE AUTO 0 /HPF (0-3)
[2020-12-09 14:46] LABS: BLOOD UREA NITROGEN 22 MG/DL (7-18); CALCIUM LEVEL 9.2 MG/DL (8.8-10.2); CARBON DIOXIDE LEVEL 26 MEQ/L (21-32); CHLORIDE LEVEL 102 MEQ/L (98-107); CREATININE FOR GFR 1.19 MG/DL (0.70-1.30); GLOMERULAR FILTRATION RATE > 60.0 (>49); GLUCOSE, FASTING 416 MG/DL (70-100); NT-PRO BNP 198 PG/ML (<125); POTASSIUM SERUM 4.7 MEQ/L (3.5-5.1); SODIUM LEVEL 134 MEQ/L (136-145)
[2020-12-09 14:51] LABS: TOTAL PROTEIN,RANDOM URINE 16.1 MG/DL (0.0-12.0)
== END ==
LOC: M LAB REF 12:41
PROVIDERS: ATTEND Internal Medicine Nephrology
DX: N18.30 Chronic kidney disease, stage 3 unspecified (principal)

== ENCOUNTER → 2020-12-24 | Outpatient (REF) | payer MEDICARE, OTHER ==
[~2020-12-24] MED LIST changes: +PRED20TA PO; +[UNRECOGNIZED DRUG - CODE] XX
[2020-12-24 11:37] LABS: BASO % 0.4 % (0.0-1.0); EOS # 0.1 10^3/uL (0.0-0.5); EOS % 1.2 % (0.0-3.0); HEMATOCRIT 40.6 % (42.0-52.0); HEMOGLOBIN 13.5 g/dl (13.5-17.5); LYMPH # 2.4 10^3/uL (1.5-5.0); LYMPH % 24.1 % (24.0-44.0); MEAN CORPUSCULAR HEMOGLOBIN 30.3 pg (27.0-33.0); MEAN CORPUSCULAR HGB CONC 33.3 g/dl (32.0-36.5); MEAN CORPUSCULAR VOLUME 91.2 fl (80.0-96.0); MONO # 0.8 10^3/uL (0.0-0.8); MONO % 7.7 % (2.0-8.0); NEUTROPHILS # 6.7 10^3/uL (1.5-8.5); NEUTROPHILS % 65.8 % (36.0-66.0); PLATELET COUNT, AUTOMATED 208 10^3/uL (150-450); RED BLOOD COUNT 4.45 10^6/uL (4.30-6.10); WHITE BLOOD COUNT 10.1 10^3/uL (4.0-10.0)
[2020-12-24 13:27] LABS: ALBUMIN 3.3 GM/DL (3.2-5.2); ALT/SGPT 47 U/L (12-78); BILIRUBIN,TOTAL 0.4 MG/DL (0.2-1.0); BLOOD UREA NITROGEN 18 MG/DL (7-18); CALCIUM LEVEL 8.6 MG/DL (8.8-10.2); CARBON DIOXIDE LEVEL 27 MEQ/L (21-32); CHLORIDE LEVEL 106 MEQ/L (98-107); CREATININE FOR GFR 1.19 MG/DL (0.70-1.30); GLOMERULAR FILTRATION RATE > 60.0 (>49); GLUCOSE, FASTING 93 MG/DL (70-100); LDH LACTATE DEHYDROGENASE 326 U/L (87-241); MAGNESIUM LEVEL 1.6 MG/DL (1.8-2.4); SODIUM LEVEL 142 MEQ/L (136-145); TOTAL PROTEIN 5.8 GM/DL (6.4-8.2)
[2020-12-29 07:07] LABS: CMV QUANT DNA PCR (PLASMA) Negative (Negative)
== END ==
LOC: M LAB REF 09:06
PROVIDERS: ATTEND Internal Medicine Hematology
DX: Z94.81 Bone marrow transplant status (principal); C83.10 Mantle cell lymphoma, unspecified site; D89.813 Graft-versus-host disease, unspecified

== ENCOUNTER → 2021-01-27 | Outpatient (REF) | payer MEDICARE, OTHER ==
[2021-01-27 11:53] LABS: BASO # 0.1 10^3/uL (0.0-0.2); BASO % 0.6 % (0.0-1.0); EOS # 0.3 10^3/uL (0.0-0.5); EOS % 4.1 % (0.0-3.0); HEMOGLOBIN 13.9 g/dl (13.5-17.5); LYMPH # 1.9 10^3/uL (1.5-5.0); LYMPH % 22.7 % (24.0-44.0); MEAN CORPUSCULAR HEMOGLOBIN 30.4 pg (27.0-33.0); MEAN CORPUSCULAR HGB CONC 33.9 g/dl (32.0-36.5); MEAN CORPUSCULAR VOLUME 89.7 fl (80.0-96.0); MONO # 0.7 10^3/uL (0.0-0.8); MONO % 8.5 % (2.0-8.0); NEUTROPHILS # 5.3 10^3/uL (1.5-8.5); NEUTROPHILS % 63.7 % (36.0-66.0); PLATELET COUNT, AUTOMATED 202 10^3/uL (150-450); RED BLOOD COUNT 4.57 10^6/uL (4.30-6.10); WHITE BLOOD COUNT 8.3 10^3/uL (4.0-10.0)
[2021-01-27 12:37] LABS: ALBUMIN 3.4 GM/DL (3.2-5.2); ALT/SGPT 23 U/L (12-78); BILIRUBIN,TOTAL 0.6 MG/DL (0.2-1.0); BLOOD UREA NITROGEN 15 MG/DL (7-18); CARBON DIOXIDE LEVEL 26 MEQ/L (21-32); CHLORIDE LEVEL 110 MEQ/L (98-107); CREATININE FOR GFR 1.11 MG/DL (0.70-1.30); GLOMERULAR FILTRATION RATE > 60.0 (>49); GLUCOSE, FASTING 109 MG/DL (70-100); LDH LACTATE DEHYDROGENASE 255 U/L (87-241); MAGNESIUM LEVEL 1.7 MG/DL (1.8-2.4); SODIUM LEVEL 142 MEQ/L (136-145); TOTAL PROTEIN 5.9 GM/DL (6.4-8.2)
== END ==
LOC: M LAB REF 11:46
PROVIDERS: ATTEND Nurse Practitioner Acute Care
DX: D89.813 Graft-versus-host disease, unspecified (principal); Z94.81 Bone marrow transplant status

== ENCOUNTER → 2021-04-13 | Outpatient (REF) | payer MEDICARE, OTHER ==
[~2021-04-13] MED LIST changes: +LIDO1CRE42 EXT; +LIDO1CRE42 TOP; -LIDO2.5C15 EXT; -LIDO2.5C15 TOP
[2021-04-13 17:24] LABS: BASO # 0.1 10^3/uL (0.0-0.2); BASO % 0.6 % (0.0-1.0); EOS # 0.2 10^3/uL (0.0-0.5); EOS % 2.8 % (0.0-3.0); HEMATOCRIT 42.3 % (42.0-52.0); HEMOGLOBIN 14.1 g/dl (13.5-17.5); LYMPH # 1.2 10^3/uL (1.5-5.0); LYMPH % 13.7 % (24.0-44.0); MEAN CORPUSCULAR HEMOGLOBIN 29.5 pg (27.0-33.0); MEAN CORPUSCULAR HGB CONC 33.3 g/dl (32.0-36.5); MEAN CORPUSCULAR VOLUME 88.5 fl (80.0-96.0); MONO # 0.6 10^3/uL (0.0-0.8); MONO % 6.4 % (2.0-8.0); NEUTROPHILS # 6.6 10^3/uL (1.5-8.5); NEUTROPHILS % 75.9 % (36.0-66.0); PLATELET COUNT, AUTOMATED 205 10^3/uL (150-450); RED BLOOD COUNT 4.78 10^6/uL (4.30-6.10); WHITE BLOOD COUNT 8.7 10^3/uL (4.0-10.0)
[2021-04-13 17:54] LABS: ALBUMIN 3.7 GM/DL (3.2-5.2); BILIRUBIN,TOTAL 0.8 MG/DL (0.2-1.0); CALCIUM LEVEL 8.7 MG/DL (8.8-10.2); CREATININE FOR GFR 1.29 MG/DL (0.70-1.30); GLOMERULAR FILTRATION RATE 59.7 (>49); POTASSIUM SERUM 3.9 MEQ/L (3.5-5.1); TOTAL PROTEIN 6.6 GM/DL (6.4-8.2)
== END ==
LOC: M LAB REF 15:14
PROVIDERS: ATTEND Nurse Practitioner Family
DX: Z94.81 Bone marrow transplant status (principal)

== ENCOUNTER → 2021-05-21 | Outpatient (CLI) | payer MEDICARE, OTHER ==
--- NOTE | 2021-05-22 00:59 | REPVR ---
PROCEDURE INFORMATION: Exam: MR Lumbar Spine Without Contrast Exam date and time: 05/21/2021 12:06 PM Age: 65 years old Clinical indication: Low back pain. Lumbar radiculopathy. History of lymphoma. TECHNIQUE: Imaging protocol: Multiplanar magnetic resonance images of the lumbar spine without intravenous contrast. COMPARISON: CT abdomen pelvis from 06/30/2017 FINDINGS: Vertebral body heights are maintained. No abnormal marrow signal. No cord compression. No abnormal cord signal. Conus medullaris terminates at the L1 level. Paravertebral soft tissues are unremarkable. L1-L2: No significant canal or foraminal narrowing. L2-L3: No significant canal or foraminal narrowing. L3-L4: Right foraminal disc protrusion superimposed over broad-based disc bulge causing mild canal narrowing with mild left and moderate right foraminal narrowing. Effacement of the right lateral recess with impingement upon the traversing right L4 nerve root. Slight impingement upon the exiting right L3 nerve root. L4-L5: Broad-based disc bulge and slight facet hypertrophy cause mild canal narrowing with mild right and moderate left foraminal narrowing. L5-S1: No significant canal or foraminal narrowing. IMPRESSION: Multilevel spondylotic changes of the lumbar spine including impingement upon the traversing right L4 and exiting right L3 nerve roots at the L3-L4 level, as detailed above. Electronically signed by: Kalyan Tidwell On 05/22/2021 00:59:20 AM
== END ==
LOC: M RAD 11:17
PROVIDERS: ATTEND Pain Medicine Interventional Pain Medicine
DX: M54.16 Radiculopathy, lumbar region (principal)

== ENCOUNTER → 2021-06-28 | Outpatient (REF) | payer MEDICARE, OTHER ==
[2021-06-28 15:16] LABS: BASO # 0.1 10^3/uL (0.0-0.2); BASO % 0.5 % (0.0-1.0); EOS # 0.1 10^3/uL (0.0-0.5); HEMOGLOBIN 15.5 g/dl (13.5-17.5); LYMPH # 1.4 10^3/uL (1.5-5.0); LYMPH % 12.1 % (24.0-44.0); MEAN CORPUSCULAR HEMOGLOBIN 30.2 pg (27.0-33.0); MEAN CORPUSCULAR HGB CONC 33.7 g/dl (32.0-36.5); MEAN CORPUSCULAR VOLUME 89.7 fl (80.0-96.0); MONO # 0.6 10^3/uL (0.0-0.8); MONO % 5.3 % (2.0-8.0); NEUTROPHILS # 9.3 10^3/uL (1.5-8.5); NEUTROPHILS % 80.7 % (36.0-66.0); PLATELET COUNT, AUTOMATED 245 10^3/uL (150-450); RED BLOOD COUNT 5.13 10^6/uL (4.30-6.10); WHITE BLOOD COUNT 11.6 10^3/uL (4.0-10.0)
[2021-06-28 15:39] LABS: ALBUMIN 3.3 GM/DL (3.2-5.2); ALT/SGPT 32 U/L (12-78); BILIRUBIN,TOTAL 0.4 MG/DL (0.2-1.0); BLOOD UREA NITROGEN 15 MG/DL (7-18); CALCIUM LEVEL 8.8 MG/DL (8.8-10.2); CARBON DIOXIDE LEVEL 30 MEQ/L (21-32); CHLORIDE LEVEL 110 MEQ/L (98-107); CREATININE FOR GFR 1.23 MG/DL (0.70-1.30); GLOMERULAR FILTRATION RATE > 60.0 (>49); GLUCOSE, FASTING 145 MG/DL (70-100); POTASSIUM SERUM 4.1 MEQ/L (3.5-5.1); SODIUM LEVEL 142 MEQ/L (136-145); TOTAL PROTEIN 6.7 GM/DL (6.4-8.2)
== END ==
LOC: M LAB REF 14:53
PROVIDERS: ATTEND Internal Medicine Hematology
DX: Z94.81 Bone marrow transplant status (principal)

== ENCOUNTER → 2021-09-27 | Outpatient (REF) | payer MEDICARE, OTHER ==
[2021-09-27 10:09] LABS: BASO # 0.1 10^3/uL (0.0-0.2); BASO % 0.7 % (0.0-1.0); EOS # 0.5 10^3/uL (0.0-0.5); EOS % 6.6 % (0.0-3.0); HEMATOCRIT 42.7 % (42.0-52.0); HEMOGLOBIN 14.2 g/dl (13.5-17.5); LYMPH # 1.9 10^3/uL (1.5-5.0); LYMPH % 24.6 % (24.0-44.0); MEAN CORPUSCULAR HEMOGLOBIN 29.5 pg (27.0-33.0); MEAN CORPUSCULAR HGB CONC 33.3 g/dl (32.0-36.5); MEAN CORPUSCULAR VOLUME 88.8 fl (80.0-96.0); MONO # 0.7 10^3/uL (0.0-0.8); MONO % 9.2 % (2.0-8.0); NEUTROPHILS # 4.5 10^3/uL (1.5-8.5); NEUTROPHILS % 58.6 % (36.0-66.0); PLATELET COUNT, AUTOMATED 213 10^3/uL (150-450); RED BLOOD COUNT 4.81 10^6/uL (4.30-6.10); WHITE BLOOD COUNT 7.7 10^3/uL (4.0-10.0)
[2021-09-27 10:43] LABS: ALBUMIN 3.3 GM/DL (3.2-5.2); ALT/SGPT 24 U/L (12-78); BILIRUBIN,TOTAL 0.7 MG/DL (0.2-1.0); BLOOD UREA NITROGEN 10 MG/DL (7-18); CALCIUM LEVEL 8.6 MG/DL (8.8-10.2); CARBON DIOXIDE LEVEL 28 MEQ/L (21-32); CHLORIDE LEVEL 109 MEQ/L (98-107); CREATININE FOR GFR 1.22 MG/DL (0.70-1.30); GLOMERULAR FILTRATION RATE > 60.0 (>49); GLUCOSE, FASTING 157 MG/DL (70-100); SODIUM LEVEL 142 MEQ/L (136-145); TOTAL PROTEIN 6.4 GM/DL (6.4-8.2)
== END ==
LOC: M LAB REF 09:48
PROVIDERS: ATTEND Internal Medicine Hematology
DX: Z94.81 Bone marrow transplant status (principal)

== ENCOUNTER → 2022-01-24 | Outpatient (REF) | payer MEDICARE, OTHER ==
[~2022-01-24] MED LIST changes: -FLUC100T PO; +FLUC100T3 PO
[2022-01-24 10:07] LABS: BASO # 0.1 10^3/uL (0.0-0.2); BASO % 0.6 % (0.0-1.0); EOS # 0.6 10^3/uL (0.0-0.5); EOS % 6.9 % (0.0-3.0); HEMATOCRIT 41.5 % (42.0-52.0); HEMOGLOBIN 14.4 g/dl (13.5-17.5); LYMPH % 23.3 % (24.0-44.0); MEAN CORPUSCULAR HGB CONC 34.7 g/dl (32.0-36.5); MEAN CORPUSCULAR VOLUME 86.5 fl (80.0-96.0); MONO # 0.7 10^3/uL (0.0-0.8); MONO % 7.9 % (2.0-8.0); NEUTROPHILS # 5.1 10^3/uL (1.5-8.5); NEUTROPHILS % 60.9 % (36.0-66.0); PLATELET COUNT, AUTOMATED 235 10^3/uL (150-450); WHITE BLOOD COUNT 8.4 10^3/uL (4.0-10.0)
[2022-01-24 10:39] LABS: ALBUMIN 3.4 GM/DL (3.2-5.2); BILIRUBIN,TOTAL 0.6 MG/DL (0.2-1.0); CALCIUM LEVEL 8.6 MG/DL (8.8-10.2); CREATININE FOR GFR 1.38 MG/DL (0.70-1.30); GLOMERULAR FILTRATION RATE 55.1 (>49); TOTAL PROTEIN 6.2 GM/DL (6.4-8.2)
== END ==
LOC: M LAB REF 09:20
PROVIDERS: ATTEND Internal Medicine Hematology
DX: Z94.81 Bone marrow transplant status (principal)

== ENCOUNTER → 2022-02-23 | Outpatient (REF) | payer MEDICARE, OTHER ==
[2022-02-23 10:43] LABS: BASO # 0.1 10^3/uL (0.0-0.2); BASO % 0.6 % (0.0-1.0); EOS # 0.5 10^3/uL (0.0-0.5); EOS % 5.5 % (0.0-3.0); HEMATOCRIT 42.1 % (42.0-52.0); HEMOGLOBIN 14.6 g/dl (13.5-17.5); LYMPH # 1.5 10^3/uL (1.5-5.0); LYMPH % 17.8 % (24.0-44.0); MEAN CORPUSCULAR HEMOGLOBIN 30.3 pg (27.0-33.0); MEAN CORPUSCULAR HGB CONC 34.7 g/dl (32.0-36.5); MEAN CORPUSCULAR VOLUME 87.3 fl (80.0-96.0); MONO # 0.6 10^3/uL (0.0-0.8); MONO % 7.3 % (2.0-8.0); NEUTROPHILS # 5.7 10^3/uL (1.5-8.5); NEUTROPHILS % 68.6 % (36.0-66.0); PLATELET COUNT, AUTOMATED 225 10^3/uL (150-450); RED BLOOD COUNT 4.82 10^6/uL (4.30-6.10); WHITE BLOOD COUNT 8.3 10^3/uL (4.0-10.0)
[2022-02-23 11:07] LABS: ALBUMIN 3.4 GM/DL (3.2-5.2); BILIRUBIN,TOTAL 0.7 MG/DL (0.2-1.0); CALCIUM LEVEL 8.6 MG/DL (8.8-10.2); CREATININE FOR GFR 1.35 MG/DL (0.70-1.30); GLOMERULAR FILTRATION RATE 56.5 (>49); TOTAL PROTEIN 6.4 GM/DL (6.4-8.2)
== END ==
LOC: M LAB REF 10:09
PROVIDERS: ATTEND Internal Medicine Hematology
DX: Z94.81 Bone marrow transplant status (principal)

== ENCOUNTER → 2022-03-20 | Outpatient (CLI) | payer MEDICARE, OTHER ==
[~2022-03-20] MED LIST changes: +CYCL5TAB PO; +FLON1SPR; +HYDR-4467 PO; +VITA100093 PO
== END ==
LOC: M LABSMTC 10:52
PROVIDERS: ATTEND Anesthesiology
DX: Z01.812 Encounter for preprocedural laboratory examination (principal)

== ENCOUNTER 2022-03-23 06:48 | Day surgery (SDC) | payer MEDICARE, OTHER ==
[~2022-03-23] VITALS: Ht 170.2 cm; Wt 100.4 kg
[~2022-03-23 06:48] MED LIST changes: +NS 1,000 ML IV ONE
[2022-03-23 09:25] VITALS: BP 135/87
[2022-03-23] MEDS ORDERED: LIDOCAINE 2% INJ 100 MG/5 ML SYRINGE As Ordered ONE (09:26)
[2022-03-23] MEDS ORDERED: propofoL 200 MG/20 ML VIAL As Ordered ONE (09:26)
== END 2022-03-23 09:32 | disposition home or self-care (01) ==
LOC: M OPP 06:48
PROVIDERS: ATTEND Surgery
DX: Z12.11 Encounter for screening for malignant neoplasm of colon (principal); Z80.0 Family history of malignant neoplasm of digestive organs; K57.30 Diverticulosis of large intestine without perforation or abscess without bleeding; K64.8 Other hemorrhoids; Z79.02 Long term (current) use of antithrombotics/antiplatelets; Z79.2 Long term (current) use of antibiotics; Z79.51 Long term (current) use of inhaled steroids; Z79.810 Long term (current) use of selective estrogen receptor modulators (SERMs); Z79.4 Long term (current) use of insulin; Z79.899 Other long term (current) drug therapy; Z86.73 Personal history of transient ischemic attack (TIA), and cerebral infarction without residual deficits; Z86.74 Personal history of sudden cardiac arrest; C83.10 Mantle cell lymphoma, unspecified site; J45.909 Unspecified asthma, uncomplicated

== ENCOUNTER → 2022-05-10 | Outpatient (CLI) | payer MEDICARE, OTHER ==
[~2022-05-10] MED LIST changes: +LEVO1TAB40 PO; -LEVO750T13 PO; -NS 1,000 ML IV ONE
== END ==
LOC: M SLEEP 20:00
PROVIDERS: ATTEND Internal Medicine Pulmonary Disease
DX: G47.33 Obstructive sleep apnea (adult) (pediatric) (principal)

== ENCOUNTER → 2022-05-20 | Outpatient (REF) | payer MEDICARE, OTHER ==
[2022-05-20 10:48] LABS: BASO % 0.5 % (0.0-1.0); EOS # 0.3 10^3/uL (0.0-0.5); HEMATOCRIT 41.1 % (42.0-52.0); HEMOGLOBIN 13.7 g/dl (13.5-17.5); LYMPH # 1.8 10^3/uL (1.5-5.0); MEAN CORPUSCULAR HEMOGLOBIN 29.5 pg (27.0-33.0); MEAN CORPUSCULAR HGB CONC 33.3 g/dl (32.0-36.5); MEAN CORPUSCULAR VOLUME 88.4 fl (80.0-96.0); MONO # 0.5 10^3/uL (0.0-0.8); NEUTROPHILS # 3.3 10^3/uL (1.5-8.5); PLATELET COUNT, AUTOMATED 220 10^3/uL (150-450); RED BLOOD COUNT 4.65 10^6/uL (4.30-6.10)
[2022-05-20 11:22] LABS: ALBUMIN 3.3 GM/DL (3.2-5.2); BILIRUBIN,TOTAL 0.5 MG/DL (0.2-1.0); CALCIUM LEVEL 8.3 MG/DL (8.8-10.2); CREATININE FOR GFR 1.31 MG/DL (0.70-1.30); GLOMERULAR FILTRATION RATE 58.5 (>49); MAGNESIUM LEVEL 1.6 MG/DL (1.8-2.4); POTASSIUM SERUM 4.4 MEQ/L (3.5-5.1); TOTAL PROTEIN 5.8 GM/DL (6.4-8.2)
== END ==
LOC: M LAB REF 10:13
PROVIDERS: ATTEND Internal Medicine Hematology
DX: Z94.81 Bone marrow transplant status (principal); C83.10 Mantle cell lymphoma, unspecified site; D89.813 Graft-versus-host disease, unspecified

== ENCOUNTER → 2022-06-15 | Outpatient (REF) | payer MEDICARE, OTHER ==
[2022-06-15 12:02] LABS: BASO # 0.1 10^3/uL (0.0-0.2); BASO % 0.6 % (0.0-1.0); EOS # 0.4 10^3/uL (0.0-0.5); EOS % 5.5 % (0.0-3.0); HEMATOCRIT 39.5 % (42.0-52.0); HEMOGLOBIN 13.1 g/dl (13.5-17.5); LYMPH # 1.5 10^3/uL (1.5-5.0); LYMPH % 18.8 % (24.0-44.0); MEAN CORPUSCULAR HEMOGLOBIN 29.5 pg (27.0-33.0); MEAN CORPUSCULAR HGB CONC 33.2 g/dl (32.0-36.5); MONO # 0.5 10^3/uL (0.0-0.8); MONO % 6.9 % (2.0-8.0); NEUTROPHILS # 5.3 10^3/uL (1.5-8.5); NEUTROPHILS % 67.9 % (36.0-66.0); PLATELET COUNT, AUTOMATED 238 10^3/uL (150-450); RED BLOOD COUNT 4.44 10^6/uL (4.30-6.10); WHITE BLOOD COUNT 7.8 10^3/uL (4.0-10.0)
[2022-06-15 12:43] LABS: ALBUMIN 3.4 GM/DL (3.2-5.2); BILIRUBIN,TOTAL 0.7 MG/DL (0.2-1.0); CALCIUM LEVEL 8.7 MG/DL (8.8-10.2); CREATININE FOR GFR 1.34 MG/DL (0.70-1.30); MAGNESIUM LEVEL 1.8 MG/DL (1.8-2.4); POTASSIUM SERUM 3.9 MEQ/L (3.5-5.1); TOTAL PROTEIN 6.3 GM/DL (6.4-8.2)
== END ==
LOC: M LAB REF 10:54
PROVIDERS: ATTEND Internal Medicine Hematology
DX: Z94.81 Bone marrow transplant status (principal); D89.813 Graft-versus-host disease, unspecified; C83.10 Mantle cell lymphoma, unspecified site

== ENCOUNTER → 2022-08-11 | Outpatient (REF) | payer MEDICARE, OTHER ==
[2022-08-11 09:42] LABS: BASO # 0.1 10^3/uL (0.0-0.2); BASO % 0.6 % (0.0-1.0); EOS # 0.2 10^3/uL (0.0-0.5); EOS % 2.6 % (0.0-3.0); HEMATOCRIT 41.5 % (42.0-52.0); HEMOGLOBIN 13.8 g/dl (13.5-17.5); LYMPH # 1.4 10^3/uL (1.5-5.0); LYMPH % 16.5 % (24.0-44.0); MEAN CORPUSCULAR HEMOGLOBIN 29.8 pg (27.0-33.0); MEAN CORPUSCULAR HGB CONC 33.3 g/dl (32.0-36.5); MEAN CORPUSCULAR VOLUME 89.6 fl (80.0-96.0); MONO # 0.5 10^3/uL (0.0-0.8); MONO % 5.7 % (2.0-8.0); NEUTROPHILS # 6.3 10^3/uL (1.5-8.5); NEUTROPHILS % 74.1 % (36.0-66.0); PLATELET COUNT, AUTOMATED 215 10^3/uL (150-450); RED BLOOD COUNT 4.63 10^6/uL (4.30-6.10); WHITE BLOOD COUNT 8.4 10^3/uL (4.0-10.0)
[2022-08-11 10:49] LABS: ALBUMIN 3.5 G/DL (3.2-5.2); ALT/SGPT 26 U/L (7.0-40); BILIRUBIN,TOTAL 0.5 MG/DL (0.3-1.2); BLOOD UREA NITROGEN 11 MG/DL (9-23); CARBON DIOXIDE LEVEL 25 MMOL/L (20-31); CHLORIDE LEVEL 105 MMOL/L (98-107); CREATININE FOR GFR 1.21 MG/DL (0.70-1.30); GLOMERULAR FILTRATION RATE > 60.0 (>49); GLUCOSE, FASTING 140 MG/DL (74-106); LDH LACTATE DEHYDROGENASE 230 U/L (120-246); MAGNESIUM LEVEL 1.5 MG/DL (1.8-2.4); POTASSIUM SERUM 4.3 MMOL/L (3.5-5.1); SODIUM LEVEL 140 MMOL/L (136-145); TOTAL PROTEIN 5.8 G/DL (5.7-8.2)
== END ==
LOC: M LAB REF 08:47
DX: Z94.81 Bone marrow transplant status (principal); C83.10 Mantle cell lymphoma, unspecified site; D89.813 Graft-versus-host disease, unspecified

== ENCOUNTER → 2022-09-08 | Outpatient (REF) | payer MEDICARE, OTHER ==
[2022-09-08 10:20] LABS: BASO % 0.4 % (0.0-1.0); EOS # 0.4 10^3/uL (0.0-0.5); EOS % 3.7 % (0.0-3.0); HEMATOCRIT 40.9 % (42.0-52.0); HEMOGLOBIN 13.7 g/dl (13.5-17.5); LYMPH # 1.3 10^3/uL (1.5-5.0); LYMPH % 13.3 % (24.0-44.0); MEAN CORPUSCULAR HEMOGLOBIN 29.3 pg (27.0-33.0); MEAN CORPUSCULAR HGB CONC 33.5 g/dl (32.0-36.5); MEAN CORPUSCULAR VOLUME 87.6 fl (80.0-96.0); MONO # 0.6 10^3/uL (0.0-0.8); NEUTROPHILS # 7.6 10^3/uL (1.5-8.5); NEUTROPHILS % 76.1 % (36.0-66.0); PLATELET COUNT, AUTOMATED 272 10^3/uL (150-450); RED BLOOD COUNT 4.67 10^6/uL (4.30-6.10)
[2022-09-08 10:35] LABS: LDH LACTATE DEHYDROGENASE 227 U/L (120-246); MAGNESIUM LEVEL 1.5 MG/DL (1.8-2.4)
[2022-09-08 10:36] LABS: ALBUMIN 2.7 G/DL (3.2-5.2); ALKALINE PHOSPHATASE 104 U/L (46-116); ALT/SGPT 21 U/L (7.0-40); AST/SGOT 24 U/L (<34); BILIRUBIN,TOTAL 0.5 MG/DL (0.3-1.2); BLOOD UREA NITROGEN 10 MG/DL (9-23); CALCIUM LEVEL 8.3 MG/DL (8.3-10.6); CARBON DIOXIDE LEVEL 27 MMOL/L (20-31); CHLORIDE LEVEL 107 MMOL/L (98-107); GLOMERULAR FILTRATION RATE > 60.0 (>49); GLUCOSE, FASTING 131 MG/DL (74-106); POTASSIUM SERUM 4.4 MMOL/L (3.5-5.1); SODIUM LEVEL 140 MMOL/L (136-145); TOTAL PROTEIN 5.3 G/DL (5.7-8.2)
== END ==
LOC: M LAB REF 09-07 14:39
PROVIDERS: ATTEND Nurse Practitioner Family
DX: Z94.81 Bone marrow transplant status (principal); C83.10 Mantle cell lymphoma, unspecified site; D89.813 Graft-versus-host disease, unspecified

== ENCOUNTER → 2022-11-04 | Outpatient (REF) | payer MEDICARE, OTHER ==
[2022-11-04 12:25] LABS: BASO % 0.2 % (0.0-1.0); EOS % 0.1 % (0.0-3.0); HEMATOCRIT 36.5 % (42.0-52.0); HEMOGLOBIN 12.4 g/dl (13.5-17.5); LYMPH # 1.1 10^3/uL (1.5-5.0); LYMPH % 8.2 % (24.0-44.0); MEAN CORPUSCULAR HEMOGLOBIN 29.4 pg (27.0-33.0); MEAN CORPUSCULAR VOLUME 86.5 fl (80.0-96.0); MONO # 0.6 10^3/uL (0.0-0.8); MONO % 4.6 % (2.0-8.0); NEUTROPHILS % 85.7 % (36.0-66.0); PLATELET COUNT, AUTOMATED 264 10^3/uL (150-450); RED BLOOD COUNT 4.22 10^6/uL (4.30-6.10); WHITE BLOOD COUNT 12.9 10^3/uL (4.0-10.0)
[2022-11-04 12:43] LABS: LDH LACTATE DEHYDROGENASE 645 U/L (120-246)
[2022-11-04 12:48] LABS: BLOOD UREA NITROGEN 21 MG/DL (9-23); CALCIUM LEVEL 7.8 MG/DL (8.3-10.6); CARBON DIOXIDE LEVEL 29 MMOL/L (20-31); CHLORIDE LEVEL 105 MMOL/L (98-107); CREATININE FOR GFR 1.17 MG/DL (0.70-1.30); GLOMERULAR FILTRATION RATE > 60.0 (>49); GLUCOSE, FASTING 242 MG/DL (74-106); SODIUM LEVEL 139 MMOL/L (136-145)
[2022-11-04 12:49] LABS: ALBUMIN 2.2 G/DL (3.2-5.2); ALKALINE PHOSPHATASE 148 U/L (46-116); ALT/SGPT 56 U/L (7.0-40); AST/SGOT < 8 U/L (<34); BILIRUBIN,TOTAL 0.6 MG/DL (0.3-1.2); MAGNESIUM LEVEL 1.4 MG/DL (1.8-2.4); TOTAL PROTEIN 4.2 G/DL (5.7-8.2)
== END ==
LOC: M LAB REF 08:51
PROVIDERS: ATTEND Nurse Practitioner Family
DX: Z94.81 Bone marrow transplant status (principal)

== ENCOUNTER → 2022-12-06 | Outpatient (REF) | payer MEDICARE, OTHER ==
[2022-12-06 13:45] LABS: BASO % 0.1 % (0.0-1.0); HEMATOCRIT 34.6 % (42.0-52.0); HEMOGLOBIN 11.4 g/dl (13.5-17.5); LYMPH # 1.1 10^3/uL (1.5-5.0); LYMPH % 7.9 % (24.0-44.0); MEAN CORPUSCULAR HEMOGLOBIN 30.7 pg (27.0-33.0); MEAN CORPUSCULAR HGB CONC 32.9 g/dl (32.0-36.5); MEAN CORPUSCULAR VOLUME 93.3 fl (80.0-96.0); MONO # 0.7 10^3/uL (0.0-0.8); MONO % 5.1 % (2.0-8.0); NEUTROPHILS # 11.7 10^3/uL (1.5-8.5); NEUTROPHILS % 82.7 % (36.0-66.0); PLATELET COUNT, AUTOMATED 197 10^3/uL (150-450); RED BLOOD COUNT 3.71 10^6/uL (4.30-6.10); WHITE BLOOD COUNT 14.1 10^3/uL (4.0-10.0)
[2022-12-06 14:04] LABS: LDH LACTATE DEHYDROGENASE 529 U/L (120-246)
[2022-12-06 14:05] LABS: ALBUMIN 2.5 G/DL (3.2-5.2); ALKALINE PHOSPHATASE 130 U/L (46-116); ALT/SGPT 81 U/L (7.0-40); AST/SGOT 31 U/L (<34); BILIRUBIN,TOTAL 0.6 MG/DL (0.3-1.2); BLOOD UREA NITROGEN 27 MG/DL (9-23); CARBON DIOXIDE LEVEL 27 MMOL/L (20-31); CHLORIDE LEVEL 102 MMOL/L (98-107); CREATININE FOR GFR 0.93 MG/DL (0.70-1.30); GLOMERULAR FILTRATION RATE > 60.0 (>49); GLUCOSE, FASTING 361 MG/DL (74-106); POTASSIUM SERUM 4.6 MMOL/L (3.5-5.1); SODIUM LEVEL 137 MMOL/L (136-145); TOTAL PROTEIN 4.5 G/DL (5.7-8.2)
== END ==
LOC: M LAB REF 11:07
PROVIDERS: ATTEND Nurse Practitioner Family
DX: Z94.81 Bone marrow transplant status (principal); C83.10 Mantle cell lymphoma, unspecified site; D89.813 Graft-versus-host disease, unspecified

== ENCOUNTER → 2022-12-28 | Outpatient (REF) | payer MEDICARE, OTHER | LOC: M LAB REF 08:57 | PROVIDERS: ATTEND Internal Medicine Hematology | DX: Z53.9 Procedure and treatment not carried out, unspecified reason (principal) ==

== ENCOUNTER → 2023-01-02 | Outpatient (REF) | payer MEDICARE, OTHER ==
[2023-01-02 11:18] LABS: BASO # 0.1 10^3/uL (0.0-0.2); BASO % 0.5 % (0.0-1.0); HEMATOCRIT 42.7 % (42.0-52.0); HEMOGLOBIN 14.2 g/dl (13.5-17.5); LYMPH # 1.4 10^3/uL (1.5-5.0); LYMPH % 8.4 % (24.0-44.0); MEAN CORPUSCULAR HEMOGLOBIN 31.1 pg (27.0-33.0); MEAN CORPUSCULAR HGB CONC 33.3 g/dl (32.0-36.5); MEAN CORPUSCULAR VOLUME 93.6 fl (80.0-96.0); MONO # 0.8 10^3/uL (0.0-0.8); MONO % 4.9 % (2.0-8.0); NEUTROPHILS # 13.3 10^3/uL (1.5-8.5); NEUTROPHILS % 81.3 % (36.0-66.0); PLATELET COUNT, AUTOMATED 193 10^3/uL (150-450); RED BLOOD COUNT 4.56 10^6/uL (4.30-6.10); WHITE BLOOD COUNT 16.4 10^3/uL (4.0-10.0)
[2023-01-02 11:36] LABS: LDH LACTATE DEHYDROGENASE 651 U/L (120-246)
[2023-01-02 11:38] LABS: ALBUMIN 2.5 G/DL (3.2-5.2); ALKALINE PHOSPHATASE 124 U/L (46-116); ALT/SGPT 69 U/L (7.0-40); AST/SGOT 30 U/L (<34); BILIRUBIN,TOTAL 0.8 MG/DL (0.3-1.2); BLOOD UREA NITROGEN 43 MG/DL (9-23); CALCIUM LEVEL 8.3 MG/DL (8.3-10.6); CARBON DIOXIDE LEVEL 28 MMOL/L (20-31); CHLORIDE LEVEL 98 MMOL/L (98-107); CREATININE FOR GFR 1.02 MG/DL (0.70-1.30); GLOMERULAR FILTRATION RATE > 60.0 (>49); GLUCOSE, FASTING 265 MG/DL (74-106); MAGNESIUM LEVEL 1.8 MG/DL (1.8-2.4); POTASSIUM SERUM 4.6 MMOL/L (3.5-5.1); SODIUM LEVEL 135 MMOL/L (136-145); TOTAL PROTEIN 4.7 G/DL (5.7-8.2)
== END ==
LOC: M LAB REF 10:27
PROVIDERS: ATTEND Nurse Practitioner Family
DX: Z94.81 Bone marrow transplant status (principal)

== ENCOUNTER → 2023-05-22 | Outpatient (REF) | payer MEDICARE, OTHER ==
[~2023-05-22] MED LIST changes: -LIDO1CRE42 EXT; -LIDO1CRE42 TOP; +LIDO30CR18 EXT; +LIDO30CR18 TOP; -MAXA10TA15 PO; +RIZA10TA66 PO
[2023-05-22 11:28] LABS: APPEARANCE, URINE CLOUDY (CLEAR); BACTERIA, URINE AUTO 1+ (NEGATIVE); BILIRUBIN, URINE AUTO NEGATIVE (NEGATIVE); BLOOD, URINE BLOOD 1+ (NEGATIVE); COLOR, URINE YELLOW (YELLOW); GLUCOSE, URINE (UA) AUTO 2+ mg/dL (NEGATIVE); KETONE, URINE AUTO NEGATIVE (NEGATIVE); LEUKOCYTE ESTERASE, URINE AUTO 3+ (NEGATIVE); MUCUS, URINE SMALL (NEGATIVE); NITRITE, URINE AUTO NEGATIVE (NEGATIVE); PROTEIN, URINE AUTO 2+ mg/dL (NEGATIVE); RBC, URINE AUTO 13 /HPF (0-3); SPECIFIC GRAVITY URINE AUTO 1.009 (1.002-1.035); SQUAMOUS EPITHELIAL CELL UR AU 0 /HPF (0-6); UROBILINOGEN, URINE AUTO 0.2 mg/dL (0.0-2.0); WBC, URINE AUTO TNTC /HPF (0-3)
== END ==
LOC: SKLAB4 10:57
PROVIDERS: ATTEND Internal Medicine
DX: R33.9 Retention of urine, unspecified (principal)

== ENCOUNTER → 2023-07-06 | Outpatient (REF) | payer MEDICARE, OTHER ==
[2023-07-06 16:04] LABS: HEMATOCRIT 42.6 % (42.0-52.0); HEMOGLOBIN 14.7 g/dl (13.5-17.5); MEAN CORPUSCULAR HEMOGLOBIN 33.5 pg (27.0-33.0); MEAN CORPUSCULAR HGB CONC 34.5 g/dl (32.0-36.5); PLATELET COUNT, AUTOMATED 164 10^3/uL (150-450); RED BLOOD COUNT 4.39 10^6/uL (4.30-6.10)
[2023-07-06 16:15] LABS: INR 1.23; PROTHROMBIN TIME 15.1 SECONDS (12.5-14.5)
[2023-07-06 16:16] LABS: PARTIAL THROMBOPLASTIN TIME 21.7 SECONDS (24.8-34.2)
[2023-07-06 16:37] LABS: ALBUMIN 2.7 G/DL (3.2-5.2); ALKALINE PHOSPHATASE 178 U/L (46-116); ALT/SGPT 58 U/L (7.0-40); AST/SGOT 25 U/L (<34); BILIRUBIN,TOTAL 0.5 MG/DL (0.3-1.2); BLOOD UREA NITROGEN 32 MG/DL (9-23); CALCIUM LEVEL 8.3 MG/DL (8.3-10.6); CARBON DIOXIDE LEVEL 27 MMOL/L (20-31); CHLORIDE LEVEL 99 MMOL/L (98-107); CREATININE FOR GFR 0.58 MG/DL (0.70-1.30); GLOMERULAR FILTRATION RATE > 60.0 (>49); GLUCOSE, FASTING 415 MG/DL (74-106); POTASSIUM SERUM 3.9 MMOL/L (3.5-5.1); SODIUM LEVEL 136 MMOL/L (136-145)
== END ==
LOC: SKLAB2 14:18
PROVIDERS: ATTEND Internal Medicine
DX: R23.3 Spontaneous ecchymoses (principal)

== ENCOUNTER → 2023-07-07 | Outpatient (REF) | payer MEDICARE, OTHER ==
[2023-07-07 09:25] LABS: HEMATOCRIT 45.9 % (42.0-52.0); HEMOGLOBIN 15.6 g/dl (13.5-17.5); MEAN CORPUSCULAR HEMOGLOBIN 33.2 pg (27.0-33.0); MEAN CORPUSCULAR VOLUME 97.7 fl (80.0-96.0); PLATELET COUNT, AUTOMATED 149 10^3/uL (150-450); WHITE BLOOD COUNT 13.8 10^3/uL (4.0-10.0)
[2023-07-07 09:39] LABS: C REACTIVE PROTEIN QUANTITATIV < 0.40 MG/DL (<1.0)
[2023-07-07 09:54] LABS: ATYPICAL LYMPH 2 % (0-5); LYMPHOCYTES 25 % (16-44); MONOCYTES 4 % (0-5); NEUTROPHILS 65 % (28-66)
[2023-07-07 09:55] LABS: OVALOCYTES 1+; PLATELET ESTIMATE NORMAL (NORMAL); SMUDGE CELLS 1+
[2023-07-07 09:57] LABS: ANISOCYTOSIS 1+; MICROCYTOSIS 1+; TEAR DROP CELLS 1+
[2023-07-07 09:58] LABS: HEPATITIS B SURFACE ANTIBODY POSITIVE (POSITIVE); POLYCHROMASIA 1+
[2023-07-07 10:30] LABS: HEPATITIS B CORE ANTIBODY IGM NEGATIVE (NEGATIVE); HEPATITIS C VIRUS ABY INDEX 0.03 INDEX (<0.8)
== END ==
LOC: SKLAB2 06:48
PROVIDERS: ATTEND Internal Medicine
DX: C83.10 Mantle cell lymphoma, unspecified site (principal)

== ENCOUNTER → 2023-08-02 | Outpatient (REF) | payer MEDICARE, OTHER | LOC: SKLAB2 18:23 | PROVIDERS: ATTEND Internal Medicine | DX: E11.65 Type 2 diabetes mellitus with hyperglycemia (principal) ==

== ENCOUNTER → 2023-08-25 | Outpatient (CLI) | payer MEDICARE, OTHER | LOC: M RAD 15:03 | PROVIDERS: ATTEND Physician Assistant | DX: M19.171 Post-traumatic osteoarthritis, right ankle and foot (principal) ==

== ENCOUNTER → 2023-08-25 | Outpatient (CLI) | payer MEDICARE, OTHER | LOC: M SOG 07:55 | PROVIDERS: ATTEND Physician Assistant | DX: Z53.9 Procedure and treatment not carried out, unspecified reason (principal) ==

== ENCOUNTER → 2023-08-25 | Outpatient (REF) | payer MEDICARE, OTHER | LOC: SKLAB2 14:27 | PROVIDERS: ATTEND Internal Medicine | DX: Z53.8 Procedure and treatment not carried out for other reasons (principal) ==

== ENCOUNTER → 2023-08-31 | Outpatient (REF) | payer MEDICARE, OTHER ==
[2023-08-31 19:17] LABS: APPEARANCE, URINE CLOUDY (CLEAR); BACTERIA, URINE AUTO 1+ (NEGATIVE); BILIRUBIN, URINE AUTO NEGATIVE (NEGATIVE); BLOOD, URINE BLOOD NEGATIVE (NEGATIVE); COLOR, URINE RED (YELLOW); GLUCOSE, URINE (UA) AUTO 3+ mg/dL (NEGATIVE); KETONE, URINE AUTO NEGATIVE (NEGATIVE); LEUKOCYTE ESTERASE, URINE AUTO 2+ (NEGATIVE); MUCUS, URINE SMALL (NEGATIVE); NITRITE, URINE AUTO POSITIVE (NEGATIVE); PROTEIN, URINE AUTO 1+ mg/dL (NEGATIVE); RBC, URINE AUTO 1 /HPF (0-3); SPECIFIC GRAVITY URINE AUTO 1.008 (1.002-1.035); SQUAMOUS EPITHELIAL CELL UR AU 0 /HPF (0-6); UROBILINOGEN, URINE AUTO 0.2 mg/dL (0.0-2.0); WBC, URINE AUTO 56 /HPF (0-3)
== END ==
LOC: SKLAB2 17:35
PROVIDERS: ATTEND Internal Medicine
DX: N39.0 Urinary tract infection, site not specified (principal)

== ENCOUNTER → 2023-09-08 | Outpatient (REF) | payer MEDICARE, OTHER | LOC: M SFHCWOUN 18:01 | PROVIDERS: ATTEND Surgery | DX: M79.89 Other specified soft tissue disorders (principal); M61.471 Other calcification of muscle, right ankle and foot ==

== ENCOUNTER → 2023-09-26 | Outpatient (REF) | payer OTHER ==
[2023-09-02 16:45] LABS: BLOOD UREA NITROGEN 35 MG/DL (9-23); CALCIUM LEVEL 7.8 MG/DL (8.3-10.6); CARBON DIOXIDE LEVEL 27 MMOL/L (20-31); CHLORIDE LEVEL 100 MMOL/L (98-107); CREATININE FOR GFR 0.68 MG/DL (0.70-1.30); GLOMERULAR FILTRATION RATE > 60.0 (>49); GLUCOSE, FASTING 320 MG/DL (74-106); POTASSIUM SERUM 3.7 MMOL/L (3.5-5.1); SODIUM LEVEL 136 MMOL/L (136-145)
== END ==
LOC: SKLAB2 10:18
PROVIDERS: ATTEND Internal Medicine
DX: N39.0 Urinary tract infection, site not specified (principal)

== ENCOUNTER → 2023-10-02 | Outpatient (REF) | payer OTHER ==
[2023-10-02 10:52] LABS: HEMOGLOBIN A1c 8.7 % (4.0-6.0)
== END ==
LOC: SKLAB2 08:20
PROVIDERS: ATTEND Family Medicine
DX: E11.9 Type 2 diabetes mellitus without complications (principal)

== ENCOUNTER → 2023-10-25 | Outpatient (REF) | payer OTHER, MEDICARE ==
[2023-10-25 07:55] LABS: HEMATOCRIT 36.1 % (42.0-52.0); MEAN CORPUSCULAR HEMOGLOBIN 31.9 pg (27.0-33.0); MEAN CORPUSCULAR HGB CONC 33.2 g/dl (32.0-36.5); PLATELET COUNT, AUTOMATED 220 10^3/uL (150-450); RED BLOOD COUNT 3.76 10^6/uL (4.30-6.10); WHITE BLOOD COUNT 11.3 10^3/uL (4.0-10.0)
[2023-10-25 08:20] LABS: ALBUMIN 2.4 G/DL (3.2-5.2); ALKALINE PHOSPHATASE 101 U/L (46-116); ALT/SGPT 47 U/L (7.0-40); AST/SGOT 22 U/L (<34); BILIRUBIN,TOTAL 0.4 MG/DL (0.3-1.2); BLOOD UREA NITROGEN 22 MG/DL (9-23); CALCIUM LEVEL 8.3 MG/DL (8.3-10.6); CARBON DIOXIDE LEVEL 27 MMOL/L (20-31); CHLORIDE LEVEL 106 MMOL/L (98-107); CREATININE FOR GFR 0.57 MG/DL (0.70-1.30); GLOMERULAR FILTRATION RATE > 60.0 (>49); GLUCOSE, FASTING 138 MG/DL (74-106); POTASSIUM SERUM 3.5 MMOL/L (3.5-5.1); SODIUM LEVEL 140 MMOL/L (136-145); TOTAL PROTEIN 4.7 G/DL (5.7-8.2)
== END ==
LOC: SKLAB2 07:09
PROVIDERS: ATTEND Internal Medicine
DX: I10 Essential (primary) hypertension (principal)

== ENCOUNTER → 2024-02-01 | Outpatient (REF) | payer MEDICARE, OTHER ==
[2024-02-01 16:11] LABS: TOTAL PROTEIN,RANDOM URINE 20.5 MG/DL (0.0-14.0)
[2024-02-01 16:16] LABS: CREATININE, URINE 23.2 MG/DL; CREATININE,RANDOM URINE 23.2 MG/DL; MAU/CREAT RATIO 297.4 MCG/MG (0.0-30.0)
== END ==
LOC: SKLAB2 13:21
PROVIDERS: ATTEND Internal Medicine
DX: I10 Essential (primary) hypertension (principal); N05.9 Unspecified nephritic syndrome with unspecified morphologic changes

== ENCOUNTER → 2024-02-13 | Outpatient (REF) | payer MEDICARE, OTHER | LOC: SKLAB2 08:56 | PROVIDERS: ATTEND Internal Medicine | DX: Z53.8 Procedure and treatment not carried out for other reasons (principal) ==

== ENCOUNTER → 2024-02-27 | Outpatient (REF) | payer MEDICARE, OTHER ==
[2024-02-27 07:20] LABS: HEMOGLOBIN A1c 6.8 % (4.0-6.0)
== END ==
LOC: SKLAB2 08:30
PROVIDERS: ATTEND Internal Medicine
DX: E11.9 Type 2 diabetes mellitus without complications (principal); Z79.899 Other long term (current) drug therapy

== ENCOUNTER → 2024-03-16 | Outpatient (REF) ==
[2024-03-16 01:23] LABS: PROLACTIN 10.43 NG/ML (2.1-17.7)
[2024-03-16 01:24] LABS: FOLLICLE STIMULATING HORMONE 31.8 mIU/ML (1.4-18.1)
[2024-03-16 01:25] LABS: CORTISOL BASELINE 16.9 UG/DL (4.3-22.4)
== END ==
LOC: SKLAB2 03-15 21:00
PROVIDERS: ATTEND Internal Medicine
DX: N18.9 Chronic kidney disease, unspecified (principal)

== ENCOUNTER → 2024-05-09 | Outpatient (REF) | payer MEDICARE, OTHER ==
[2024-05-09 11:23] LABS: BASO # 0.1 10^3/uL (0.0-0.2); BASO % 0.6 % (0.0-1.0); EOS # 0.7 10^3/uL (0.0-0.5); EOS % 6.9 % (0.0-3.0); HEMOGLOBIN 12.2 g/dl (13.5-17.5); LYMPH # 0.8 10^3/uL (1.5-5.0); LYMPH % 7.7 % (24.0-44.0); MEAN CORPUSCULAR HGB CONC 31.3 g/dl (32.0-36.5); MONO # 0.7 10^3/uL (0.0-0.8); MONO % 7.3 % (2.0-8.0); NEUTROPHILS # 7.7 10^3/uL (1.5-8.5); NEUTROPHILS % 77.1 % (36.0-66.0); PLATELET COUNT, AUTOMATED 278 10^3/uL (150-450)
[2024-05-09 11:57] LABS: ALBUMIN 2.5 G/DL (3.2-5.2); ALKALINE PHOSPHATASE 83 U/L (46-116); ALT/SGPT 14 U/L (7.0-40); AST/SGOT 17 U/L (<34); BILIRUBIN,TOTAL 0.4 MG/DL (0.3-1.2); BLOOD UREA NITROGEN 12 MG/DL (9-23); CALCIUM LEVEL 8.7 MG/DL (8.3-10.6); CARBON DIOXIDE LEVEL 25 MMOL/L (20-31); CHLORIDE LEVEL 109 MMOL/L (98-107); CREATININE FOR GFR 0.64 MG/DL (0.70-1.30); GLOMERULAR FILTRATION RATE > 60.0 (>49); GLUCOSE, FASTING 118 MG/DL (74-106); SODIUM LEVEL 142 MMOL/L (136-145); TOTAL PROTEIN 5.2 G/DL (5.7-8.2)
== END ==
LOC: SKLAB2 07:00
PROVIDERS: ATTEND Internal Medicine
DX: I10 Essential (primary) hypertension (principal)

== ENCOUNTER → 2024-05-16 | Outpatient (REF) | payer MEDICARE, OTHER ==
[2024-05-16 19:04] LABS: APPEARANCE, URINE CLOUDY (CLEAR); BACTERIA, URINE AUTO 2+ (NEGATIVE); BILIRUBIN, URINE AUTO NEGATIVE (NEGATIVE); BLOOD, URINE BLOOD 2+ (NEGATIVE); COLOR, URINE AMBER (YELLOW); GLUCOSE, URINE (UA) AUTO NEGATIVE (NEGATIVE); KETONE, URINE AUTO NEGATIVE (NEGATIVE); LEUKOCYTE ESTERASE, URINE AUTO 3+ (NEGATIVE); MUCUS, URINE SMALL (NEGATIVE); NITRITE, URINE AUTO POSITIVE (NEGATIVE); PROTEIN, URINE AUTO 3+ mg/dL (NEGATIVE); RBC, URINE AUTO TNTC /HPF (0-3); SPECIFIC GRAVITY URINE AUTO 1.019 (1.002-1.035); SQUAMOUS EPITHELIAL CELL UR AU 1 /HPF (0-6); WBC, URINE AUTO TNTC /HPF (0-3)
== END ==
LOC: SKLAB2 17:32
PROVIDERS: ATTEND Internal Medicine
DX: R30.0 Dysuria (principal)

== ENCOUNTER → 2024-05-17 | Outpatient (REF) | payer MEDICARE, OTHER | LOC: SKLAB2 11:29 | PROVIDERS: ATTEND Internal Medicine | DX: Z53.8 Procedure and treatment not carried out for other reasons (principal) ==

== ENCOUNTER → 2024-05-24 | Outpatient (REF) | payer MEDICARE, OTHER ==
[2024-05-24 08:10] LABS: HEMATOCRIT 39.4 % (42.0-52.0); HEMOGLOBIN 12.5 g/dl (13.5-17.5); MEAN CORPUSCULAR HEMOGLOBIN 25.9 pg (27.0-33.0); MEAN CORPUSCULAR HGB CONC 31.7 g/dl (32.0-36.5); MEAN CORPUSCULAR VOLUME 81.7 fl (80.0-96.0); PLATELET COUNT, AUTOMATED 318 10^3/uL (150-450); RED BLOOD COUNT 4.82 10^6/uL (4.30-6.10); WHITE BLOOD COUNT 10.4 10^3/uL (4.0-10.0)
[2024-05-24 08:46] LABS: BLOOD UREA NITROGEN 13 MG/DL (9-23); CALCIUM LEVEL 8.5 MG/DL (8.3-10.6); CARBON DIOXIDE LEVEL 27 MMOL/L (20-31); CHLORIDE LEVEL 107 MMOL/L (98-107); GLOMERULAR FILTRATION RATE > 60.0 (>49); GLUCOSE, FASTING 82 MG/DL (74-106); POTASSIUM SERUM 3.9 MMOL/L (3.5-5.1); SODIUM LEVEL 141 MMOL/L (136-145)
== END ==
LOC: SKLAB2 07:28
PROVIDERS: ATTEND Internal Medicine
DX: R04.0 Epistaxis (principal)

== ENCOUNTER → 2024-05-29 | Outpatient (REF) | payer MEDICARE, OTHER ==
[~2024-05-29] MED LIST changes: +ACET1TAB55 PO; +ALBU2.5V10 INH; +ALBU8.5H INH; +BACL5TAB2 PO; +CARB15DR33 OU; +CEFD300CAP PO; +CICL6.6S TOP; +ELIQ2.5T PO; +EYEL1MED2 TOP; +FLUT1BLS6 IH; +HYDR-4468 PO; +METF-839 PO; +METO1TAB7 PO; +MILKSUS7 PO; +MIRT-84 PO; +MUCI600T31 PO; +ONDA-84 PO; +SERT-141 PO; +TEST200I14 IM
== END ==
LOC: SKLAB2 07:23
PROVIDERS: ATTEND Internal Medicine
DX: E29.1 Testicular hypofunction (principal)

== ENCOUNTER → 2024-05-30 | Outpatient (CLI) | payer MEDICARE, OTHER | LOC: M RAD 12:56 | PROVIDERS: ATTEND Nurse Practitioner Family | DX: R05.9 Cough, unspecified (principal) ==

== ENCOUNTER → 2024-05-30 | Outpatient (REF) | payer MEDICARE, OTHER | LOC: SKLAB2 12:25 | PROVIDERS: ATTEND Internal Medicine | DX: Z53.8 Procedure and treatment not carried out for other reasons (principal) ==

== ENCOUNTER → 2024-06-06 | Outpatient (REF) | payer MEDICARE, OTHER ==
[2024-06-06 10:01] LABS: HEMOGLOBIN A1c 6.6 % (4.0-6.0)
== END ==
LOC: SKLAB2 06:36
PROVIDERS: ATTEND Internal Medicine
DX: E11.9 Type 2 diabetes mellitus without complications (principal)

== ENCOUNTER 2024-06-08 11:30 | Inpatient (IN) | payer MEDICARE, OTHER ==
[~2024-06-08] VITALS: Ht 170.2 cm; Wt 84.7 kg
[~2024-06-08 11:30] MED LIST changes: -ACET1TAB55 PO; -ALBU2.5V10 INH; -ALBU8.5H INH; -BACL5TAB2 PO; -CARB15DR33 OU; -CEFD300CAP PO; -CICL6.6S TOP; -ELIQ2.5T PO; -EYEL1MED2 TOP; -FLUT1BLS6 IH; -HYDR-4468 PO; -METF-839 PO; -METO1TAB7 PO; -MILKSUS7 PO; -MIRT-84 PO; -MUCI600T31 PO; -ONDA-84 PO; -SERT-141 PO; -TEST200I14 IM
[2024-06-08] MEDS: NS 1,000 ML IV SCH (12:20)
[2024-06-08 12:23] LABS: BASO # 0.1 10^3/uL (0.0-0.2); BASO % 0.4 % (0.0-1.0); EOS # 0.9 10^3/uL (0.0-0.5); EOS % 6.7 % (0.0-3.0); HEMATOCRIT 42.4 % (42.0-52.0); HEMOGLOBIN 13.1 g/dl (13.5-17.5); LYMPH # 0.7 10^3/uL (1.5-5.0); LYMPH % 5.1 % (24.0-44.0); MEAN CORPUSCULAR HEMOGLOBIN 24.4 pg (27.0-33.0); MEAN CORPUSCULAR HGB CONC 30.9 g/dl (32.0-36.5); MEAN CORPUSCULAR VOLUME 79.1 fl (80.0-96.0); NEUTROPHILS # 10.2 10^3/uL (1.5-8.5); NEUTROPHILS % 78.8 % (36.0-66.0); PLATELET COUNT, AUTOMATED 319 10^3/uL (150-450); RED BLOOD COUNT 5.36 10^6/uL (4.30-6.10)
[2024-06-08 12:35] LABS: INR 1.28; PROTHROMBIN TIME 15.6 SECONDS (12.5-14.5)
[2024-06-08 12:44] LABS: LIPASE 20 U/L (12-53)
[2024-06-08 12:47] LABS: ALBUMIN 2.8 G/DL (3.2-5.2); ALKALINE PHOSPHATASE 100 U/L (46-116); ALT/SGPT 22 U/L (7.0-40); AST/SGOT 21 U/L (<34); BILIRUBIN,DIRECT 0.2 MG/DL (<0.4); BILIRUBIN,TOTAL 0.6 MG/DL (0.3-1.2); BLOOD UREA NITROGEN 13 MG/DL (9-23); CALCIUM LEVEL 8.4 MG/DL (8.3-10.6); CARBON DIOXIDE LEVEL 31 MMOL/L (20-31); CHLORIDE LEVEL 101 MMOL/L (98-107); CREATININE FOR GFR 0.69 MG/DL (0.70-1.30); GLOMERULAR FILTRATION RATE > 60.0 (>49); GLUCOSE, FASTING 110 MG/DL (74-106); POTASSIUM SERUM 4.4 MMOL/L (3.5-5.1); SODIUM LEVEL 137 MMOL/L (136-145); TOTAL PROTEIN 5.7 G/DL (5.7-8.2)
[2024-06-08] MEDS ORDERED: ISOVUE-370 76% 100ML VIAL As Ordered ONE (12:53)
[2024-06-08] MEDS: SUCRALFATE SUSP 1GM/10ML UD PO ONE (13:25)
[2024-06-08] MEDS: PANTOPRAZOLE 40MG VIAL IV ONE (13:25)
[2024-06-08] MEDS: METOCLOPRAMIDE INJ 10MG/2ML VIAL IV ONE (13:25)
[2024-06-08] MEDS: NS 1,000 ML IV ONE ×3 (15:21→18:52)
[2024-06-08] MEDS: cefTRIAXone SOD 2 GM in D5W MINI-BAG PLUS 50 ML IV ONE (18:52)
[2024-06-08] MEDS ORDERED: MED REC IN PROGRESS XX SCH (18:55)
[2024-06-08] MEDS: NS 500 ML IV ONE (19:00)
[2024-06-08] MEDS ORDERED: MIRT-84 PO (19:18)
[2024-06-08] MEDS ORDERED: CICL6.6S TOP (19:18)
[2024-06-08] MEDS ORDERED: FLUT1BLS6 IH (19:18)
[2024-06-08] MEDS ORDERED: METO1TAB7 PO (19:18)
[2024-06-08] MEDS ORDERED: HYDR-4468 PO ×2 (19:18)
[2024-06-08] MEDS ORDERED: ONDANSETRON 4MG 2ML VIAL IV PRN (19:20)
[2024-06-08] MEDS ORDERED: ACETAMINOPHEN TAB 650MG DOSE (2X325MG) PO PRN (19:20)
[2024-06-08] MEDS ORDERED: ELIQ2.5T PO (19:33)
[2024-06-08] MEDS ORDERED: TEST200I14 IM (19:33)
[2024-06-08] MEDS ORDERED: SERT-141 PO (19:33)
[2024-06-08] MEDS ORDERED: ALBU2.5V10 INH ×2 (19:33→20:05)
[2024-06-08] MEDS ORDERED: MUCI600T31 PO (19:38)
[2024-06-08] MEDS ORDERED: EYEL1MED2 TOP (19:38)
[2024-06-08] MEDS ORDERED: METF-839 PO (19:38)
[2024-06-08] MEDS ORDERED: ALBU8.5H INH (19:45)
[2024-06-08] MEDS ORDERED: CARB15DR33 OU (19:45)
[2024-06-08] MEDS ORDERED: ACET1TAB55 PO (19:45)
[2024-06-08] MEDS ORDERED: MILKSUS7 PO (20:05)
[2024-06-08] MEDS ORDERED: ONDA-84 PO (20:05)
[2024-06-08] MEDS ORDERED: HOME MED LIST COMPLETE! XX SCH (20:10)
[2024-06-09] VITALS (8 sets, daily range): BP systolic 103–158; BP diastolic 59–80; TEMP 97.4–99.9; O2SAT 91–97
[2024-06-09 05:09] LABS: BASO % 0.4 % (0.0-1.0); EOS # 0.8 10^3/uL (0.0-0.5); EOS % 7.2 % (0.0-3.0); HEMATOCRIT 35.8 % (42.0-52.0); HEMOGLOBIN 11.3 g/dl (13.5-17.5); LYMPH # 0.9 10^3/uL (1.5-5.0); LYMPH % 8.5 % (24.0-44.0); MEAN CORPUSCULAR HEMOGLOBIN 24.8 pg (27.0-33.0); MEAN CORPUSCULAR HGB CONC 31.6 g/dl (32.0-36.5); MEAN CORPUSCULAR VOLUME 78.5 fl (80.0-96.0); MONO # 1.2 10^3/uL (0.0-0.8); MONO % 10.6 % (2.0-8.0); NEUTROPHILS % 72.5 % (36.0-66.0); PLATELET COUNT, AUTOMATED 250 10^3/uL (150-450); RED BLOOD COUNT 4.56 10^6/uL (4.30-6.10); WHITE BLOOD COUNT 11.1 10^3/uL (4.0-10.0)
[2024-06-09 05:41] LABS: BLOOD UREA NITROGEN 9 MG/DL (9-23); CALCIUM LEVEL 7.6 MG/DL (8.3-10.6); CARBON DIOXIDE LEVEL 24 MMOL/L (20-31); CHLORIDE LEVEL 108 MMOL/L (98-107); CREATININE FOR GFR 0.65 MG/DL (0.70-1.30); GLOMERULAR FILTRATION RATE > 60.0 (>49); GLUCOSE, FASTING 63 MG/DL (74-106); POTASSIUM SERUM 3.8 MMOL/L (3.5-5.1); SODIUM LEVEL 138 MMOL/L (136-145)
[2024-06-09] MEDS: ACYCLOVIR 200 MG CAPSULE PO SCH (09:00)
[2024-06-09] MEDS: PANTOPRAZOLE 40MG VIAL IV SCH (09:15)
[2024-06-09] MEDS ORDERED: ALBUTEROL SULFATE 2.5MG/0.5ML INH NEB SOLN INH PRN (11:30)
[2024-06-09] MEDS: HYDROCORTISONE 100MG/2ML VIAL IV SCH (13:03)
[2024-06-09] MEDS: guaiFENesin ER TABLET 600 MG TAB PO SCH (13:06)
[2024-06-09] MEDS: SERTRALINE HCL 50 MG TAB PO SCH (13:06)
[2024-06-09] MEDS: ADVAIR HFA 230/21MCG INHALER INH SCH (13:23)
[2024-06-09] MEDS ORDERED: ALBUTEROL SULFATE 2.5MG/0.5ML INH NEB SOLN NEB SCH (16:00)
[2024-06-09] MEDS ORDERED: METOPROLOL 5 MG/5 ML VIAL IV SCH (16:25)
[2024-06-09] MEDS: TACROLIMUS 0.5MG CAP PO SCH (17:09)
[2024-06-09] MEDS: METOPROLOL TART 25 MG TABLET PO SCH (17:10)
[2024-06-09] MEDS: cefTRIAXone SOD 2 GM in D5W MINI-BAG PLUS 50 ML IV SCH (17:15)
[2024-06-09] MEDS: APIXABAN 2.5 MG TAB (ELIQUIS) PO SCH (21:41)
[2024-06-09] MEDS: MIRTAZAPINE 15 MG TAB PO SCH (21:42)
[2024-06-09] MEDS: ATORVASTATIN 20 MG TAB PO SCH (21:42)
[2024-06-10 04:00] VITALS: BP 118/80; TEMP 97.2; O2SAT 93
[2024-06-10 06:16] VITALS: BP 118/80
[2024-06-10 08:00] VITALS: BP 97/67; TEMP 97.2; O2SAT 93
[2024-06-10 08:20] LABS: BASO % 0.2 % (0.0-1.0); EOS % 0.2 % (0.0-3.0); HEMATOCRIT 37.5 % (42.0-52.0); HEMOGLOBIN 11.6 g/dl (13.5-17.5); LYMPH # 0.7 10^3/uL (1.5-5.0); LYMPH % 7.6 % (24.0-44.0); MEAN CORPUSCULAR HEMOGLOBIN 24.4 pg (27.0-33.0); MEAN CORPUSCULAR HGB CONC 30.9 g/dl (32.0-36.5); MEAN CORPUSCULAR VOLUME 78.9 fl (80.0-96.0); MONO # 0.6 10^3/uL (0.0-0.8); MONO % 7.1 % (2.0-8.0); NEUTROPHILS # 7.3 10^3/uL (1.5-8.5); NEUTROPHILS % 84.2 % (36.0-66.0); PLATELET COUNT, AUTOMATED 264 10^3/uL (150-450); RED BLOOD COUNT 4.75 10^6/uL (4.30-6.10); WHITE BLOOD COUNT 8.7 10^3/uL (4.0-10.0)
[2024-06-10 08:44] LABS: BLOOD UREA NITROGEN 7 MG/DL (9-23); CALCIUM LEVEL 7.9 MG/DL (8.3-10.6); CARBON DIOXIDE LEVEL 29 MMOL/L (20-31); CHLORIDE LEVEL 107 MMOL/L (98-107); CREATININE FOR GFR 0.61 MG/DL (0.70-1.30); GLOMERULAR FILTRATION RATE > 60.0 (>49); GLUCOSE, FASTING 155 MG/DL (74-106); SODIUM LEVEL 139 MMOL/L (136-145)
[2024-06-10] MEDS ORDERED: FLUT1BLS6 IH (10:16)
[2024-06-10] MEDS ORDERED: CEFD300CAP PO (10:16)
[2024-06-10] MEDS ORDERED: BACL5TAB2 PO (10:18)
[2024-06-10] MEDS: METOCLOPRAMIDE INJ 10MG/2ML VIAL IV ONE (10:24)
[2024-06-10] MEDS: BACLOFEN 5MG PER 1/2 TABLET PO SCH (11:33)
== END 2024-06-10 12:40 | DRG 872 ==
LOC: M ED 11:30 → EDBD 11:30 → EEVIPCON 19:18 → M ED INP 19:18 → M PCU 23:55
PROVIDERS: ADMIT Internal Medicine Nephrology; ATTEND Internal Medicine Nephrology
DX: A41.9 Sepsis, unspecified organism (principal); Z94.84 Stem cells transplant status; E27.40 Unspecified adrenocortical insufficiency; I50.32 Chronic diastolic (congestive) heart failure; E44.0 Moderate protein-calorie malnutrition; D89.813 Graft-versus-host disease, unspecified; L97.319 Non-pressure chronic ulcer of right ankle with unspecified severity; N39.0 Urinary tract infection, site not specified; I13.0 Hypertensive heart and chronic kidney disease with heart failure and stage 1 through stage 4 chronic kidney disease, or unspecified chronic kidney disease; R06.6 Hiccough; R11.2 Nausea with vomiting, unspecified; J45.909 Unspecified asthma, uncomplicated; E11.40 Type 2 diabetes mellitus with diabetic neuropathy, unspecified; E11.22 Type 2 diabetes mellitus with diabetic chronic kidney disease; N18.9 Chronic kidney disease, unspecified; N40.0 Benign prostatic hyperplasia without lower urinary tract symptoms; N32.81 Overactive bladder; G47.33 Obstructive sleep apnea (adult) (pediatric); E11.622 Type 2 diabetes mellitus with other skin ulcer; Z66 Do not resuscitate; K21.9 Gastro-esophageal reflux disease without esophagitis; E78.5 Hyperlipidemia, unspecified; E11.51 Type 2 diabetes mellitus with diabetic peripheral angiopathy without gangrene; K59.00 Constipation, unspecified; K57.30 Diverticulosis of large intestine without perforation or abscess without bleeding; R26.89 Other abnormalities of gait and mobility; H04.123 Dry eye syndrome of bilateral lacrimal glands; Z79.01 Long term (current) use of anticoagulants; Z86.718 Personal history of other venous thrombosis and embolism; Z79.84 Long term (current) use of oral hypoglycemic drugs; Z79.899 Other long term (current) drug therapy; Z88.0 Allergy status to penicillin; Z88.1 Allergy status to other antibiotic agents; Z79.52 Long term (current) use of systemic steroids

== ENCOUNTER → 2024-06-17 | Outpatient (REF) | payer MEDICARE, OTHER ==
[~2024-06-17] MED LIST changes: +ACET1TAB55 PO; +ALBU2.5V10 INH; +ALBU8.5H INH; +BACL5TAB2 PO; +CARB15DR33 OU; +CEFD300CAP PO; +CICL6.6S TOP; +ELIQ2.5T PO; +EYEL1MED2 TOP; +FLUT1BLS6 IH; +HYDR-4468 PO; +METF-839 PO; +METO1TAB7 PO; +MILKSUS7 PO; +MIRT-84 PO; +MUCI600T31 PO; +ONDA-84 PO; +SERT-141 PO; +TEST200I14 IM
[2024-06-17 11:06] LABS: BASO # 0.1 10^3/uL (0.0-0.2); BASO % 0.5 % (0.0-1.0); EOS # 0.5 10^3/uL (0.0-0.5); EOS % 4.2 % (0.0-3.0); HEMATOCRIT 36.2 % (42.0-52.0); HEMOGLOBIN 11.3 g/dl (13.5-17.5); LYMPH # 0.6 10^3/uL (1.5-5.0); LYMPH % 5.6 % (24.0-44.0); MEAN CORPUSCULAR HGB CONC 31.2 g/dl (32.0-36.5); MEAN CORPUSCULAR VOLUME 76.9 fl (80.0-96.0); MONO # 0.8 10^3/uL (0.0-0.8); MONO % 7.2 % (2.0-8.0); NEUTROPHILS # 9.4 10^3/uL (1.5-8.5); NEUTROPHILS % 81.7 % (36.0-66.0); PLATELET COUNT, AUTOMATED 324 10^3/uL (150-450); RED BLOOD COUNT 4.71 10^6/uL (4.30-6.10); WHITE BLOOD COUNT 11.5 10^3/uL (4.0-10.0)
[2024-06-17 11:38] LABS: BLOOD UREA NITROGEN 11 MG/DL (9-23); CALCIUM LEVEL 8.4 MG/DL (8.3-10.6); CARBON DIOXIDE LEVEL 26 MMOL/L (20-31); CHLORIDE LEVEL 108 MMOL/L (98-107); CREATININE FOR GFR 0.57 MG/DL (0.70-1.30); GLOMERULAR FILTRATION RATE > 60.0 (>49); GLUCOSE, FASTING 158 MG/DL (74-106); POTASSIUM SERUM 3.9 MMOL/L (3.5-5.1); SODIUM LEVEL 137 MMOL/L (136-145)
== END ==
LOC: SKLAB2 07:00
PROVIDERS: ATTEND Internal Medicine
DX: N39.0 Urinary tract infection, site not specified (principal)

== ENCOUNTER → 2024-06-19 | Outpatient (REF) | payer MEDICARE, OTHER | LOC: SKLAB2 07:00 | PROVIDERS: ATTEND Internal Medicine | DX: Z79.899 Other long term (current) drug therapy (principal) ==

== ENCOUNTER → 2024-07-02 | Outpatient (REF) | payer SELFPAY ==
[2024-07-02 12:00] LABS: HEMATOCRIT 34.8 % (42.0-52.0); HEMOGLOBIN 10.8 g/dl (13.5-17.5); MEAN CORPUSCULAR HEMOGLOBIN 23.5 pg (27.0-33.0); MEAN CORPUSCULAR VOLUME 75.8 fl (80.0-96.0); PLATELET COUNT, AUTOMATED 329 10^3/uL (150-450); RED BLOOD COUNT 4.59 10^6/uL (4.30-6.10); WHITE BLOOD COUNT 13.8 10^3/uL (4.0-10.0)
[2024-07-02 12:25] LABS: ALBUMIN 2.4 G/DL (3.2-5.2); ALKALINE PHOSPHATASE 89 U/L (46-116); ALT/SGPT 18 U/L (7.0-40); AST/SGOT 20 U/L (<34); BILIRUBIN,TOTAL 0.8 MG/DL (0.3-1.2); BLOOD UREA NITROGEN 19 MG/DL (9-23); CALCIUM LEVEL 8.7 MG/DL (8.3-10.6); CARBON DIOXIDE LEVEL 27 MMOL/L (20-31); CHLORIDE LEVEL 100 MMOL/L (98-107); CREATININE FOR GFR 0.73 MG/DL (0.70-1.30); GLOMERULAR FILTRATION RATE > 60.0 (>49); GLUCOSE, FASTING 192 MG/DL (74-106); POTASSIUM SERUM 4.2 MMOL/L (3.5-5.1); SODIUM LEVEL 132 MMOL/L (136-145); TOTAL PROTEIN 5.5 G/DL (5.7-8.2)
== END ==
LOC: SKLAB2 11:02
PROVIDERS: ATTEND Internal Medicine
DX: R06.02 Shortness of breath (principal)

== ENCOUNTER → 2024-07-02 | Outpatient (REF) | payer OTHER | LOC: SKLAB2 11:00 | PROVIDERS: ATTEND Internal Medicine | DX: Z53.8 Procedure and treatment not carried out for other reasons (principal) ==

== ENCOUNTER → 2024-07-03 | Outpatient (REF) | payer OTHER ==
[2024-07-03 11:47] LABS: BASO % 0.1 % (0.0-1.0); HEMOGLOBIN 10.8 g/dl (13.5-17.5); LYMPH # 0.4 10^3/uL (1.5-5.0); LYMPH % 2.6 % (24.0-44.0); MEAN CORPUSCULAR HEMOGLOBIN 23.6 pg (27.0-33.0); MEAN CORPUSCULAR HGB CONC 30.9 g/dl (32.0-36.5); MEAN CORPUSCULAR VOLUME 76.6 fl (80.0-96.0); MONO # 1.1 10^3/uL (0.0-0.8); MONO % 7.1 % (2.0-8.0); NEUTROPHILS # 13.7 10^3/uL (1.5-8.5); NEUTROPHILS % 89.7 % (36.0-66.0); PLATELET COUNT, AUTOMATED 346 10^3/uL (150-450); RED BLOOD COUNT 4.57 10^6/uL (4.30-6.10); WHITE BLOOD COUNT 15.3 10^3/uL (4.0-10.0)
[2024-07-03 12:43] LABS: BLOOD UREA NITROGEN 31 MG/DL (9-23); CALCIUM LEVEL 8.6 MG/DL (8.3-10.6); CARBON DIOXIDE LEVEL 26 MMOL/L (20-31); CHLORIDE LEVEL 104 MMOL/L (98-107); CREATININE FOR GFR 0.85 MG/DL (0.70-1.30); GLOMERULAR FILTRATION RATE > 60.0 (>49); GLUCOSE, FASTING 228 MG/DL (74-106); POTASSIUM SERUM 3.5 MMOL/L (3.5-5.1); SODIUM LEVEL 140 MMOL/L (136-145)
== END ==
LOC: SKLAB2 11:06
PROVIDERS: ATTEND Internal Medicine
DX: J18.9 Pneumonia, unspecified organism (principal)

== ENCOUNTER → 2024-07-05 | Outpatient (REF) | payer OTHER ==
[2024-07-05 11:09] LABS: BASO % 0.1 % (0.0-1.0); EOS % 0.1 % (0.0-3.0); HEMATOCRIT 34.4 % (42.0-52.0); HEMOGLOBIN 10.6 g/dl (13.5-17.5); LYMPH # 0.9 10^3/uL (1.5-5.0); LYMPH % 5.2 % (24.0-44.0); MEAN CORPUSCULAR HEMOGLOBIN 23.8 pg (27.0-33.0); MEAN CORPUSCULAR HGB CONC 30.8 g/dl (32.0-36.5); MEAN CORPUSCULAR VOLUME 77.3 fl (80.0-96.0); MONO # 1.3 10^3/uL (0.0-0.8); MONO % 7.3 % (2.0-8.0); NEUTROPHILS # 15.5 10^3/uL (1.5-8.5); NEUTROPHILS % 85.7 % (36.0-66.0); PLATELET COUNT, AUTOMATED 378 10^3/uL (150-450); RED BLOOD COUNT 4.45 10^6/uL (4.30-6.10); WHITE BLOOD COUNT 18.1 10^3/uL (4.0-10.0)
[2024-07-05 11:38] LABS: BLOOD UREA NITROGEN 24 MG/DL (9-23); CALCIUM LEVEL 9.1 MG/DL (8.3-10.6); CARBON DIOXIDE LEVEL 27 MMOL/L (20-31); CHLORIDE LEVEL 107 MMOL/L (98-107); CREATININE FOR GFR 0.66 MG/DL (0.70-1.30); GLOMERULAR FILTRATION RATE > 60.0 (>49); GLUCOSE, FASTING 186 MG/DL (74-106); POTASSIUM SERUM 4.6 MMOL/L (3.5-5.1); SODIUM LEVEL 142 MMOL/L (136-145)
== END ==
LOC: SKLAB2 08:25
PROVIDERS: ATTEND Internal Medicine
DX: J18.9 Pneumonia, unspecified organism (principal)

== ENCOUNTER → 2024-07-08 | Outpatient (REF) | payer SELFPAY ==
[2024-07-08 08:47] LABS: BASO % 0.3 % (0.0-1.0); EOS % 0.2 % (0.0-3.0); HEMATOCRIT 39.7 % (42.0-52.0); HEMOGLOBIN 11.8 g/dl (13.5-17.5); LYMPH # 1.8 10^3/uL (1.5-5.0); LYMPH % 11.2 % (24.0-44.0); MEAN CORPUSCULAR HGB CONC 29.7 g/dl (32.0-36.5); MEAN CORPUSCULAR VOLUME 77.2 fl (80.0-96.0); MONO # 1.1 10^3/uL (0.0-0.8); MONO % 7.2 % (2.0-8.0); NEUTROPHILS # 12.1 10^3/uL (1.5-8.5); NEUTROPHILS % 76.7 % (36.0-66.0); PLATELET COUNT, AUTOMATED 436 10^3/uL (150-450); RED BLOOD COUNT 5.14 10^6/uL (4.30-6.10); WHITE BLOOD COUNT 15.7 10^3/uL (4.0-10.0)
[2024-07-08 09:14] LABS: BLOOD UREA NITROGEN 20 MG/DL (9-23); CALCIUM LEVEL 8.9 MG/DL (8.3-10.6); CARBON DIOXIDE LEVEL 29 MMOL/L (20-31); CHLORIDE LEVEL 106 MMOL/L (98-107); CREATININE FOR GFR 0.62 MG/DL (0.70-1.30); GLOMERULAR FILTRATION RATE > 60.0 (>49); GLUCOSE, FASTING 160 MG/DL (74-106); POTASSIUM SERUM 4.2 MMOL/L (3.5-5.1); SODIUM LEVEL 139 MMOL/L (136-145)
== END ==
LOC: SKLAB2 06:56
PROVIDERS: ATTEND Internal Medicine
DX: I50.9 Heart failure, unspecified (principal); J18.9 Pneumonia, unspecified organism

== ENCOUNTER → 2024-07-22 | Outpatient (CLI) | payer MEDICARE, OTHER | LOC: M RAD 14:32 | PROVIDERS: ATTEND Nurse Practitioner Family | DX: K59.00 Constipation, unspecified (principal) ==

== ENCOUNTER → 2024-09-05 | Outpatient (REF) | payer OTHER ==
[~2024-09-05] MED LIST changes: -CYCL5TAB PO; +CYCL5TAB4 PO
[2024-09-05 10:37] LABS: HEMOGLOBIN A1c 6.4 % (4.0-6.0)
== END ==
LOC: SKLAB2 07:00
PROVIDERS: ATTEND Internal Medicine
DX: E11.9 Type 2 diabetes mellitus without complications (principal); Z51.81 Encounter for therapeutic drug level monitoring; Z79.899 Other long term (current) drug therapy

== ENCOUNTER → 2024-10-03 | Outpatient (REF) | payer OTHER ==
[2024-10-03 09:24] LABS: BLOOD UREA NITROGEN 14 MG/DL (9-23); CALCIUM LEVEL 8.9 MG/DL (8.3-10.6); CARBON DIOXIDE LEVEL 30 MMOL/L (20-31); CHLORIDE LEVEL 106 MMOL/L (98-107); CREATININE FOR GFR 0.72 MG/DL (0.70-1.30); GLOMERULAR FILTRATION RATE > 60.0 (>49); GLUCOSE, FASTING 94 MG/DL (74-106); POTASSIUM SERUM 4.3 MMOL/L (3.5-5.1); SODIUM LEVEL 143 MMOL/L (136-145)
[2024-10-03 10:34] LABS: HEMATOCRIT 36.8 % (42.0-52.0); HEMOGLOBIN 10.4 g/dl (13.5-17.5); MEAN CORPUSCULAR HEMOGLOBIN 19.9 pg (27.0-33.0); MEAN CORPUSCULAR HGB CONC 28.3 g/dl (32.0-36.5); MEAN CORPUSCULAR VOLUME 70.5 fl (80.0-96.0); PLATELET COUNT, AUTOMATED 461 10^3/uL (150-450); RED BLOOD COUNT 5.22 10^6/uL (4.30-6.10); WHITE BLOOD COUNT 11.5 10^3/uL (4.0-10.0)
== END ==
LOC: SKLAB2 07:39
PROVIDERS: ATTEND Internal Medicine
DX: Z01.818 Encounter for other preprocedural examination (principal); I45.10 Unspecified right bundle-branch block

== ENCOUNTER → 2024-10-03 | Outpatient (CLI) | payer SELFPAY | LOC: M RAD 09:51 | PROVIDERS: ATTEND Internal Medicine | DX: Z01.818 Encounter for other preprocedural examination (principal) ==

== ENCOUNTER → 2024-10-04 | Outpatient (REF) | payer SELFPAY | LOC: SKLAB2 11:53 | PROVIDERS: ATTEND Internal Medicine | DX: Z51.81 Encounter for therapeutic drug level monitoring (principal); I50.9 Heart failure, unspecified; Z79.899 Other long term (current) drug therapy ==

== ENCOUNTER → 2024-10-11 | Outpatient (REF) | payer SELFPAY ==
[2024-10-11 11:02] LABS: BLOOD UREA NITROGEN 19 MG/DL (9-23); CALCIUM LEVEL 9.3 MG/DL (8.3-10.6); CARBON DIOXIDE LEVEL 30 MMOL/L (20-31); CHLORIDE LEVEL 101 MMOL/L (98-107); CREATININE FOR GFR 0.78 MG/DL (0.70-1.30); GLOMERULAR FILTRATION RATE > 60.0 (>49); GLUCOSE, FASTING 185 MG/DL (74-106); POTASSIUM SERUM 3.9 MMOL/L (3.5-5.1); SODIUM LEVEL 142 MMOL/L (136-145)
== END ==
LOC: SKLAB2 09:31
PROVIDERS: ATTEND Internal Medicine
DX: E11.9 Type 2 diabetes mellitus without complications (principal)

== ENCOUNTER → 2024-10-17 | Outpatient (REF) | payer SELFPAY ==
[2024-10-17 07:14] LABS: BASO # 0.1 10^3/uL (0.0-0.2); BASO % 0.7 % (0.0-1.0); EOS # 0.4 10^3/uL (0.0-0.5); EOS % 3.3 % (0.0-3.0); HEMATOCRIT 36.2 % (42.0-52.0); HEMOGLOBIN 10.2 g/dl (13.5-17.5); LYMPH # 1.8 10^3/uL (1.5-5.0); MEAN CORPUSCULAR HEMOGLOBIN 19.6 pg (27.0-33.0); MEAN CORPUSCULAR HGB CONC 28.2 g/dl (32.0-36.5); MEAN CORPUSCULAR VOLUME 69.5 fl (80.0-96.0); MONO % 8.8 % (2.0-8.0); NEUTROPHILS # 7.5 10^3/uL (1.5-8.5); NEUTROPHILS % 69.6 % (36.0-66.0); PLATELET COUNT, AUTOMATED 417 10^3/uL (150-450); RED BLOOD COUNT 5.21 10^6/uL (4.30-6.10); WHITE BLOOD COUNT 10.8 10^3/uL (4.0-10.0)
[2024-10-17 07:40] LABS: ALBUMIN 3.2 G/DL (3.2-5.2); ALKALINE PHOSPHATASE 122 U/L (40-129); ALT/SGPT 17 U/L (7.0-40); AST/SGOT 20 U/L (<34); BILIRUBIN,TOTAL 0.5 MG/DL (0.3-1.2); BLOOD UREA NITROGEN 20 MG/DL (9-23); CALCIUM LEVEL 8.7 MG/DL (8.3-10.6); CARBON DIOXIDE LEVEL 32 MMOL/L (20-31); CHLORIDE LEVEL 105 MMOL/L (98-107); CREATININE FOR GFR 0.81 MG/DL (0.70-1.30); GLOMERULAR FILTRATION RATE > 60.0 (>49); GLUCOSE, FASTING 108 MG/DL (74-106); POTASSIUM SERUM 3.9 MMOL/L (3.5-5.1); SODIUM LEVEL 144 MMOL/L (136-145); TOTAL PROTEIN 5.7 G/DL (5.7-8.2)
== END ==
LOC: SKLAB2 07:00
PROVIDERS: ATTEND Internal Medicine
DX: I10 Essential (primary) hypertension (principal)

== ENCOUNTER → 2024-11-07 | Outpatient (REF) | payer OTHER ==
[2024-11-07 10:00] LABS: BASO # 0.1 10^3/uL (0.0-0.2); BASO % 0.5 % (0.0-1.0); EOS # 0.3 10^3/uL (0.0-0.5); EOS % 3.4 % (0.0-3.0); HEMATOCRIT 36.5 % (42.0-52.0); HEMOGLOBIN 10.3 g/dl (13.5-17.5); LYMPH # 1.6 10^3/uL (1.5-5.0); LYMPH % 16.7 % (24.0-44.0); MEAN CORPUSCULAR HEMOGLOBIN 19.1 pg (27.0-33.0); MEAN CORPUSCULAR HGB CONC 28.2 g/dl (32.0-36.5); MEAN CORPUSCULAR VOLUME 67.6 fl (80.0-96.0); MONO # 0.8 10^3/uL (0.0-0.8); MONO % 8.5 % (2.0-8.0); NEUTROPHILS # 6.6 10^3/uL (1.5-8.5); NEUTROPHILS % 70.5 % (36.0-66.0); PLATELET COUNT, AUTOMATED 400 10^3/uL (150-450); WHITE BLOOD COUNT 9.4 10^3/uL (4.0-10.0)
[2024-11-07 10:44] LABS: BLOOD UREA NITROGEN 17 MG/DL (9-23); CALCIUM LEVEL 8.9 MG/DL (8.3-10.6); CARBON DIOXIDE LEVEL 30 MMOL/L (20-31); CHLORIDE LEVEL 105 MMOL/L (98-107); CREATININE FOR GFR 0.83 MG/DL (0.70-1.30); GLOMERULAR FILTRATION RATE > 60.0 (>49); GLUCOSE, FASTING 109 MG/DL (74-106); MAGNESIUM LEVEL 1.4 MG/DL (1.8-2.4); POTASSIUM SERUM 3.7 MMOL/L (3.5-5.1); SODIUM LEVEL 140 MMOL/L (136-145)
[2024-11-07 10:46] LABS: FOLLICLE STIMULATING HORMONE < 0.3 mIU/ML (1.4-18.1); TOTAL 25(OH) VITAMIN D 39.5 NG/ML (20.0-100.0)
[2024-11-07 10:47] LABS: LUTEINIZING HORMONE < 0.1 mIU/ML (1.5-9.3); PROLACTIN 18.33 NG/ML (2.1-17.7)
[2024-11-07 10:58] LABS: HEMOGLOBIN A1c 6.6 % (4.0-6.0)
== END ==
LOC: SKLAB2 08:32
PROVIDERS: ATTEND Internal Medicine
DX: I10 Essential (primary) hypertension (principal); E11.9 Type 2 diabetes mellitus without complications; E29.1 Testicular hypofunction; Z79.899 Other long term (current) drug therapy

== ENCOUNTER → 2024-11-28 | Outpatient (REF) | payer MEDICARE, OTHER ==
[2024-11-28 13:53] LABS: BASO # 0.1 10^3/uL (0.0-0.2); BASO % 0.4 % (0.0-1.0); EOS # 0.2 10^3/uL (0.0-0.5); EOS % 1.5 % (0.0-3.0); HEMATOCRIT 37.7 % (42.0-52.0); HEMOGLOBIN 10.8 g/dl (13.5-17.5); LYMPH % 8.6 % (24.0-44.0); MEAN CORPUSCULAR HEMOGLOBIN 19.1 pg (27.0-33.0); MEAN CORPUSCULAR HGB CONC 28.6 g/dl (32.0-36.5); MEAN CORPUSCULAR VOLUME 66.7 fl (80.0-96.0); MONO # 0.7 10^3/uL (0.0-0.8); MONO % 5.8 % (2.0-8.0); NEUTROPHILS # 10.1 10^3/uL (1.5-8.5); NEUTROPHILS % 83.4 % (36.0-66.0); PLATELET COUNT, AUTOMATED 408 10^3/uL (150-450); RED BLOOD COUNT 5.65 10^6/uL (4.30-6.10); WHITE BLOOD COUNT 12.1 10^3/uL (4.0-10.0)
[2024-11-28 14:31] LABS: LDH LACTATE DEHYDROGENASE 193 U/L (120-246)
[2024-11-28 14:34] LABS: ALBUMIN 3.4 G/DL (3.2-5.2); ALKALINE PHOSPHATASE 121 U/L (40-129); ALT/SGPT 22 U/L (7.0-40); AST/SGOT 21 U/L (<34); BILIRUBIN,TOTAL 0.4 MG/DL (0.3-1.2); BLOOD UREA NITROGEN 16 MG/DL (9-23); CARBON DIOXIDE LEVEL 28 MMOL/L (20-31); CHLORIDE LEVEL 101 MMOL/L (98-107); CREATININE FOR GFR 0.85 MG/DL (0.70-1.30); GLOMERULAR FILTRATION RATE > 60.0 (>49); GLUCOSE, FASTING 165 MG/DL (74-106); MAGNESIUM LEVEL 1.3 MG/DL (1.8-2.4); PHOSPHORUS LEVEL 3.1 MG/DL (2.4-5.1); SODIUM LEVEL 142 MMOL/L (136-145); TOTAL PROTEIN 6.3 G/DL (5.7-8.2)
== END ==
LOC: M LAB REF 13:39
PROVIDERS: ATTEND Internal Medicine Hematology
DX: Z94.81 Bone marrow transplant status (principal)

== ENCOUNTER → 2024-12-17 | Outpatient (REF) | payer MEDICARE, OTHER ==
[2024-12-17 15:28] LABS: BASO % 0.2 % (0.0-1.0); EOS # 0.1 10^3/uL (0.0-0.5); EOS % 1.1 % (0.0-3.0); HEMATOCRIT 37.7 % (42.0-52.0); HEMOGLOBIN 10.7 g/dl (13.5-17.5); LYMPH # 0.4 10^3/uL (1.5-5.0); MEAN CORPUSCULAR HEMOGLOBIN 18.5 pg (27.0-33.0); MEAN CORPUSCULAR HGB CONC 28.4 g/dl (32.0-36.5); MEAN CORPUSCULAR VOLUME 65.3 fl (80.0-96.0); MONO # 0.8 10^3/uL (0.0-0.8); MONO % 6.4 % (2.0-8.0); NEUTROPHILS # 11.6 10^3/uL (1.5-8.5); PLATELET COUNT, AUTOMATED 396 10^3/uL (150-450); RED BLOOD COUNT 5.77 10^6/uL (4.30-6.10); WHITE BLOOD COUNT 13.1 10^3/uL (4.0-10.0)
[2024-12-17 15:52] LABS: BLOOD UREA NITROGEN 17 MG/DL (9-23); CALCIUM LEVEL 8.6 MG/DL (8.3-10.6); CARBON DIOXIDE LEVEL 27 MMOL/L (20-31); CHLORIDE LEVEL 102 MMOL/L (98-107); CREATININE FOR GFR 0.86 MG/DL (0.70-1.30); GLOMERULAR FILTRATION RATE > 60.0 (>49); GLUCOSE, FASTING 157 MG/DL (74-106); POTASSIUM SERUM 3.5 MMOL/L (3.5-5.1); SODIUM LEVEL 140 MMOL/L (136-145)
== END ==
LOC: SKLAB2 13:14
PROVIDERS: ATTEND Internal Medicine
DX: R11.2 Nausea with vomiting, unspecified (principal); R19.7 Diarrhea, unspecified

== ENCOUNTER → 2025-01-09 | Outpatient (REF) | payer MEDICARE, OTHER ==
[2025-01-09 11:47] LABS: HEMOGLOBIN A1c 6.5 % (4.0-6.0)
[2025-01-09 11:52] LABS: BLOOD UREA NITROGEN 24 MG/DL (9-23); CALCIUM LEVEL 8.4 MG/DL (8.3-10.6); CARBON DIOXIDE LEVEL 31 MMOL/L (20-31); CHLORIDE LEVEL 101 MMOL/L (98-107); CREATININE FOR GFR 0.88 MG/DL (0.70-1.30); GLOMERULAR FILTRATION RATE > 90.0 (>49); GLUCOSE, FASTING 176 MG/DL (74-106); POTASSIUM SERUM 3.8 MMOL/L (3.5-5.1); SODIUM LEVEL 143 MMOL/L (136-145)
[2025-01-10 13:37] LABS: CREATININE, URINE 103.62 MG/DL
== END ==
LOC: M LAB REF 10:46
PROVIDERS: ATTEND Nurse Practitioner Family
DX: E11.9 Type 2 diabetes mellitus without complications (principal)

== ENCOUNTER → 2025-05-07 | Outpatient (REF) | payer MEDICARE, OTHER ==
[~2025-05-07] MED LIST changes: -PRED50TA PO; +PRED50TA57 PO
[2025-05-07 11:16] LABS: CALCIUM LEVEL 8.9 MG/DL (8.3-10.6); CARBON DIOXIDE LEVEL 31 MMOL/L (20-31); CHLORIDE LEVEL 101 MMOL/L (98-107); CHOLESTEROL LEVEL 118 MG/DL (<200); CHOLESTEROL RISK RATIO 3.01 (<5); CREATININE FOR GFR 0.85 MG/DL (0.70-1.30); GLOMERULAR FILTRATION RATE > 90.0 (>49); LDL CHOLESTEROL 58.8 MG/DL (<100); NON-HDL-C 78.8 MG/DL; POTASSIUM SERUM 3.6 MMOL/L (3.5-5.1); SODIUM LEVEL 142 MMOL/L (136-145); TRIGLYCERIDES LEVEL 100 MG/DL (<150)
[2025-05-07 11:19] LABS: TOTAL 25(OH) VITAMIN D 49.8 NG/ML (20.0-100.0)
[2025-05-07 11:28] LABS: MALB URINE SIEMENS 50.0 MG/L
[2025-05-07 11:38] LABS: CREATININE, URINE 108.9 MG/DL; MAU/CREAT RATIO 45.9 MCG/MG (0.0-30.0)
[2025-05-09 11:37] LABS: NT PRO BNP SO 579 pg/mL (<125)
== END ==
LOC: M LAB REF 09:51
PROVIDERS: ATTEND Internal Medicine Nephrology
DX: N18.30 Chronic kidney disease, stage 3 unspecified (principal)

== ENCOUNTER → 2025-05-07 | Outpatient (REF) | payer MEDICARE, OTHER ==
[2025-05-07 11:05] LABS: BASO # 0.1 10^3/uL (0.0-0.2); BASO % 1.0 % (0.0-1.0); EOS # 0.8 10^3/uL (0.0-0.5); EOS % 8.2 % (0.0-3.0); LYMPH # 1.9 10^3/uL (1.5-5.0); LYMPH % 20.8 % (24.0-44.0); MONO # 0.9 10^3/uL (0.0-0.8); MONO % 9.5 % (2.0-8.0); NEUTROPHILS # 5.6 10^3/uL (1.5-8.5); NEUTROPHILS % 60.3 % (36.0-66.0); PLATELET COUNT, AUTOMATED 452 10^3/uL (150-450)
[2025-05-07 11:41] LABS: ALT/SGPT 17 U/L (7.0-40); AST/SGOT 29 U/L (<34); CALCIUM LEVEL 9.0 MG/DL (8.3-10.6); CARBON DIOXIDE LEVEL 33 MMOL/L (20-31); CHLORIDE LEVEL 101 MMOL/L (98-107); CREATININE FOR GFR 0.85 MG/DL (0.70-1.30); GLOMERULAR FILTRATION RATE > 90.0 (>49); MAGNESIUM LEVEL 1.3 MG/DL (1.8-2.4); POTASSIUM SERUM 3.7 MMOL/L (3.5-5.1); SODIUM LEVEL 144 MMOL/L (136-145)
[2025-05-07 11:42] LABS: LDH LACTATE DEHYDROGENASE 207 U/L (120-246)
== END ==
LOC: M LAB REF 09:58
PROVIDERS: ATTEND Internal Medicine Hematology
DX: C83.10 Mantle cell lymphoma, unspecified site (principal); Z94.81 Bone marrow transplant status

== ENCOUNTER → 2025-09-09 | Outpatient (CLI) | payer MEDICARE, OTHER ==
[~2025-09-09] MED LIST changes: +ACYC200C10 PO; -ACYC200C8 PO; -LORA-753 PO; +LORA-973 PO
[2025-09-09 12:04] LABS: BASO # 0.1 10^3/uL (0.0-0.2); BASO % 0.9 % (0.0-1.0); EOS # 0.5 10^3/uL (0.0-0.5); EOS % 6.2 % (0.0-3.0); LYMPH # 1.9 10^3/uL (1.5-5.0); LYMPH % 22.6 % (24.0-44.0); MONO # 0.9 10^3/uL (0.0-0.8); MONO % 10.3 % (2.0-8.0); NEUTROPHILS # 4.9 10^3/uL (1.5-8.5); NEUTROPHILS % 59.9 % (36.0-66.0); PLATELET COUNT, AUTOMATED 409 10^3/uL (150-450)
[2025-09-09 12:06] LABS: APPEARANCE, URINE CLOUDY (CLEAR); BACTERIA, URINE AUTO NEGATIVE (NEGATIVE); BILIRUBIN, URINE AUTO NEGATIVE (NEGATIVE); BLOOD, URINE BLOOD NEGATIVE (NEGATIVE); GLUCOSE, URINE (UA) AUTO NEGATIVE (NEGATIVE); KETONE, URINE AUTO NEGATIVE (NEGATIVE); LEUKOCYTE ESTERASE, URINE AUTO 3+ (NEGATIVE); NITRITE, URINE AUTO NEGATIVE (NEGATIVE); PROTEIN, URINE AUTO 2+ mg/dL (NEGATIVE); RBC, URINE AUTO 15 /HPF (0-3); SPECIFIC GRAVITY URINE AUTO 1.016 (1.002-1.035); SQUAMOUS EPITHELIAL CELL UR AU 0 /HPF (0-6); UROBILINOGEN, URINE AUTO 0.2 mg/dL (0.0-2.0); WBC, URINE AUTO TNTC /HPF (0-3); YEAST LIKE CELL URINE AUTO MODERATE
[2025-09-09 12:33] LABS: CREATININE, URINE 111.7 MG/DL; MALB URINE SIEMENS 47.0 MG/L; MAU/CREAT RATIO 42.0 MCG/MG (0.0-30.0)
[2025-09-09 12:35] LABS: C REACTIVE PROTEIN QUANTITATIV < 0.50 MG/DL (<1.0); CALCIUM LEVEL 8.6 MG/DL (8.3-10.6); CARBON DIOXIDE LEVEL 28 MMOL/L (20-31); CHLORIDE LEVEL 107 MMOL/L (98-107); CHOLESTEROL LEVEL 108 MG/DL (<200); CHOLESTEROL RISK RATIO 2.87 (<5); CREATININE FOR GFR 0.89 MG/DL (0.70-1.30); GLOMERULAR FILTRATION RATE > 90.0 (>49); LDL CHOLESTEROL 58.2 MG/DL (<100); NON-HDL-C 70.4 MG/DL; POTASSIUM SERUM 4.3 MMOL/L (3.5-5.1); SODIUM LEVEL 142 MMOL/L (136-145); TRIGLYCERIDES LEVEL 61 MG/DL (<150)
[2025-09-09 12:37] LABS: FREE T4 1.37 NG/DL (0.89-1.76)
[2025-09-09 12:40] LABS: TOTAL 25(OH) VITAMIN D 34.8 NG/ML (20.0-100.0)
[2025-09-09 13:21] LABS: ESTIMATED AVERAGE GLUCOSE 126.0 MG/DL (60-110)
[2025-09-10 17:53] LABS: LDL DIRECT 55 mg/dL (<100)
== END ==
LOC: M LAB 11:22
PROVIDERS: ATTEND Internal Medicine Nephrology
DX: E29.1 Testicular hypofunction (principal); N04.9 Nephrotic syndrome with unspecified morphologic changes; Z79.899 Other long term (current) drug therapy